=== PATIENT | female | born 1965 ===

== ENCOUNTER 2018-09-21 07:12 | Observation (INO) | payer MEDICARE, OTHER ==
[2018-09-21] VITALS (14 sets, daily range): BP systolic 119–183; BP diastolic 55–76
[~2018-09-21] VITALS: Ht 162.6 cm; Wt 108.0 kg
[2018-09-21 08:31] LABS: BASOPHILS % (AUTO) 1.2 % (0.0-2.0); EOSINOPHILS % (AUTO) 5.1 % (0.0-3.0); HEMATOCRIT 25.4 % (37.0-47.0); HEMOGLOBIN 8.7 G/DL (12.0-16.0); LYMPHOCYTES % (AUTO) 21.5 % (20.0-45.0); MEAN CORPUSCULAR VOLUME 99 FL (80-99); MONOCYTES % (AUTO) 8.8 % (1.0-10.0); NEUTROPHILS % (AUTO) 63.4 % (45.0-75.0); PLATELET COUNT 150 K/UL (150-450); RED BLOOD COUNT 2.57 M/UL (4.20-5.40); RED CELL DISTRIBUTION WIDTH 19.1 % (11.6-14.8); WHITE BLOOD COUNT 6.5 K/UL (4.8-10.8)
[2018-09-21 08:43] LABS: ANION GAP 11 mmol/L (5-15); BLOOD UREA NITROGEN 44 mg/dL (7-18); CARBON DIOXIDE 24 MMOL/L (21-32); CHLORIDE 99 MMOL/L (98-107); CREATININE 3.4 MG/DL (0.55-1.30); POTASSIUM 4.1 MMOL/L (3.5-5.1); SODIUM 134 MMOL/L (136-145)
[2018-09-21] MEDS ORDERED: NEPHRO AID GT (08:46)
[2018-09-21] MEDS ORDERED: LOSARTAN POTASS25 MG ORAL (08:47)
[2018-09-21] MEDS ORDERED: ASCORBIC ACID500 MG GT (08:48)
[2018-09-21] MEDS ORDERED: NORVASC5 MG GT (08:49)
[2018-09-21] MEDS ORDERED: prostat sf GT (08:51)
[2018-09-21] MEDS ORDERED: QUESTRAN PACKET4 G1 GT (09:03)
[2018-09-21] MEDS ORDERED: HYDRALAZINE HCL50 MG GT (09:04)
[2018-09-21] MEDS ORDERED: OYSTER SHELL C500 MG GT (09:05)
[2018-09-21] MEDS ORDERED: KEPPRA1000 MG GT (09:06)
[2018-09-21] MEDS ORDERED: Vit D3 GT (09:07)
[2018-09-21] MEDS ORDERED: LEVEMIR FL100 UNIT/1 SUBQ (09:08)
[2018-09-21] MEDS ORDERED: [UNRECOGNIZED DRUG - OTHER] GT (09:09)
[2018-09-21] MEDS ORDERED: RENVELA0.8 GM GT (09:10)
[2018-09-21] MEDS ORDERED: HUMULIN R100 UNIT/1 SUBQ (09:11)
--- NOTE | 2018-09-21 09:50 | Anethesia Preoperative Eval ---
Anesthesia Pre-op PMH/ROS General Date of Evaluation: Sep 21, 2018 Anesthesiologist: Michael ASA Score: ASA 4 Mallampati Score Class I : Soft palate, uvula, fauces, pillars visible Class II: Soft palate, uvula, fauces visible Class III: Soft palate, base of uvula visible Class IV: Only hard plate visible Mallampati Classification: Class III Surgeon: Lee Diagnosis: ESRD Surgical Procedure: Right arm AV shunt Anesthesia History: none Family History: no anesthesia problems Allergies: Coded Allergies: VANCOMYCIN (Verified Allergy, Unknown, unknown, 09/21/18) Medications: see eMAR Patient NPO?: Yes NPO Date: Sep 20, 2018 NPO Time: 23:00 Past Medical History Cardiovascular: Reports: HTN, CO, other - CHF, HLD; Denies: CAD, valve dz, arrhythmia Pulmonary: Reports: COPD, other - respiratory failure, vent dependent, s/p trach; Denies: asthma, KOURTNEY Gastrointestinal/Genitourinary: Reports: ESRD; Denies: GERD, CRI, other Neurologic/Psychiatric: Reports: CVA, other - encephalopathy, seizure d/o; Denies: dementia, depression/anxiety, TIA Endocrine: Reports: DM; Denies: hypothyroidism, steroids, other HEENT: Denies: cataract (L), cataract (R), glaucoma, YOCHA DEHE (L), YOCHA DEHE (R), other Hematology/Immune: Reports: anemia - chronic; Denies: DVT, bleeding disorder, other Musculoskeletal/Integumentary: 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 Exam Physician Exam Last Vital Signs Date Time Temp Pulse Resp B/P (MAP) Pulse Ox O2 Delivery O2 Flow Rate FiO2 09/21/18 08:00 97.4 62 20 119/57 100 Mechanical Ventilator 40 Constitutional: NAD, other - unresponsisve Cardiovascular: RRR, other - trach in place, on mechanical ventilation Respiratory: CTA Airway Exam Mallampati Score: Class III MO: limited ROM: limited Anesthesia Pre-op A/P Labs Hematology Test 09/21/18 08:10 White Blood Count 6.5 K/UL (4.8-10.8) Red Blood Count 2.57 M/UL (4.20-5.40) L Hemoglobin 8.7 G/DL (12.0-16.0) L Hematocrit 25.4 % (37.0-47.0) L Mean Corpuscular Volume 99 FL (80-99) Mean Corpuscular Hemoglobin 33.9 PG (27.0-31.0) H Mean Corpuscular Hemoglobin Concent 34.3 G/DL (32.0-36.0) Red Cell Distribution Width 19.1 % (11.6-14.8) H Platelet Count 150 K/UL (150-450) Mean Platelet Volume 6.8 FL (6.5-10.1) Neutrophils (%) (Auto) 63.4 % (45.0-75.0) Lymphocytes (%) (Auto) 21.5 % (20.0-45.0) Monocytes (%) (Auto) 8.8 % (1.0-10.0) Eosinophils (%) (Auto) 5.1 % (0.0-3.0) H Basophils (%) (Auto) 1.2 % (0.0-2.0) Coagulation Test 09/21/18 08:10 Prothrombin Time 10.1 SEC (9.30-11.50) Prothromb Time International Ratio 1.0 (0.9-1.1) Activated Partial Thromboplast Time 27 SEC (23-33) Chemistry Test 09/21/18 08:10 Sodium Level 134 MMOL/L (136-145) L Potassium Level 4.1 MMOL/L (3.5-5.1) Chloride Level 99 MMOL/L (98-107) Carbon Dioxide Level 24 MMOL/L (21-32) Anion Gap 11 mmol/L (5-15) Blood Urea Nitrogen 44 mg/dL (7-18) H Creatinine 3.4 MG/DL (0.55-1.30) H Estimat Glomerular Filtration Rate 14.2 mL/min (>60) Glucose Level 156 MG/DL (74-106) H Calcium Level 9.0 MG/DL (8.5-10.1) Studies Pre-op Studies: EKG - sb @ 58 Risk Assessment & Plan Assessment: ASA IV Plan: GA Status Change Before Surgery: No Pre-Antibiotics Drug: Ancef 2g Given Within 1 Hr of Incision: Marta Damian MD Sep 21, 2018 09:50
[2018-09-21] MEDS ORDERED: fentaNYL 100 mcg/2 mL IV ONE (11:41)
[2018-09-21] MEDS ORDERED: Lidocaine 1% MPF 10mg/ml 5ml ONE (11:41)
[2018-09-21] MEDS ORDERED: Propofol 200mg/20ml IV ONE (11:41)
[2018-09-21] MEDS ORDERED: Midazolam 2mg/2ml Inj ONE (11:42)
[2018-09-21] MEDS ORDERED: Bacitracin Oint 15gm Tube TOPIC ONE (11:51)
[2018-09-21] MEDS ORDERED: Heparin 1000 units/ml 1ml Vial ONE (11:51)
[2018-09-21] MEDS ORDERED: Heparin 5000 units/ml inj ONE (11:51)
[2018-09-21] MEDS ORDERED: Bacitracin 50000 Units Vial ONE (11:52)
[2018-09-21] MEDS ORDERED: Bupivacaine 0.5% 10ml INJ ONE (11:52)
[2018-09-21] MEDS ORDERED: Lidocaine 1% Plain 30 ml INJ ONE (11:52)
[2018-09-21] MEDS ORDERED: LR 1000ml ONE (12:00)
[2018-09-21] MEDS ORDERED: NS Irrig 1000ml ONE (12:00)
[2018-09-21] MEDS ORDERED: Sterile Water Irrig 1000ml IRRIG ONE (12:00)
[2018-09-21] MEDS ORDERED: Hydromorphone 0.5mg/0.5ml inj IVP PRN (12:30)
[2018-09-21] MEDS ORDERED: LORazepam Inj 2mg/ml 1ml IV PRN (12:30)
[2018-09-21] MEDS ORDERED: DiphenhydrAMINE 50mg/ml Inj IVP PRN (12:30)
[2018-09-21] MEDS ORDERED: Metoclopramide 10mg/2ml Inj IVP PRN (12:30)
[2018-09-21] MEDS ORDERED: fentaNYL 100 mcg/2 mL IV PRN (12:30)
[2018-09-21] MEDS ORDERED: Midazolam 2mg/2ml Inj IVP PRN (12:30)
--- NOTE | 2018-09-21 12:38 | Pre-Procedure Note/Attestation ---
Pre-Procedure Note/Attestation Complete Prior to Procedure Planned Procedure: right Procedure Narrative: arm AVF exploration, possible revision, transposition, ligation, catheter replacement Indications for Procedure Pre-Operative Diagnosis: ESRD; inaccessible AVF Attestation I attest that I discussed the nature of the procedure; its benefits; risks and complications; and alternatives (and the risks and benefits of such alternatives ), prior to the procedure, with the patient (or the patient's legal veterans service representative). I attest that, if there was a reasonable possibility of needing a blood transfusion, the patient (or the patient's legal veterans service representative) was given the [facility] standardized written summary, pursuant to the Lucien Monica Blood Safety Act ([place] Health and Safety Code # 1645, as amended). I attest that I re-evaluated the patient just prior to the surgery and that there has been no change in the patient's H&P, except as documented below: Juanjo Howard MD Sep 21, 2018 12:38
--- NOTE | 2018-09-21 15:00 | Immediate Post-Op Evaluation ---
Immediate Post-Op Evalulation Immediate Post-Op Evalulation Procedure: Right arm AV shunt Date of Evaluation: Sep 21, 2018 Time of Evaluation: 15:01 IV Fluids: 400 Blood Products: 0 Estimated Blood Loss: min Urinary Output: 0 Blood Pressure Systolic: 131 Blood Pressure Diastolic: 56 Pulse Rate: 58 Respiratory Rate: 16 O2 Sat by Pulse Oximetry: 100 Temperature (Fahrenheit): 97.8 Pain Score (1-10): 0 Nausea: No Vomiting: No Complications 0 Patient Status: no response - baseline, ventilated - baseline, none Hydration Status: adequate Drug: Ancef 2g Given Within 1 Hr of Incision: Yes Marta Guerra MD Sep 21, 2018 15:00
--- NOTE | 2018-09-21 15:24 | Brief Operative Note ---
Immediate Post Operative Note Operative Note Pre-op Diagnosis: ESRD; inaccessible AVF Procedure: right arm AVF exploration and revision Post-op Diagnosis: same as pre-op Findings: consistent w/pre-op dx studies Surgeon: Marito Howard Anesthesia: general Specimen: none Complications: none Condition: stable Fluids: see anesth. record Estimated Blood Loss: minimal Drains: none Implant(s) used?: No Juanjo Howard MD Sep 21, 2018 15:24
--- NOTE | 2018-09-21 16:10 | NUR ---
NURSE NOTES: RECEIVED A NEW ADMISSION VIA BED ESCORTED BY [employer] TRAVEL COUNSELOR OF PACU.PT TRACH TO VENT OBTUNDED.PT ADMITED WITH DX OF ESRD,RIGHT ARM AV SHUNT REVISION.PT S/P EXPLORATION AND REVISION OF AV OF RT UPPER ARM.PT ASSESSED WITH DOPPLER GOOD BRUIT AND THRILL NOTED .PT TOLERATING WELL CURRENT VENT SETTINGS,SAT 99%.PT VENT SETTINGS AC-16,TV 500,PEEP-5,FIO2 40%.PT WITH PORTEX #8 PATENT AND INTACT.FULL BODY ASSESSMENT DONE ASSISTED WITH DULCE MARIA RN IN CHARGE.NO EVIDENCE OF PRESSURE ULCER NOTED AT THIS TIME.PLACED A TELEPHONE CALL TO DR BARRAGAN AND LEFT MESSAGE ON EMERGENCY VOICE MAIL REGARDING NEW ADMISSION.A WAITING FOR M.D TO CALL ME BACK.WILL CONT TO MONITOR.
--- NOTE | 2018-09-21 19:30 | NUR ---
HAND-OFF: Report given to .LIANE HERNANDEZ.
--- NOTE | 2018-09-21 19:30 | NUR ---
NURSE NOTES: Received report from Irene Santana RN. Patient is asleep in bed, obtunded. Sinus rhythm on toy assembler. Trach-vent settings: Portex 8, AC 16, Vt 500, FiO2 40%, PEEP 5 and saturating well. S/p right upper arm AV shunt. Mahurkur catheter noted on left subclavian. Left lower leg 24g IV saline lock, intact and patent. Awaiting further admit orders. Will contact MD. Bed locked in lowest position with padded side rails up x3. Call light left within reach. Will continue to monitor.
--- NOTE | 2018-09-21 20:30 | Consultation ---
DATE OF CONSULTATION: 09/21/2018 PULMONARY CONSULTATION CONSULTING PHYSICIAN: Wade Garcia M.D. REFERRING PHYSICIAN: Miguelangel Nagy MD REASON FOR CONSULTATION: Respiratory failure. HISTORY OF PRESENT ILLNESS: This is a 53-year-old unfortunate female who presented for right arm AV fistula exploration and revision. I was asked to assist and help monitor the ventilator. The patient is chronically ventilator dependent. The patient unable to give any history. The patient has end-stage dialysis need as well. The patient's care reviewed and discussed with the nursing staff. The findings noted and reviewed. The patient's [facility] records as well reviewed in detail. PAST MEDICAL HISTORY: Notable for respiratory failure, tracheostomy, renal failure, hypertension, diabetes, seizure disorder, hypertensive heart disease. MEDICATIONS: Reviewed. ALLERGIES: Reviewed. SOCIAL HISTORY: Noted and reviewed. The patient is a fpc patient. REVIEW OF SYSTEMS: Unobtainable due to the patient's present state. PHYSICAL EXAMINATION: GENERAL: An ill-appearing female. VITAL SIGNS: Blood pressure 129/55, pulse 60, respiratory rate 16, saturations 98%, temperature is 97.1. HEENT: Fairly negative. NECK: Supple. Trachea is midline. LUNGS: Moderate breath sounds. Occasional rhonchi. CARDIAC: Slightly distant but appears to be overall regular. The patient is without clear murmurs, rubs, gallops. ABDOMEN: Overall soft, nontender. G-tube in place. EXTREMITIES: No cyanosis or clubbing. Fistula noted in place. The ventilator noted. The patient mechanically ventilated. Respiratory rate 16. The patient is on full support at this time. LABORATORY DATA: Otherwise reviewed. Hemoglobin 8.7, hematocrit 25. Chemistries noted and reviewed. BUN reviewed , creatinine 3.4. IMPRESSION: 1. Respiratory failure. 2. Tracheostomy. 3. Chronic encephalopathy. 4. End-stage renal disease. 5. AV fistula exploration and revision. 6. Chronic anemia. RECOMMENDATION: 1. Supportive care. 2. Maintain ventilatory management, followup and recommend. 3. Medications noted and reviewed. 4. Hemodialysis per Renal. 5. Feedings and monitor acid base exchange. 6. We will follow clinically recommended. I appreciate the opportunity to assist you in this patient's case. Wade Garcia M.D. DR: Guanakito JOB#: [id number] CC: EDENILSON
--- NOTE | 2018-09-21 20:30 | NUR ---
NURSE NOTES: Received further admission orders from Dr. Jose MD. Noted and carried. Patient does not have any s/s of acute distress at this time. Will continue to monitor. Addendum: 09/22/18 at 0627 by FRAN LEONE RN Further orders were to continue SNF orders.
[2018-09-21] MEDS ORDERED: Acetaminophen 650mg/20.3ml GT PRN (20:45)
[2018-09-21] MEDS ORDERED: Levemir Flexpen SUBQ SCH (21:00)
[2018-09-21] MEDS: Losartan 25mg tab ORAL SCH (22:29)
[2018-09-21] MEDS: NovoLOG Insulin Flexpen SUBQ SCH (22:31)
[2018-09-22] VITALS: BP 152/80
[2018-09-22] MEDS ORDERED: Dyna-Hex 2% Top Sol 2oz TOPIC ONE
[2018-09-22 04:00] VITALS: BP 137/65
[2018-09-22] MEDS: HydrALAZINE 50mg tab GT SCH ×2 (06:11→13:22)
[2018-09-22] MEDS: NovoLOG Insulin Flexpen SUBQ SCH (06:12)
[2018-09-22] MEDS ORDERED: NovoLOG Insulin Flexpen SUBQ SCH ×2 (06:30→12:00)
[2018-09-22 06:31] LABS: ANION GAP 13 mmol/L (5-15); BLOOD UREA NITROGEN 54 mg/dL (7-18); CALCIUM 8.7 MG/DL (8.5-10.1); CARBON DIOXIDE 23 MMOL/L (21-32); CHLORIDE 100 MMOL/L (98-107); CREATININE 4.4 MG/DL (0.55-1.30); POTASSIUM 3.4 MMOL/L (3.5-5.1); SODIUM 136 MMOL/L (136-145)
--- NOTE | 2018-09-22 06:31 | 48 Hour Post Anesthesia Eval ---
Post Anesthesia Evaluation Procedure: Right arm AV shunt Date of Evaluation: Sep 22, 2018 Time of Evaluation: 06:10 Blood Pressure Systolic: 137 0: 65 Pulse Rate: 71 Respiratory Rate: 18 Temperature (Fahrenheit): 99 O2 Sat by Pulse Oximetry: 100 Airway: other - on mechanical ventilatin Nausea: No Vomiting: No Pain Intensity: 0 Hydration Status: adequate Cardiopulmonary Status: at baseline Mental Status/LOC: patient returned to baseline Post-Anesthesia Complications: 0 Follow-up care needed: N/A - further care as per primary team Marta Guerra MD Sep 22, 2018 06:31
--- NOTE | 2018-09-22 06:40 | NUR ---
NURSE NOTES: Left message for Dr. Yakov MD regarding patient's potassium trending down to 3.4. Awaiting response.
--- NOTE | 2018-09-22 07:10 | NUR ---
HAND-OFF: Report given to Irene Caro RN.
[2018-09-22 07:11] LABS: BASOPHILS % (AUTO) 0.7 % (0.0-2.0); EOSINOPHILS % (AUTO) 2.8 % (0.0-3.0); HEMATOCRIT 26.2 % (37.0-47.0); HEMOGLOBIN 8.9 G/DL (12.0-16.0); LYMPHOCYTES % (AUTO) 21.2 % (20.0-45.0); MEAN CORPUSCULAR VOLUME 99 FL (80-99); MONOCYTES % (AUTO) 8.3 % (1.0-10.0); NEUTROPHILS % (AUTO) 66.9 % (45.0-75.0); PLATELET COUNT 130 K/UL (150-450); RED BLOOD COUNT 2.64 M/UL (4.20-5.40); RED CELL DISTRIBUTION WIDTH 19.6 % (11.6-14.8); WHITE BLOOD COUNT 7.3 K/UL (4.8-10.8)
--- NOTE | 2018-09-22 07:11 | NUR ---
NURSE NOTES: Received patient from DAVID Lau. Patient in bed and obtunded. lunchroom monitor in placed. Trach to vent dependent Portex 8 AC 16 TV 500 Fi02 40% Peep 5. Gtube feeding of Nephro at 30cc/hour - 50cc/hour(goal). SHERRY AV shunt covered with dressing. Eliza Dewey Subclavian and Left lower leg IV site asymptomatic. Per PM nurse, Dr. Nagy was called regarding potassium of 3.4. Awaiting for call back. Bed in lowest position with side rails up. Will continue to follow plan of care.
[2018-09-22 08:00] VITALS: BP 133/79
[2018-09-22] MEDS ORDERED: Heparin 5000 units/ml inj SUBQ SCH (09:00)
[2018-09-22] MEDS ORDERED: Ascorbic Acid 500mg tab GT SCH (09:00)
[2018-09-22] MEDS ORDERED: levETIRAcetam 500mg/5ml Liquid GT SCH (09:00)
[2018-09-22] MEDS ORDERED: Cholestyramine 4gm Pkt GT SCH (09:00)
[2018-09-22] MEDS: Losartan 25mg tab ORAL SCH (09:25)
[2018-09-22] MEDS: Renvela 800mg Pkt GT SCH ×2 (09:26→13:22)
--- NOTE | 2018-09-22 10:11 | NUR ---
RD ASSESSMENT & RECOMMENDATIONS SEE CARE ACTIVITY FOR COMPLETE ASSESSMENT DAILY ESTIMATED NEEDS: Needs based on ESRD on HD, Critical care 65.9kg adj 24-30 kcals/kg 3212-7220 total kcals 1.2-2 g protein/kg 79-132 g total protein Fluid per MD, on HD NUTRITION DIAGNOSIS: 1) Increased kcal and protein needs r/t renal dysfunction as evidenced by pt w/ ESRD on HD 2) Swallowing difficulty r/r respiratory status as evidenced by pt is vent dep via trach, PEG dep. CURRENT TF: NEPRO @50ml/hr x18 hrs ENTERAL NUTRITION RECOMMENDATIONS: REC TF change to 45ml/hr x20 hrs + Prosource x1 daily to provide 900ml, 1620 kcal, 73g + 11g prot, 654ml free H20 - REC TO LOWER TF TO 45ML/ HR and INCREASE RUN TIME TO 20HRS per day - Add PROSOURCE 1 packet daily to better meet est prot needs - Flush per MD/ HOB over 30 degrees ADDITIONAL RECOMMENDATIONS: 1) Daily CALIBRATED BED SCALE WTS PER SNF: 220# (100kg) from 09/19/18 2) Monitor lytes daily 3) Add NEPHROVITE x1 daily
--- NOTE | 2018-09-22 10:27 | History and Physical ---
History of Present Illness General Date patient seen: Sep 22, 2018 Present Illness HPI 53 y/o female with ESRD, chronic respiratory failure, admitted to observation last night after exploration and revision of upper ext fistula for future access for HD. Pt. with no specific c/o, seen by pulmonary for vent help pt post op tolerating tube feeds, mental status stable and at baseline Allergies: Coded Allergies: VANCOMYCIN (Verified Allergy, Unknown, unknown, 09/21/18) Medication History Scheduled Amlodipine Besylate (Norvasc), 5 MG GT DAILY, (Reported) Ascorbic Acid* (Ascorbic Acid*), 500 MG GT DAILY, (Reported) Calcium Carbonate (Oyster Shell Calcium), 500 MG GT BID, (Reported) Cholestyramine (with Sugar) (Questran Packet), 2 PACKET GT DAILY, (Reported) Hydralazine Hcl* (Hydralazine Hcl*), 50 MG GT TID, (Reported) Insulin Detemir (Levemir Flexpen), 28 SUBQ Q12HR, (Reported) Levetiracetam (Keppra), 1,000 MG GT DAILY, (Reported) Losartan Potassium* (Losartan Potassium*), 25 MG ORAL Q12HR, (Reported) Sevelamer Carbonate* (Renvela*), 800 MG GT THREE TIMES A DAY, (Reported) [Vit D3], 50,000 INTLU GT QWEEK, (Reported) [nephro aid], 1 TAB GT DAILY, (Reported) [neutrophos], 1 PACKET GT DAILY, (Reported) [prostat sf], 30 ML GT BID, (Reported) Miscellaneous Medications Insulin Regular, Human (Humulin R), 0 SUBQ, (Reported) Medications Narrative see list reviewed Patient History Healthcare decision maker Resuscitation status Full Code Advanced Directive on File Review of Systems Constitutional: Reports: no symptoms Eye: Reports: no symptoms Respiratory: Reports: shortness of breath, other Musculoskeletal: Denies: no symptoms, see HPI, back pain, gout, joint pain, joint swelling, muscle pain, muscle stiffness, other Skin: Denies: no symptoms, see HPI, rash, change in color, change in hair/nails , dryness, lesions, other Psychiatric: Denies: no symptoms, see HPI, prior hx, anxiety, depressed feelings, emotional problems, SI, HI, hallucinations, other Neurological: Denies: no symptoms, see HPI, headache, numbness, paresthesia, seizure, tingling, tremors, focal weakness, syncope, dizziness, other Endocrine: Denies: no symptoms, see HPI, excessive sweating, flushing, intolerance to temperature, increased thirst, increased urine, unexplained weight loss, other Physical Exam General Appearance: no apparent distress, lethargic, confused Lines, tubes and drains: endotracheal tube, gtube, dialysis access HEENT: normocephalic, atraumatic, EOMI, carotid(s) normal Neck: supple Respiratory/Chest: rhonchi - bilaterally Abdomen: no organomegaly Skin Exam: warm/dry Neurologic: call center trainer II-XII grossly normal Last 24 Hour Vital Signs Date Time Temp Pulse Resp B/P (MAP) Pulse Ox O2 Delivery O2 Flow Rate FiO2 09/22/18 09:25 133/79 09/22/18 09:25 66 133/79 09/22/18 08:51 67 16 40 09/22/18 08:00 40 09/22/18 08:00 98.2 66 16 133/79 (97) 100 09/22/18 06:55 68 16 40 09/22/18 06:31 71 18 100 09/22/18 06:11 137/65 09/22/18 05:14 64 16 40 09/22/18 04:00 40 09/22/18 04:00 99.0 71 18 137/65 (89) 100 09/22/18 03:41 70 09/22/18 02:52 78 18 40 09/22/18 01:45 76 19 40 09/22/18 00:05 70 09/22/18 00:00 40 09/22/18 00:00 98.8 68 18 152/80 (104) 100 09/21/18 22:49 65 16 40 09/21/18 22:29 139/70 09/21/18 21:00 Mechanical Ventilator Mechanical Ventilator 09/21/18 20:35 77 17 40 09/21/18 20:00 98.4 68 16 139/70 (93) 100 09/21/18 19:29 66 09/21/18 19:01 72 18 40 09/21/18 17:53 69 20 Mechanical Ventilator 40 09/21/18 17:52 69 20 40 09/21/18 16:48 Mechanical Ventilator 09/21/18 16:15 98.0 65 19 138/66 (90) 99 09/21/18 16:10 64 09/21/18 15:44 97.1 60 16 129/55 98 Mechanical Ventilator 40 09/21/18 15:28 58 16 129/58 98 Mechanical Ventilator 40 09/21/18 15:15 59 16 137/61 98 Mechanical Ventilator 40 09/21/18 15:15 40 09/21/18 15:00 59 16 132/60 100 Mechanical Ventilator 40 09/21/18 15:00 59 16 134/60 100 Mechanical Ventilator 40 09/21/18 15:00 58 16 100 09/21/18 14:56 98.0 58 16 131/56 100 Mechanical Ventilator 40 09/21/18 10:34 60 16 154/69 (97) 98 Intake and Output 09/21/18 09/22/18 19:00 07:00 Intake Total 500 ml 240 ml Output Total 0 ml Balance 500 ml 240 ml Intake Oral 0 ml Free Water 60 ml IV Total 500 ml Tube Feeding 180 ml Output Urine Total 0 ml # Bowel Movements 2 Laboratory Tests Test 09/22/18 03:05 09/22/18 06:56 Sodium Level 136 MMOL/L (136-145) Potassium Level 3.4 MMOL/L (3.5-5.1) L Chloride Level 100 MMOL/L (98-107) Carbon Dioxide Level 23 MMOL/L (21-32) Anion Gap 13 mmol/L (5-15) Blood Urea Nitrogen 54 mg/dL (7-18) H Creatinine 4.4 MG/DL (0.55-1.30) H Estimat Glomerular Filtration Rate 10.5 mL/min (>60) Glucose Level 115 MG/DL (74-106) H Calcium Level 8.7 MG/DL (8.5-10.1) White Blood Count 7.3 K/UL (4.8-10.8) Red Blood Count 2.64 M/UL (4.20-5.40) L Hemoglobin 8.9 G/DL (12.0-16.0) L Hematocrit 26.2 % (37.0-47.0) L Mean Corpuscular Volume 99 FL (80-99) Mean Corpuscular Hemoglobin 33.8 PG (27.0-31.0) H Mean Corpuscular Hemoglobin Concent 34.0 G/DL (32.0-36.0) Red Cell Distribution Width 19.6 % (11.6-14.8) H Platelet Count 130 K/UL (150-450) L Mean Platelet Volume 6.9 FL (6.5-10.1) Neutrophils (%) (Auto) 66.9 % (45.0-75.0) Lymphocytes (%) (Auto) 21.2 % (20.0-45.0) Monocytes (%) (Auto) 8.3 % (1.0-10.0) Eosinophils (%) (Auto) 2.8 % (0.0-3.0) Basophils (%) (Auto) 0.7 % (0.0-2.0) Height (Feet): 5 Height (Inches): 4.00 Weight (Pounds): 232 Medications Current Medications Medications (Trade) Dose Ordered Sig/Dl Route PRN Reason Start Time Stop Time Status Last Admin Dose Admin Acetaminophen (Tylenol) 650 mg Q4H PRN GT Mild Pain/Temp > 100.5 09/21/18 20:45 10/21/18 20:44 Amlodipine Besylate (Norvasc) 5 mg DAILY GT 09/22/18 09:00 10/22/18 08:59 09/22/18 09:25 Ascorbic Acid (Vitamin C) 500 mg DAILY GT 09/22/18 09:00 10/22/18 08:59 09/22/18 09:25 Calcium Carbonate (Os-Juan Carlos) 500 mg BID GT 09/22/18 09:00 10/22/18 08:59 09/22/18 09:25 Chlorhexidine Gluconate (Martine-Hex 2%) 1 applic DAILY@1999 TOPIC 09/22/18 20:00 10/22/18 19:59 Cholestyramine Resin (Questran) 4 gm DAILY GT 09/22/18 09:00 10/22/18 08:59 09/22/18 09:26 Dextrose (Dextrose 50%) 25 ml Q30M PRN IV Hypoglycemia 09/21/18 20:45 10/21/18 20:44 Dextrose (Dextrose 50%) 50 ml Q30M PRN IV Hypoglycemia 09/21/18 22:00 10/21/18 21:59 Heparin Sodium (Porcine) (Heparin 5000 units/ml) 5,000 units EVERY 12 HOURS SUBQ 09/22/18 09:00 10/22/18 08:59 09/22/18 09:34 Hydralazine HCl (Apresoline) 50 mg Q8HR GT 09/22/18 06:00 10/22/18 05:59 09/22/18 06:11 Insulin Aspart (NovoLOG) EVERY 6 HOURS SUBQ 09/22/18 12:00 10/21/18 22:29 Insulin Detemir (Levemir) 28 units BEDTIME SUBQ 09/22/18 23:00 10/21/18 22:59 Levetiracetam (Keppra) 500 mg Q12HR GT 09/22/18 09:00 10/22/18 08:59 09/22/18 09:25 Losartan Potassium (Cozaar) 25 mg Q12HR ORAL 09/21/18 22:00 10/21/18 21:59 09/22/18 09:25 Sevelamer Carbonate (Renvela) 800 mg THREE TIMES A DAY GT 09/22/18 09:00 10/22/18 08:59 09/22/18 09:26 Assessment/Plan Problem List: (1) ESRD (end stage renal disease) Assessment & Plan: - pt will resume hd tomroow , will arrange as outpt. -s/p new fistula revision -watch lytes, volume closely ICD Codes: N18.6 - End stage renal disease SNOMED: 70543308 (2) Respirator mechanical failure Assessment & Plan: -apprec pulmonary eval, vent settings noted ICD Codes: J95.850 - Mechanical complication of respirator SNOMED: 38192374378546 (3) Dysphagia Assessment & Plan: -cont tube feeds ICD Codes: R13.10 - Dysphagia, unspecified SNOMED: 92301260, 056340628 Status: stable Miguelangel Nagy M.D. Sep 22, 2018 10:27
[2018-09-22] MEDS ORDERED: LEVEMIR FL100 UNIT/1 SUBQ (10:29)
--- NOTE | 2018-09-22 10:30 | NUR ---
NURSE NOTES: Dr. Nagy at bedside. Informed about Potassium 3.4 and HGB 8.9, HCT 26.2. No new order.
[2018-09-22 12:00] VITALS: BP 146/77
--- NOTE | 2018-09-22 12:11 | NUR ---
NURSE NOTES: Spoke to DAVID Anguiano Ex Chef from [facility] and gave report.
--- NOTE | 2018-09-22 12:31 | NUR ---
Recived order from Dr Nagy discharged today called to [facility] and talked to Catherine faxed paper at [phone].Patient will be admitted at room 399-c station c. ambulance made aware latest ambulance fruit picker 3pm.
[2018-09-22 13:22] VITALS: BP 146/77
--- NOTE | 2018-09-22 14:28 | Pulmonology Progress Note ---
Assessment/Plan Assessment/Plan IMPRESSION: 1. Respiratory failure. 2. Tracheostomy. 3. Chronic encephalopathy. 4. End-stage renal disease. 5. AV fistula exploration and revision. 6. anemia 7. diabetes PLAN sliding scale care noted respiratory care Ventilatory support SNF meds supportive care suction no wean oxygen therapy prognosis guarded dc planning impression, plan, and exam edited and reviewed in detail care discussed with RN Subjective ROS Limited/Unobtainable: Yes Allergies: Coded Allergies: VANCOMYCIN (Verified Allergy, Unknown, unknown, 09/21/18) Subjective care discussed and vent reviewed orders reconciled Objective Last 24 Hour Vital Signs Date Time Temp Pulse Resp B/P (MAP) Pulse Ox O2 Delivery O2 Flow Rate FiO2 09/22/18 13:39 77 09/22/18 13:22 146/77 09/22/18 13:20 69 16 40 09/22/18 12:00 98.4 75 16 146/77 (100) 100 09/22/18 12:00 40 09/22/18 10:40 77 21 40 09/22/18 09:25 133/79 09/22/18 09:25 66 133/79 09/22/18 09:00 Mechanical Ventilator Mechanical Ventilator 09/22/18 08:51 67 16 40 09/22/18 08:00 40 09/22/18 08:00 98.2 66 16 133/79 (97) 100 09/22/18 07:54 70 09/22/18 06:55 68 16 40 09/22/18 06:31 71 18 100 09/22/18 06:11 137/65 09/22/18 05:14 64 16 40 09/22/18 04:00 40 09/22/18 04:00 99.0 71 18 137/65 (89) 100 09/22/18 03:41 70 09/22/18 02:52 78 18 40 09/22/18 01:45 76 19 40 09/22/18 00:05 70 09/22/18 00:00 40 09/22/18 00:00 98.8 68 18 152/80 (104) 100 09/21/18 22:49 65 16 40 09/21/18 22:29 139/70 09/21/18 21:00 Mechanical Ventilator Mechanical Ventilator 09/21/18 20:35 77 17 40 09/21/18 20:00 98.4 68 16 139/70 (93) 100 09/21/18 19:29 66 09/21/18 19:01 72 18 40 09/21/18 17:53 69 20 Mechanical Ventilator 40 09/21/18 17:52 69 20 40 09/21/18 16:48 Mechanical Ventilator 09/21/18 16:15 98.0 65 19 138/66 (90) 99 09/21/18 16:10 64 09/21/18 15:44 97.1 60 16 129/55 98 Mechanical Ventilator 40 09/21/18 15:28 58 16 129/58 98 Mechanical Ventilator 40 09/21/18 15:15 59 16 137/61 98 Mechanical Ventilator 40 09/21/18 15:15 40 09/21/18 15:00 59 16 132/60 100 Mechanical Ventilator 40 09/21/18 15:00 59 16 134/60 100 Mechanical Ventilator 40 09/21/18 15:00 58 16 100 09/21/18 14:56 98.0 58 16 131/56 100 Mechanical Ventilator 40 Intake and Output 09/21/18 09/22/18 19:00 07:00 Intake Total 500 ml 270 ml Output Total 0 ml Balance 500 ml 270 ml Intake Oral 0 ml Free Water 60 ml IV Total 500 ml Tube Feeding 210 ml Output Urine Total 0 ml # Bowel Movements 2 Objective GENERAL: An ill-appearing female. HEENT: Fairly negative. NECK: Supple. Trachea is midline. LUNGS: Moderate breath sounds. Occasional rhonchi. CARDIAC: Slightly distant but appears to be overall regular. The patient is without clear murmurs, rubs, gallops. ABDOMEN: Overall soft, nontender. G-tube in place. EXTREMITIES: No cyanosis or clubbing. Fistula noted in place. poorly responsive Laboratory Tests 09/22/18 03:05: Sodium Level 136, Potassium Level 3.4L, Chloride Level 100, Carbon Dioxide Level 23, Anion Gap 13, Blood Urea Nitrogen 54H, Creatinine 4.4H, Estimat Glomerular Filtration Rate 10.5, Glucose Level 115H, Calcium Level 8.7 09/22/18 06:56: White Blood Count 7.3, Red Blood Count 2.64L, Hemoglobin 8.9L, Hematocrit 26.2L , Mean Corpuscular Volume 99, Mean Corpuscular Hemoglobin 33.8H, Mean Corpuscular Hemoglobin Concent 34.0, Red Cell Distribution Width 19.6H, Platelet Count 130L, Mean Platelet Volume 6.9, Neutrophils (%) (Auto) 66.9, Lymphocytes (%) (Auto) 21.2, Monocytes (%) (Auto) 8.3, Eosinophils (%) (Auto) 2.8, Basophils (%) (Auto) 0.7 Current Medications Medications (Trade) Dose Ordered Sig/Dl Route PRN Reason Start Time Stop Time Status Last Admin Dose Admin Acetaminophen (Tylenol) 650 mg Q4H PRN GT Mild Pain/Temp > 100.5 09/21/18 20:45 10/21/18 20:44 Amlodipine Besylate (Norvasc) 5 mg DAILY GT 09/22/18 09:00 10/22/18 08:59 09/22/18 09:25 Ascorbic Acid (Vitamin C) 500 mg DAILY GT 09/22/18 09:00 10/22/18 08:59 09/22/18 09:25 Calcium Carbonate (Os-Juan Carlos) 500 mg BID GT 09/22/18 09:00 10/22/18 08:59 09/22/18 09:25 Chlorhexidine Gluconate (Martine-Hex 2%) 1 applic DAILY@2000 TOPIC 09/22/18 20:00 10/22/18 19:59 Cholestyramine Resin (Questran) 4 gm DAILY GT 09/22/18 09:00 10/22/18 08:59 09/22/18 09:26 Dextrose (Dextrose 50%) 25 ml Q30M PRN IV Hypoglycemia 09/21/18 20:45 10/21/18 20:44 Dextrose (Dextrose 50%) 50 ml Q30M PRN IV Hypoglycemia 09/21/18 22:00 10/21/18 21:59 Heparin Sodium (Porcine) (Heparin 5000 units/ml) 5,000 units EVERY 12 HOURS SUBQ 09/22/18 09:00 10/22/18 08:59 09/22/18 09:34 Hydralazine HCl (Apresoline) 50 mg Q8HR GT 09/22/18 06:00 10/22/18 05:59 09/22/18 13:22 Insulin Aspart (NovoLOG) EVERY 6 HOURS SUBQ 09/22/18 12:00 10/21/18 22:29 09/22/18 11:44 Insulin Detemir (Levemir) 28 units BEDTIME SUBQ 09/22/18 23:00 10/21/18 22:59 Levetiracetam (Keppra) 500 mg Q12HR GT 09/22/18 09:00 10/22/18 08:59 09/22/18 09:25 Losartan Potassium (Cozaar) 25 mg Q12HR ORAL 09/21/18 22:00 10/21/18 21:59 09/22/18 09:25 Sevelamer Carbonate (Renvela) 800 mg THREE TIMES A DAY GT 09/22/18 09:00 10/22/18 08:59 09/22/18 13:22 Wade Garcia MD Sep 22, 2018 14:27
--- NOTE | 2018-09-22 15:00 | NUR ---
Discharge: Patient is being discharged from medical care. Patient in bed, obtunded, and stable. After care instructions and report were given to [facility] and [facility]. All medical devices such as IV and ID band were removed. Patient was transported out via gurney with [facility] and Ambulance Personnel to [facility] without any belongings.
[2018-09-22] MEDS ORDERED: Dyna-Hex 2% Top Sol 2oz TOPIC SCH (20:00)
[2018-09-22] MEDS ORDERED: Levemir Flexpen SUBQ SCH (23:00)
--- NOTE | 2018-09-24 13:12 | Cardiology Report ---
APPROVED REPORT EKG Measurement Heart [id number] Sinus bradycardia Nonspecific T wave abnormality Prolonged QT Abnormal ECG
--- NOTE | 2018-09-29 13:08 | Discharge Summary ---
Discharge Summary Discharge Summary _ DATE OF ADMISSION: 09/21/2018 DATE OF DISCHARGE: 09/22/2018 DISCHARGED BY: Dr. Miguelangel Nagy CONSULTANTS: Dr. Tho Howard BRIEF HOSPITAL COURSE: Patient is a 53-year-old female, of end-stage renal disease, chronic respiratory failure, was admitted on 09/21/2018 and underwent right arm AV fistula exploration and revision by Dr. Howard. She tolerated procedure well and was admitted for observation overnight postprocedure. She was given postop care. He was resumed on tube feeding. Pastoral Worker was consulted for ventilator management as patient is chronically ventilator dependent. Glucose was monitored. She was placed on insulin sliding scale. She was continued on Levemir nightly. She was continued on shelter medications. She was given respiratory care and supportive care. Patient was stable overnight. Patient to resume hemodialysis the following day , to be arranged as outpatient. She was eventually discharged back to SNF. FINAL DIAGNOSES: Status post right arm AV fistula exploration and revision End-stage renal disease Chronic respiratory failure Tracheostomy Dysphagia on G-tube Chronic encephalopathy Anemia Diabetes DISPOSITION: Patient was discharged to [facility] DISCHARGE MEDICATIONS: Refer to Discharge Medication List. I have been assigned to complete a discharge summary on this account, I was not involved with the patient's management. Rachel Vazquez NP Sep 29, 2018 13:08
--- NOTE | 2018-10-09 09:15 | Operative Note - Dictated ---
DATE OF OPERATION: 09/21/2018 PREOPERATIVE DIAGNOSES: 1. Inaccessible dialysis arteriovenous fistula in the right upper extremity. 2. End-stage renal disease. POSTOPERATIVE DIAGNOSES: 1. Inaccessible dialysis arteriovenous fistula in the right upper extremity. 2. End-stage renal disease as well as findings below. PROCEDURES: 1. Right arm dialysis arteriovenous fistula exploration and revision. 2. Dilation of right brachial vein. SURGEON: Juanjo Howard M.D. ANESTHESIA: General. ANESTHESIOLOGIST: Marta Lopez M.D. INDICATIONS: The patient had an AV fistula which is patent, but it is too deep to be accessed and therefore, exploration and possible revision was recommended. INTRAOPERATIVE FINDINGS: The brachial vein, the main outflow vein which had multiple tributaries some of which were divided as described below to allow transposition of the vein, however, the segment was stenotic, appeared severely sclerotic, and the potential for a usual AV fistula was questionable. The patient will therefore be followed for potential additional procedures to establish reliable permanent access for dialysis and be able to remove the existing tunneled catheter. DESCRIPTION OF PROCEDURE: With the patient in supine position and after induction of anesthesia, the right upper extremity was prepped and draped in usual sterile fashion. Skin was also infiltrated with local anesthetic. An incision was made near the AV fistula anastomosis at the level of the antecubital crease and continued more proximally to expose the outflow vein of the AV fistula which appeared to be the brachial vein. Some tributaries were divided between silk ties and Hemoclips to allow mobilization of the vein and to be able to do the transposition. The segment of the vein previously known to be stenotic and treated with angioplasty was then exposed and attempt at further dilation will be considered, however, as described above, the potential for this AV fistula to be reliably accessed was determined to be questionable and at this point, after hemostasis was ensured, the wound was irrigated with antibiotic solution and closed with interrupted sutures of 2-0 and 3-0 Vicryl followed by 4-0 Monocryl in subcuticular continuous fashion for skin closure. Antibiotic ointment and dressings were placed and the patient was brought out of anesthesia and transferred to PACU in stable condition. She tolerated the procedure well. At the conclusion of the procedure, sponge, needle, and instrument counts were correct. ESTIMATED BLOOD LOSS: Minimal. COMPLICATIONS: None. DRAINS: None. SPECIMEN: None. Juanjo Howard M.D. DR: Rachid JOB#: [id number] CC: Fred Salazar M.D. ; FAX#: [phone]
== END 2018-09-22 15:08 ==
LOC: SUR 07:12 → 2W 11:31 → UNDODISOB 09-22 15:08
DX: T82.520A Displacement of surgically created arteriovenous fistula, initial encounter (principal); Y84.1 Kidney dialysis as the cause of abnormal reaction of the patient, or of later complication, without mention of misadventure at the time of the procedure; E11.22 Type 2 diabetes mellitus with diabetic chronic kidney disease; N18.6 End stage renal disease; Z99.2 Dependence on renal dialysis; J96.10 Chronic respiratory failure, unspecified whether with hypoxia or hypercapnia; Z99.11 Dependence on respirator [ventilator] status; Z43.0 Encounter for attention to tracheostomy; Z88.1 Allergy status to other antibiotic agents; R13.10 Dysphagia, unspecified; Z43.1 Encounter for attention to gastrostomy; D64.9 Anemia, unspecified
CPT/HCPCS: 36415 ×2; 36832; 80048 ×2; 82962 ×2; 85025 ×2; 85610; 85730; 87081 ×3; 93005; 94002; 94003 ×2; 94664; G0378; G0379; J0690; J1644 ×2; J1815; J2001; J2250; J2704; J3010; J3490; S5561; 94150

== ENCOUNTER 2018-11-16 11:33 | Inpatient (IN) | payer MEDICARE, OTHER ==
[2018-11-16] VITALS (8 sets, daily range): BP systolic 112–146; BP diastolic 42–84
[~2018-11-16] VITALS: Ht 160 cm; Wt 99.8 kg
[~2018-11-16 11:33] MED LIST: ASCORBIC ACID500 MG GT; HUMULIN R100 UNIT/1 SUBQ; HYDRALAZINE HCL50 MG GT; KEPPRA1000 MG GT; LEVEMIR FL100 UNIT/1 SUBQ; LOSARTAN POTASS25 MG ORAL; NEPHRO AID GT; NORVASC5 MG GT; OYSTER SHELL C500 MG GT; QUESTRAN PACKET4 G1 GT; RENVELA0.8 GM GT; Vit D3 GT; [UNRECOGNIZED DRUG - OTHER] GT; prostat sf GT
[2018-11-16 11:54] LABS: BASOPHILS % (AUTO) 1.4 % (0.0-2.0); EOSINOPHILS % (AUTO) 2.5 % (0.0-3.0); HEMATOCRIT 41.8 % (37.0-47.0); HEMOGLOBIN 13.4 G/DL (12.0-16.0); LYMPHOCYTES % (AUTO) 23.5 % (20.0-45.0); MEAN CORPUSCULAR VOLUME 107 FL (80-99); MONOCYTES % (AUTO) 8.4 % (1.0-10.0); NEUTROPHILS % (AUTO) 64.2 % (45.0-75.0); PLATELET COUNT 109 K/UL (150-450); RED BLOOD COUNT 3.89 M/UL (4.20-5.40); WHITE BLOOD COUNT 7.2 K/UL (4.8-10.8)
[2018-11-16] MEDS ORDERED: QUESTRAN PACKET4 G1 ORAL (12:03)
[2018-11-16] MEDS ORDERED: LANTUS SOL100 UNIT/1 SUBQ (12:05)
[2018-11-16 12:06] LABS: ANION GAP 16 mmol/L (5-15); BLOOD UREA NITROGEN 65 mg/dL (7-18); CALCIUM 9.7 MG/DL (8.5-10.1); CARBON DIOXIDE 20 MMOL/L (21-32); CHLORIDE 99 MMOL/L (98-107); CREATININE 4.9 MG/DL (0.55-1.30); POTASSIUM 4.2 MMOL/L (3.5-5.1); SODIUM 135 MMOL/L (136-145)
[2018-11-16] MEDS ORDERED: Heparin 1000 units/ml 1ml Vial ONE (14:01)
[2018-11-16] MEDS ORDERED: Heparin 5000 units/ml inj ONE (14:01)
[2018-11-16] MEDS ORDERED: Bacitracin Oint 15gm Tube TOPIC ONE (14:01)
[2018-11-16] MEDS ORDERED: Bupivacaine 0.5% Inj 30 ml vial INJ ONE (14:02)
[2018-11-16] MEDS ORDERED: Gelfoam Size TOPIC ONE (14:02)
[2018-11-16] MEDS ORDERED: Thrombin 5000 units TOPIC ONE (14:02)
[2018-11-16] MEDS ORDERED: Bacitracin 50000 Units Vial ONE (14:02)
[2018-11-16] MEDS ORDERED: Lidocaine 1% Plain 30 ml INJ ONE (14:02)
[2018-11-16] MEDS ORDERED: LR 1000ml 1,000 ML IVLG SCH (16:16)
--- NOTE | 2018-11-16 16:17 | Anethesia Preoperative Eval ---
Anesthesia Pre-op PMH/ROS General Date of Evaluation: Nov 16, 2018 Time of Evaluation: 15:42 Anesthesiologist: Gonzales ASA Score: ASA 4 Mallampati Score Class I : Soft palate, uvula, fauces, pillars visible Class II: Soft palate, uvula, fauces visible Class III: Soft palate, base of uvula visible Class IV: Only hard plate visible Mallampati Classification: Class III Surgeon: Lee Diagnosis: CRI Surgical Procedure: A/V Fistula R Leg Anesthesia History: none Family History: no anesthesia problems Allergies: Coded Allergies: VANCOMYCIN (Verified Allergy, Unknown, unknown, 11/16/18) Medications: see eMAR Patient NPO?: Yes Past Medical History Cardiovascular: Reports: HTN, CAD, other - PVD Pulmonary: Reports: COPD - Tracheostomy, other - Ventlator Dependant Gastrointestinal/Genitourinary: Reports: CRI, ESRD Neurologic/Psychiatric: Reports: dementia - Seizures, CVA Endocrine: Reports: DM Hematology/Immune: Reports: anemia PSxH Narrative: R BKA, Cholecystectomy, Multiple A/V Shunts Anesthesia Pre-op Phys. Exam Physician Exam Last Vital Signs Date Time Temp Pulse Resp B/P (MAP) Pulse Ox O2 Delivery O2 Flow Rate FiO2 11/16/18 12:40 68 16 40 11/16/18 12:31 Mechanical Ventilator 11/16/18 11:40 97.4 123/84 98 Constitutional: NAD Neurologic: CN 2-12 intact Cardiovascular: RRR Respiratory: CTA Gastrointestinal: S/NT/ND Airway Exam Mallampati Score: Class III MO: limited ROM: limited Teeth: missing Anesthesia Pre-op A/P Labs Hematology Test 11/16/18 11:45 White Blood Count 7.2 K/UL (4.8-10.8) Red Blood Count 3.89 M/UL (4.20-5.40) L Hemoglobin 13.4 G/DL (12.0-16.0) Hematocrit 41.8 % (37.0-47.0) Mean Corpuscular Volume 107 FL (80-99) H Mean Corpuscular Hemoglobin 34.5 PG (27.0-31.0) H Mean Corpuscular Hemoglobin Concent 32.1 G/DL (32.0-36.0) Red Cell Distribution Width 19.0 % (11.6-14.8) H Platelet Count 109 K/UL (150-450) L Mean Platelet Volume 7.3 FL (6.5-10.1) Neutrophils (%) (Auto) 64.2 % (45.0-75.0) Lymphocytes (%) (Auto) 23.5 % (20.0-45.0) Monocytes (%) (Auto) 8.4 % (1.0-10.0) Eosinophils (%) (Auto) 2.5 % (0.0-3.0) Basophils (%) (Auto) 1.4 % (0.0-2.0) Coagulation Test 11/16/18 11:45 Prothrombin Time 10.4 SEC (9.30-11.50) Prothromb Time International Ratio 1.0 (0.9-1.1) Activated Partial Thromboplast Time 28 SEC (23-33) Chemistry Test 11/16/18 11:45 Sodium Level 135 MMOL/L (136-145) L Potassium Level 4.2 MMOL/L (3.5-5.1) Chloride Level 99 MMOL/L (98-107) Carbon Dioxide Level 20 MMOL/L (21-32) L Anion Gap 16 mmol/L (5-15) H Blood Urea Nitrogen 65 mg/dL (7-18) H Creatinine 4.9 MG/DL (0.55-1.30) H Estimat Glomerular Filtration Rate 9.3 mL/min (>60) Glucose Level 151 MG/DL (74-106) H Calcium Level 9.7 MG/DL (8.5-10.1) Pre-Antibiotics Dru Grams Ancef IV Given Within 1 Hr of Incision: Yes Time Given: 16:07 Antonio Rolon MD Nov 16, 2018 16:17
--- NOTE | 2018-11-16 16:22 | Diagnostic Imaging Report ---
APPROVED REPORT CPT Code: 01992 Present Symptoms Comments: Pre-Operative Hx of right leg below the knee amputation Exam is technically limited due to body habitus. Right GSV PROX: 0.60 cm Left GSV PROX: 1.0 cm GSV MID : 0.53 cm GSV MID: 0.38 cm GSV DIS: 0.40 cm GSV DIS: 0.43 cm GSV SOPHIE: 0.40 cm GSV KNEE 0.40 cm GSV BLK 0.42 cm BILATERAL: Imaging reveals a patent deep venous system bilaterally. There is no evidence of thrombus within the common femoral, superficial femoral, popliteal or tibial segments. The greater saphenous veins are within normal limits. Doppler indicates normal spontaneous flow within these segments. BILATERAL: Common femoral artery waveform analysis is within normal limits at rest. Color flow duplex sonography reveals patency of the superficial femoral, popliteal, and left tibial arteries, there is no evidence of stenosis or occlusion within these segments. Doppler waveform analysis is biphasic with low amplitude flow.
--- NOTE | 2018-11-16 16:28 | Pre-Procedure Note/Attestation ---
Pre-Procedure Note/Attestation Complete Prior to Procedure Planned Procedure: right Procedure Narrative: right, possible left leg dialysis shunt placement and dialysis catheter replacement Indications for Procedure Pre-Operative Diagnosis: ESRD Attestation I attest that I discussed the nature of the procedure; its benefits; risks and complications; and alternatives (and the risks and benefits of such alternatives ), prior to the procedure, with the patient (or the patient's legal client service representative). I attest that, if there was a reasonable possibility of needing a blood transfusion, the patient (or the patient's legal client service representative) was given the [facility] standardized written summary, pursuant to the Lucien Arkwright Blood Safety Act ([place] Health and Safety Code # 1645, as amended). I attest that I re-evaluated the patient just prior to the surgery and that there has been no change in the patient's H&P, except as documented below: Juanjo Howard MD Nov 16, 2018 16:28
[2018-11-16] MEDS ORDERED: Hydromorphone 0.5mg/0.5ml inj IVP PRN (16:30)
[2018-11-16] MEDS ORDERED: HYDROcodone/Acetamin 5/325 tab ORAL PRN (16:30)
[2018-11-16] MEDS ORDERED: oxyCODONE HCL/Acetaminophen 5/325mg ORAL PRN (16:30)
[2018-11-16] MEDS ORDERED: Ketorolac 30mg Inj IV PRN ×2 (16:30)
[2018-11-16] MEDS ORDERED: LORazepam Inj 2mg/ml 1ml IV PRN (16:30)
[2018-11-16] MEDS ORDERED: Meperidine 50mg/ml Inj(FOR RIGORS ONLY) IVP PRN (16:30)
[2018-11-16] MEDS ORDERED: DiphenhydrAMINE 50mg/ml Inj IVP PRN (16:30)
[2018-11-16] MEDS ORDERED: HYDROcodone/Acetamin 7.5/325 tab ORAL PRN (16:30)
[2018-11-16] MEDS ORDERED: Labetalol 5mg/ml 20ml vial IV PRN (16:30)
[2018-11-16] MEDS ORDERED: fentaNYL 100 mcg/2 mL IV PRN (16:30)
[2018-11-16] MEDS ORDERED: Metoclopramide 10mg/2ml Inj IVP PRN (16:30)
[2018-11-16] MEDS ORDERED: Midazolam 2mg/2ml Inj IVP PRN (16:30)
[2018-11-16] MEDS ORDERED: Atropine Sulfate 0.4mg/ml inj IVP PRN (16:30)
--- NOTE | 2018-11-16 16:40 | Immediate Post-Op Evaluation ---
Immediate Post-Op Evalulation Immediate Post-Op Evalulation Procedure: R Leg AV Fistula Placement Date of Evaluation: Nov 16, 2018 Time of Evaluation: 21:05 IV Fluids: 700 NS Blood Products: 0 Estimated Blood Loss: 100 Urinary Output: 0 Blood Pressure Systolic: 124 Blood Pressure Diastolic: 43 Pulse Rate: 71 Respiratory Rate: 20 - Mech Vent O2 Sat by Pulse Oximetry: 99 Pain Score (1-10): 2 Nausea: No Vomiting: No Complications 0 Patient Status: no response, patent, ventilated, none Hydration Status: adequate Dru GramS Ancef IV Given Within 1 Hr of Incision: Yes Time Given: 16:07 Antonio oRlon MD Nov 16, 2018 16:40
[2018-11-16] MEDS ORDERED: NS 500ML IVPB ONE (16:44)
[2018-11-16] MEDS ORDERED: fentaNYL 100 mcg/2 mL IV ONE ×2 (16:46→17:16)
[2018-11-16] MEDS ORDERED: Zemuron 50mg/5ml Inj IV ONE (18:27)
[2018-11-16] MEDS ORDERED: Heparin Sod 1000 units/ml 10ml ONE (19:02)
[2018-11-16] MEDS ORDERED: Protamine Sulfate Inj ONE (19:46)
--- NOTE | 2018-11-16 21:50 | NUR ---
NURSE NOTES: Patient was transferred from PACU via bed accompanied by 2 RNs and 2 RTs . Report received from Ceci Jay RN at bed side. Patient is S/P AV graph to right thigh area. Area is covered with dressing at this time. Patient is non verbal at this time. No S/Sx of pain is noted via FLACC scale. Patient is on vent with setting of AC 16, fi02 40%, TV 500, PEEp5. Spo02 is 97%. IV site noted to left FA 22g. Permacath and G-tube site noted. Paged Dr Nagy for admission order. Currently awaiting for call back. Patient;s bed is in low position. call light is within easy reach while in bed. Will continue to monitor.
--- NOTE | 2018-11-16 21:50 | NUR ---
RESPIRATORY NOTE: 2150 PT TRANSFERRED FROM O.R. WITH BAG AND MASK FIO2 100% TO ROOM 234. PT ON CURRENT VENT SETTINGS: AC 16 500 40% +5. PT SCOTT CURRENT VENT SETTINGS WELL. PORTEX 8 TRACH SECURE AND PATENT W/ TRACH TIE. TRACH CARE DONE. SX SMALL THICK WHITE SECRETIONS. NO RESP DISTRESS NOTED. VENT PLUGGED INTO RED OUTLET. ALARMS ON & AUDIBLE. AMBU BAG AND SPARE TRACH AT BEDSIDE. WILL CONTINUE MONITORING PT.
[2018-11-16] MEDS ORDERED: ceFAZolin sod 1 GM in D5W 55 ML IVP SCH (22:00)
[2018-11-16] MEDS: ceFAZolin sod 1 GM in D5W 55 ML IVP SCH (23:03)
[2018-11-17] VITALS: BP 121/61
[2018-11-17 04:00] VITALS: BP 137/74
--- NOTE | 2018-11-17 04:45 | Operative Note - Dictated ---
DATE OF OPERATION: 11/16/2018 PREOPERATIVE DIAGNOSES: 1. End-stage renal disease. 2. Thrombosed, on dialysis shunts. 3. Occluded bilateral subclavian veins. 4. Need for permanent dialysis access. POSTOPERATIVE DIAGNOSES: 1. End-stage renal disease. 2. Thrombosed, on dialysis shunts. 3. Occluded bilateral subclavian veins. 4. Need for permanent dialysis access. FINDINGS: Below. PROCEDURES: 1. Right greater saphenous vein transposition. 2. Arteriovenous fistula creation in the right lower extremity. SURGEON: Juanjo Howard M.D. ANESTHESIA: General. ANESTHESIOLOGIST: Antonio Rolon M.D. INDICATION: The patient has had multiple failed dialysis shunts due to central venous occlusion and dialyzes through a tunneled catheter, which has been in for a long period of time. The lower extremities were evaluated with a duplex scan and the right leg stump (status post right below-knee amputation) appears to be a suitable option for greater saphenous vein transposition and arteriovenous fistula creation. INTRAOPERATIVE FINDINGS: The popliteal artery was patent, but calcified. The greater saphenous vein was adequate for the transposition, which was performed as described below and there was a good thrill present in the AV fistula at the end of procedure. The distal right leg stump was warm. PROCEDURE IN DETAIL: With the patient in supine position and after induction of anesthesia, the right lower extremity was shaved, prepped, and draped in usual sterile fashion. Incision was made over the course of the greater saphenous vein from the groin all the way down to the stump of the leg beyond the knee and the vein was mobilized along this entire length after tributaries were ligated with silk ties and hemoclips. It was ligated distally and divided and flushed with heparinized saline and noted to be widely patent. Serial dilators were passed without significant resistance and the vein was therefore spatulated and brought through a curvilinear subcutaneous tunnel created with a tunneler out in the distal aspect of the incision through which the right popliteal artery was also exposed and encircled with vessel loops proximally and distally. A longitudinal arteriotomy was made after 5000 units of heparin was administered intravenously and allowed to . The end-to-side anastomosis between the popliteal artery and the transposed greater saphenous vein was then performed with a continuous suture of 6-0 Prolene. After removal of the vessels, excellent flow into the vein was noted and palpable thrill was present. After hemostasis was ensured, the wound was irrigated with antibiotic solution and closed with interrupted sutures of 2-0 and 3-0 Vicryl for the deep layers followed by skin damaris for skin closure. Antibiotic ointment and dressing were placed and the patient was transferred to PACU in stable condition. She tolerated the procedure well. At the conclusion of procedure, sponge, needle, and instrument counts were correct. ESTIMATED BLOOD LOSS: 50 mL. COMPLICATIONS: None. DRAINS: None. SPECIMEN: None. Juanjo Howard M.D. DR: RADHA JOB#: [id number] CC: Fred Salazar M.D. ; FAX#: [phone]
[2018-11-17 05:31] LABS: BASOPHILS % (AUTO) 0.8 % (0.0-2.0); EOSINOPHILS % (AUTO) 0.8 % (0.0-3.0); HEMATOCRIT 37.5 % (37.0-47.0); HEMOGLOBIN 12.2 G/DL (12.0-16.0); LYMPHOCYTES % (AUTO) 14.5 % (20.0-45.0); MEAN CORPUSCULAR VOLUME 107 FL (80-99); MONOCYTES % (AUTO) 8.5 % (1.0-10.0); NEUTROPHILS % (AUTO) 75.4 % (45.0-75.0); PLATELET COUNT 113 K/UL (150-450); RED CELL DISTRIBUTION WIDTH 18.8 % (11.6-14.8); WHITE BLOOD COUNT 10.3 K/UL (4.8-10.8)
[2018-11-17] MEDS: NovoLOG Insulin Flexpen SUBQ SCH ×3 (05:34→17:31)
[2018-11-17 05:51] LABS: ANION GAP 18 mmol/L (5-15); BLOOD UREA NITROGEN 72 mg/dL (7-18); CALCIUM 9.1 MG/DL (8.5-10.1); CARBON DIOXIDE 18 MMOL/L (21-32); CHLORIDE 100 MMOL/L (98-107); CREATININE 5.7 MG/DL (0.55-1.30); POTASSIUM 4.2 MMOL/L (3.5-5.1); SODIUM 136 MMOL/L (136-145)
--- NOTE | 2018-11-17 05:53 | NUR ---
NURSE NOTES: called [facility], spoke with joan. HD scheduled for today.
--- NOTE | 2018-11-17 07:30 | NUR ---
HAND-OFF: Report given to DAVID Salcedo.
--- NOTE | 2018-11-17 07:31 | NUR ---
NURSE NOTES: Received report from Backy/ RN. Pt is Awake, will continue to monitor.
[2018-11-17 08:00] VITALS: BP 125/82
--- NOTE | 2018-11-17 08:16 | History and Physical ---
History of Present Illness General Date patient seen: Nov 17, 2018 Present Illness HPI 53 y/o female with VDRF, ESRD, admitted post new av fistula creation. Pt. now doing well, planned hd today, on vent, arousable, tolerating tube feeds. Allergies: Coded Allergies: VANCOMYCIN (Verified Allergy, Unknown, unknown, 11/16/18) Medication History Scheduled Amlodipine Besylate (Norvasc), 5 MG GT DAILY, (Reported) Ascorbic Acid* (Ascorbic Acid*), 500 MG GT DAILY, (Reported) Calcium Carbonate (Oyster Shell Calcium), 500 MG GT BID, (Reported) Cholestyramine (with Sugar) (Questran Packet), 2 PACKET GT DAILY, (Reported) Cholestyramine (with Sugar) (Questran Packet), 4 GM ORAL DAILY, (Reported) Hydralazine Hcl* (Hydralazine Hcl*), 50 MG GT TID, (Reported) Insulin Glargine (Lantus), 30 UNITS SUBQ Q12HR, (Reported) Levetiracetam (Keppra), 1,000 MG GT DAILY, (Reported) Losartan Potassium* (Losartan Potassium*), 25 MG ORAL Q12HR, (Reported) Sevelamer Carbonate* (Renvela*), 800 MG GT THREE TIMES A DAY, (Reported) [nephro aid], 1 TAB GT DAILY, (Reported) [neutrophos], 1 PACKET GT DAILY, (Reported) [prostat sf], 30 ML GT BID, (Reported) Miscellaneous Medications Insulin Regular, Human (Humulin R), 0 SUBQ, (Reported) Discontinued Medications Insulin Detemir (Levemir Flexpen), 28 SUBQ Q12HR, (Reported) Discontinued Reason: Pt stopped taking med Insulin Detemir (Levemir Flexpen), 28 UNITS SUBQ BEDTIME Discontinued Reason: Pt stopped taking med [Vit D3], 50,000 INTLU GT QWEEK, (Reported) Discontinued Reason: Pt stopped taking med Patient History Limited by: medical condition Healthcare decision maker N Resuscitation status Full Code Advanced Directive on File Past Medical/Surgical History Past Medical/Surgical History: (1) ESRD (end stage renal disease) (2) Respirator mechanical failure (3) Dysphagia Review of Systems Respiratory: Reports: shortness of breath Cardiovascular: Denies: no symptoms, see HPI, chest pain, edema, palpitations, syncope, PND, other Gastrointestinal: Denies: no symptoms, see HPI, abdominal pain, constipation, diarrhea, nausea, vomiting, melena, hematemesis, other Skin: Denies: no symptoms, see HPI, rash, change in color, change in hair/nails , dryness, lesions, other Psychiatric: Denies: no symptoms, see HPI, prior hx, anxiety, depressed feelings, emotional problems, SI, HI, hallucinations, other Endocrine: Denies: no symptoms, see HPI, excessive sweating, flushing, intolerance to temperature, increased thirst, increased urine, unexplained weight loss, other Physical Exam General Appearance: no apparent distress, lethargic Lines, tubes and drains: dialysis access HEENT: normocephalic, atraumatic, anicteric, mucous membranes moist Neck: non-tender Respiratory/Chest: on vent, other Cardiovascular/Chest: normal rate Abdomen: normal bowel sounds, non tender, soft, feeding tube Skin Exam: normal pigmentation Neurologic: slurry tank tender II-XII grossly normal Last 24 Hour Vital Signs Date Time Temp Pulse Resp B/P (MAP) Pulse Ox O2 Delivery O2 Flow Rate FiO2 11/17/18 07:25 85 22 40 11/17/18 05:15 75 16 40 11/17/18 04:00 98.8 74 16 137/74 (95) 100 11/17/18 04:00 40.0 11/17/18 04:00 Mechanical Ventilator 11/17/18 03:41 75 11/17/18 03:20 73 16 40 11/17/18 01:40 70 16 40 11/17/18 00:00 Mechanical Ventilator 11/17/18 00:00 97.9 72 16 121/61 (81) 100 11/17/18 00:00 40.0 11/17/18 00:00 71 11/16/18 23:32 Mechanical Ventilator 11/16/18 23:11 75 16 40 11/16/18 21:55 98.8 71 16 146/74 (98) 100 11/16/18 21:50 70 16 40 11/16/18 21:45 97.8 70 17 133/60 100 Mechanical Ventilator 11/16/18 21:30 71 18 132/58 100 Mechanical Ventilator 11/16/18 21:15 70 17 117/54 98 Mechanical Ventilator 11/16/18 21:05 69 18 118/54 98 Mechanical Ventilator 11/16/18 21:00 71 17 112/56 98 Mechanical Ventilator 11/16/18 20:54 97.8 71 16 124/42 99 Mechanical Ventilator 11/16/18 20:53 71 20 99 11/16/18 12:40 68 16 40 11/16/18 12:31 Mechanical Ventilator 11/16/18 11:54 72 20 40 11/16/18 11:40 97.4 72 18 123/84 98 Room Air 11/16/18 09:55 71 Intake and Output 11/16/18 11/17/18 18:59 06:59 Intake Total 555 ml Balance 555 ml Intake Free Water 100 ml IV Total 255 ml Tube Feeding 200 ml Laboratory Tests Test 11/16/18 11:45 11/17/18 04:15 White Blood Count 7.2 K/UL (4.8-10.8) 10.3 K/UL (4.8-10.8) Red Blood Count 3.89 M/UL (4.20-5.40) L 3.50 M/UL (4.20-5.40) L Hemoglobin 13.4 G/DL (12.0-16.0) 12.2 G/DL (12.0-16.0) Hematocrit 41.8 % (37.0-47.0) 37.5 % (37.0-47.0) Mean Corpuscular Volume 107 FL (80-99) H 107 FL (80-99) H Mean Corpuscular Hemoglobin 34.5 PG (27.0-31.0) H 35.0 PG (27.0-31.0) H Mean Corpuscular Hemoglobin Concent 32.1 G/DL (32.0-36.0) 32.6 G/DL (32.0-36.0) Red Cell Distribution Width 19.0 % (11.6-14.8) H 18.8 % (11.6-14.8) H Platelet Count 109 K/UL (150-450) L 113 K/UL (150-450) L Mean Platelet Volume 7.3 FL (6.5-10.1) 7.9 FL (6.5-10.1) Neutrophils (%) (Auto) 64.2 % (45.0-75.0) 75.4 % (45.0-75.0) H Lymphocytes (%) (Auto) 23.5 % (20.0-45.0) 14.5 % (20.0-45.0) L Monocytes (%) (Auto) 8.4 % (1.0-10.0) 8.5 % (1.0-10.0) Eosinophils (%) (Auto) 2.5 % (0.0-3.0) 0.8 % (0.0-3.0) Basophils (%) (Auto) 1.4 % (0.0-2.0) 0.8 % (0.0-2.0) Prothrombin Time 10.4 SEC (9.30-11.50) Prothromb Time International Ratio 1.0 (0.9-1.1) Activated Partial Thromboplast Time 28 SEC (23-33) Sodium Level 135 MMOL/L (136-145) L 136 MMOL/L (136-145) Potassium Level 4.2 MMOL/L (3.5-5.1) 4.2 MMOL/L (3.5-5.1) Chloride Level 99 MMOL/L (98-107) 100 MMOL/L (98-107) Carbon Dioxide Level 20 MMOL/L (21-32) L 18 MMOL/L (21-32) L Anion Gap 16 mmol/L (5-15) H 18 mmol/L (5-15) H Blood Urea Nitrogen 65 mg/dL (7-18) H 72 mg/dL (7-18) H Creatinine 4.9 MG/DL (0.55-1.30) H 5.7 MG/DL (0.55-1.30) H Estimat Glomerular Filtration Rate 9.3 mL/min (>60) 7.8 mL/min (>60) Glucose Level 151 MG/DL (74-106) H 143 MG/DL (74-106) H Calcium Level 9.7 MG/DL (8.5-10.1) 9.1 MG/DL (8.5-10.1) Microbiology Date/Time Source Procedure Growth Status 11/17/18 01:15 Rectum Received Height (Feet): 5 Height (Inches): 3.00 Weight (Pounds): 220 Medications Current Medications Medications (Trade) Dose Ordered Sig/Dl Route PRN Reason Start Time Stop Time Status Last Admin Dose Admin Amlodipine Besylate (Norvasc) 5 mg DAILY GT 11/17/18 09:00 12/17/18 08:59 Cefazolin Sodium 1 gm/Dextrose 55 ml @ 110 mls/hr Q12HR IVP 11/16/18 22:00 11/23/18 21:59 11/16/18 23:03 Chlorhexidine Gluconate (Martine-Hex 2%) 1 applic DAILY@2000 TOPIC 11/17/18 20:00 12/17/18 19:59 Cholestyramine Resin (Questran) 4 gm DAILY ORAL 11/17/18 09:00 12/17/18 08:59 Dextrose (Dextrose 50%) 25 ml Q30M PRN IV Hypoglycemia 11/16/18 23:45 12/16/18 23:44 Dextrose (Dextrose 50%) 50 ml Q30M PRN IV Hypoglycemia 11/16/18 23:45 12/16/18 23:44 Hydralazine HCl (Apresoline) 50 mg TID GT 11/17/18 09:00 12/17/18 08:59 Insulin Aspart (NovoLOG) BEFORE MEALS AND HS SUBQ 11/17/18 06:30 12/17/18 06:29 11/17/18 05:34 Insulin Detemir (Levemir) 30 units 0900,2100 SUBQ 11/17/18 09:00 12/17/18 08:59 Levetiracetam (Keppra) 1,000 mg DAILY GT 11/17/18 09:00 12/17/18 08:59 Losartan Potassium (Cozaar) 25 mg Q12HR ORAL 11/17/18 09:00 12/17/18 08:59 Assessment/Plan Problem List: (1) HTN (hypertension) Assessment & Plan: - resumed meds, watch with volume removal ICD Codes: I10 - Essential (primary) hypertension SNOMED: 75215758 (2) Fistula ICD Codes: L98.8 - Other specified disorders of the skin and subcutaneous tissue SNOMED: 718773124 (3) Dysphagia Assessment & Plan: - on tube feeds ICD Codes: R13.10 - Dysphagia, unspecified SNOMED: 84306315, 688225363 (4) ESRD (end stage renal disease) Assessment & Plan: - plan hd today -access care -watch residual ICD Codes: N18.6 - End stage renal disease SNOMED: 27185610 (5) Respirator mechanical failure Assessment & Plan: - cont vent ICD Codes: J95.850 - Mechanical complication of respirator SNOMED: 66489727319717 Status: Miguelangel Madrid M.D. Nov 17, 2018 08:16
--- NOTE | 2018-11-17 08:21 | 48 Hour Post Anesthesia Eval ---
Post Anesthesia Evaluation Procedure: R Leg AV Fistula Placement Date of Evaluation: Nov 17, 2018 Time of Evaluation: 07:10 Blood Pressure Systolic: 137 0: 74 Pulse Rate: 75 Respiratory Rate: 16 Temperature (Fahrenheit): 98.8 O2 Sat by Pulse Oximetry: 100 Airway: other - trach in place, on nyhcanical ventilator=patient baseline Nausea: No Vomiting: No Pain Intensity: 0 Hydration Status: adequate Cardiopulmonary Status: at baseline Mental Status/LOC: patient returned to baseline Post-Anesthesia Complications: 0 Follow-up care needed: N/A - further care as per primary team Marta Guerra MD Nov 17, 2018 08:21
[2018-11-17] MEDS: HydrALAZINE 50mg tab GT SCH ×2 (08:44→14:18)
[2018-11-17] MEDS ORDERED: Losartan 25mg tab ORAL SCH (09:00)
[2018-11-17] MEDS ORDERED: Levemir Flexpen SUBQ SCH (09:00)
[2018-11-17] MEDS ORDERED: Cholestyramine 4gm Pkt ORAL SCH (09:00)
[2018-11-17] MEDS: ceFAZolin sod 1 GM in D5W 55 ML IVP SCH (09:38)
--- NOTE | 2018-11-17 09:48 | NUR ---
RD ASSESSMENT & RECOMMENDATIONS SEE CARE ACTIVITY FOR COMPLETE ASSESSMENT DAILY ESTIMATED NEEDS: Needs based on ESRD on HD, Critical care 63.8kg adj 22-30 kcals/kg 5762-2450 total kcals 1.2-2 g protein/kg 77-128 g total protein Fluid per MD, on HD NUTRITION DIAGNOSIS: 1) Increased kcal and protein needs r/t renal dysfunction as evidenced by pt w/ ESRD on HD 2) Swallowing difficulty r/r respiratory status as evidenced by pt is vent dep via trach, PEG dep. CURRENT TF: NEPRO @50ml/hr x18 hrs ENTERAL NUTRITION RECOMMENDATIONS: REC TF change to NEPRO@ 45ml/hr x20 hrs + Prosource x1 daily to provide 900ml, 1620 kcal, 73g + 11g prot, 654ml free H20 - REC TO LOWER NEPRO TO 45ML/ HR and INCREASE RUN TIME TO 20HRS per day - Add PROSOURCE 1 packet daily to better meet est prot needs - Flush per MD/ HOB over 30 degrees ADDITIONAL RECOMMENDATIONS: 1) Daily CALIBRATED BED SCALE WTS PER SNF: 222# (100.9kg) from 11/14/18 2) Monitor lytes daily 3) Add NEPHROVITE x1 daily
--- NOTE | 2018-11-17 10:23 | NUR ---
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 LEFT VS RIGHT LEG AV SHUNT SI:ESRD . LEFT VS RIGHT LEG AV SHUNT VS: BP 124/42, P 71, T 97.8, RR 16, SpO2 98 on VENT AC 16, TV 500, PEEP 5.0, FiO2 40% RBC 3.89, Na 135, BUN 65, CR 4.9 IS:HEPARIN SUBQ CEFAZOLIN SODIUM 55ml IVP D50 25ml IV NOVOLOG SUBQ LEVIMIR SUBQ COZAAR 25mg KEPPRA 1,000mg GT APRESOLINE 50mg GT QUESTRAN 4gm NORVASC 5mg GT ADMITTED TO SDU DC PLAN: RETURN TO [facility]
[2018-11-17 12:00] VITALS: BP 119/66
--- NOTE | 2018-11-17 12:12 | NUR ---
DISCHARGE PLANNED PT WILL DC TO [facility] ROOM [address] HALFWAY T- FOR NURSE TO NURSE REPORT AMBULANCE WAS PLACED ON WILL CALL
--- NOTE | 2018-11-17 12:40 | NUR ---
NURSE NOTES: started HD, used right chest per cath.
[2018-11-17 14:18] VITALS: BP 119/66
--- NOTE | 2018-11-17 15:49 | NUR ---
NURSE NOTES: HD done, 1000ml was out.
--- NOTE | 2018-11-17 18:05 | NUR ---
TRANSFER to [facility]: Patient transferred back to [facility], . Report given to Char/DAVID . Belongings sent with EMS. Pt is continue on Ventilator. Dressing will be changed till 11/18/18. New order endorsed.
[2018-11-17] MEDS ORDERED: NS 275ml ONE (18:10)
[2018-11-17] MEDS ORDERED: Sterile Water Irrig 1000ml IRRIG ONE (18:10)
[2018-11-17] MEDS ORDERED: Tubing IV Secondary IV ONE (18:10)
[2018-11-17] MEDS ORDERED: Dyna-Hex 2% Top Sol 2oz TOPIC SCH (20:00)
[2018-11-18] MEDS ORDERED: ceFAZolin sod 0.5 GM in D5W 55 ML IV SCH (09:00)
--- NOTE | 2018-11-20 10:57 | Discharge Summary ---
Discharge Summary Discharge Summary _ DATE OF ADMISSION: 11/16/2018 DATE OF DISCHARGE: 11/17/2018 DISCHARGED BY: Dr. Nagy REASON FOR ADMISSION: 53 years old female with end-stage renal disease, on dialysis, ventilator dependent respiratory failure, tracheostomy status, dysphagia, G-tube, seizure disorder ,COPD, right below-knee amputation ,admitted for thrombosed dialysis shunt and occluded bilateral subclavian veins. Patient required placement of permanent dialysis access. CONSULTANTS: Vascular surgery [facility] COURSE: Patient admitted to direct observational unit. Prior to procedure patient undergone noninvasive vascular mapping. Patient subsequently undergone on November 16, right greater saphenous vein transposition and creation of arteriovenous fistula in the right lower extremity. The course of recovery was uneventful. Ventilator support provided Tracheostomy care provided. Pulmonary toilet provided as needed. Strict aspiration precautions were maintained. G-tube feeding continued. Patient was able to tolerate tube feeding. Blood pressure was managed with calcium channel lasha and angiotensin receptor lasha, remained stable. Blood sugar was managed with long-acting insulin and sliding scale of short acting insulin used as needed. Seizure precaution maintained. Keppra continued. Supportive care provided. Pain management was addressed as needed. Bowel regimen instituted. Patient clinically stabilized and was ready for [facility] for [facility] of care. Due to rapid and unexpected improvement in patient condition, patient was discharged in 1 day. FINAL DIAGNOSES: Thrombosed shunts Occluded bilateral subclavian veins. s/p Right greater saphenous vein transposition and creation of arteriovenous fistula in the right lower extremity. End-stage renal disease, on hemodialysis Ventilator dependent respiratory failure Tracheostomy status Hypertension Dysphagia, G-tube DISCHARGE MEDICATIONS: See Medication Reconciliation list. DISCHARGE INSTRUCTIONS: Patient was discharged [facility] for [facility] of care. Follow-up with medical provider and spray drier at the facility. Follow-up with outpatient hemodialysis. I have been assigned to dictate discharge summary for this account. I was not involved in the patient's management. Matilda Najera NP Nov 20, 2018 10:57
== END 2018-11-17 18:11 | DRG 252 ==
LOC: SUR 11:33 → 2W 14:52
PROC: [UNRECOGNIZED PROCEDURE] (principal; 2018-11-16 13:30)
PROC: 041M09S Bypass Right Popliteal Artery to Lower Extremity Vein with Autologous Venous Tissue, Open Approach (ICD-10-PCS; principal; 2018-11-16 13:30)
PROC: 5A1945Z Respiratory Ventilation, 24-96 Consecutive Hours (ICD-10-PCS; principal; 2018-11-16 13:30)
DX: T82.868A Thrombosis due to vascular prosthetic devices, implants and grafts, initial encounter (principal); N18.6 End stage renal disease; I12.0 Hypertensive chronic kidney disease with stage 5 chronic kidney disease or end stage renal disease; I82.B13 Acute embolism and thrombosis of subclavian vein, bilateral; Z43.1 Encounter for attention to gastrostomy; J96.10 Chronic respiratory failure, unspecified whether with hypoxia or hypercapnia; Z99.11 Dependence on respirator [ventilator] status; Y83.8 Other surgical procedures as the cause of abnormal reaction of the patient, or of later complication, without mention of misadventure at the time of the procedure; Z99.2 Dependence on renal dialysis; R13.10 Dysphagia, unspecified; Z43.0 Encounter for attention to tracheostomy; Z88.1 Allergy status to other antibiotic agents
CPT/HCPCS: 36415; 80048; 80299; 82962; 85025; 85610; 85730; 87081; 93922; 94002; 94003; 94150; J1815; S5561

== ENCOUNTER 2019-02-08 06:13 | Inpatient (IN) | payer MEDICARE, OTHER ==
[~2019-02-08] VITALS: Ht 154.9 cm; Wt 111.6 kg
[2019-02-08] VITALS (8 sets, daily range): BP systolic 126–156; BP diastolic 42–85
[~2019-02-08 06:13] MED LIST changes: +LANTUS SOL100 UNIT/1 SUBQ
[2019-02-08] MEDS ORDERED: Midazolam 2mg/2ml Inj ONE (07:02)
[2019-02-08] MEDS ORDERED: fentaNYL 100 mcg/2 mL IV ONE (07:02)
[2019-02-08] MEDS ORDERED: Lidocaine 1% MPF 10mg/ml 5ml ONE (07:05)
[2019-02-08] MEDS ORDERED: Propofol 200mg/20ml IV ONE (07:05)
[2019-02-08] MEDS ORDERED: Lidocaine 1% Plain 30 ml INJ ONE (07:14)
[2019-02-08] MEDS ORDERED: Isovue-M 300 15ml INJ ONE (07:14)
[2019-02-08] MEDS ORDERED: Bacitracin 50000 Units Vial ONE (07:14)
[2019-02-08] MEDS ORDERED: Bupivacaine 0.5% Inj 30 ml vial INJ ONE (07:14)
[2019-02-08] MEDS ORDERED: Heparin 5000 units/ml inj ONE (07:14)
[2019-02-08] MEDS ORDERED: Bacitracin Oint 15gm Tube TOPIC ONE (07:14)
[2019-02-08] MEDS ORDERED: Heparin 1000 units/ml 1ml Vial ONE (07:14)
[2019-02-08 07:36] LABS: HEMATOCRIT 16.2 % (37.0-47.0); MEAN CORPUSCULAR VOLUME 89 FL (80-99); PLATELET COUNT 206 K/UL (150-450); RED BLOOD COUNT 1.81 M/UL (4.20-5.40); WHITE BLOOD COUNT 7.4 K/UL (4.8-10.8)
[2019-02-08 07:42] LABS: ANION GAP 10 mmol/L (5-15); BLOOD UREA NITROGEN 77 mg/dL (7-18); CALCIUM 9.3 MG/DL (8.5-10.1); CARBON DIOXIDE 25 MMOL/L (21-32); CHLORIDE 99 MMOL/L (98-107); CREATININE 4.4 MG/DL (0.55-1.30); POTASSIUM 3.7 MMOL/L (3.5-5.1); SODIUM 134 MMOL/L (136-145)
[2019-02-08 07:48] LABS: HEMOGLOBIN 5.6 G/DL (12.0-16.0)
[2019-02-08 07:52] LABS: INR 0.9 (0.9-1.1)
--- NOTE | 2019-02-08 08:15 | Pre-Procedure Note/Attestation ---
Pre-Procedure Note/Attestation Complete Prior to Procedure Planned Procedure: right Procedure Narrative: right thigh fistulogram, possible intervention Indications for Procedure Pre-Operative Diagnosis: AVF malfunction Attestation I attest that I discussed the nature of the procedure; its benefits; risks and complications; and alternatives (and the risks and benefits of such alternatives ), prior to the procedure, with the patient (or the patient's legal marketing sales representative). I attest that, if there was a reasonable possibility of needing a blood transfusion, the patient (or the patient's legal marketing sales representative) was given the [facility] standardized written summary, pursuant to the Lucien Monica Blood Safety Act ([place] Health and Safety Code # 1645, as amended). I attest that I re-evaluated the patient just prior to the surgery and that there has been no change in the patient's H&P, except as documented below: Juanjo Howard MD Feb 08, 2019 08:15
[2019-02-08] MEDS ORDERED: CHOLECALCIFEROL GT (08:33)
[2019-02-08] MEDS ORDERED: NOVOLOG100 UNITS1 (08:33)
[2019-02-08] MEDS ORDERED: COZAAR25 MG GT (08:33)
[2019-02-08] MEDS ORDERED: LEVEMIR FL100 UNIT/1 SUBQ (08:33)
[2019-02-08] MEDS ORDERED: ZINC SULFATE220 M1 GT (08:33)
[2019-02-08] MEDS ORDERED: LOVENOX10 M4 SUBQ (08:33)
[2019-02-08] MEDS ORDERED: FERROUS SULFAT325 MG GT (08:33)
--- NOTE | 2019-02-08 12:30 | NUR ---
Received pt on PB840 vent with settings of 14/500/35%/+5 no signs or symptoms of distress. Pt was taken to recovery in surgery area and made secure. Once set in recovery I suctioned pt -displaying a moderate amount of green, yellow, and white thick secretions. Will continue to monitor.
[2019-02-08] MEDS ORDERED: Sterile Water Irrig 1000ml IRRIG ONE (12:45)
[2019-02-08] MEDS ORDERED: NS Irrig 1000ml ONE (12:45)
[2019-02-08] MEDS ORDERED: Omnipaque-300 100ml vial INJ ONE ×2 (13:20→13:26)
--- NOTE | 2019-02-08 13:49 | Anethesia Preoperative Eval ---
Anesthesia Pre-op PMH/ROS General Date of Evaluation: Feb 08, 2019 Time of Evaluation: 10:05 Anesthesiologist: Yvonne ASA Score: ASA 4 Mallampati Score Class I : Soft palate, uvula, fauces, pillars visible Class II: Soft palate, uvula, fauces visible Class III: Soft palate, base of uvula visible Class IV: Only hard plate visible Mallampati Classification: Class III Surgeon: Lee Diagnosis: Malfunctioning A-V fistula Surgical Procedure: Revision of A-V fistula Anesthesia History: none Allergies: Coded Allergies: VANCOMYCIN (Verified Allergy, Unknown, unknown, 11/16/18) Medications: see eMAR Patient NPO?: Yes Past Medical History Cardiovascular: Reports: HTN; Denies: CAD, [place], valve dz, arrhythmia, other Pulmonary: Reports: KOURTNEY - Respiratory failure tracheostomy vent dependent, other; Denies: asthma, COPD Gastrointestinal/Genitourinary: Reports: GERD, ESRD - on HD, other - Dysphagia feeding tube in place; Denies: CRI Neurologic/Psychiatric: Reports: dementia, CVA; Denies: depression/anxiety, TIA, other Endocrine: Reports: DM - on insulin; Denies: hypothyroidism, steroids, other Hematology/Immune: Reports: anemia - of cronic d-s; Denies: DVT, bleeding disorder, other Musculoskeletal/Integumentary: Reports: DJD, edema; Denies: OA, RA, DDD, other Other: obesity PMH Narrative: as above PSxH Narrative: R bka skin grafts Anesthesia Pre-op Phys. Exam Physician Exam Last Vital Signs Date Time Temp Pulse Resp B/P (MAP) Pulse Ox O2 Delivery O2 Flow Rate FiO2 02/08/19 12:34 18 Mechanical Ventilator 45.0 35 02/08/19 07:40 97.2 76 137/51 93 Constitutional: NAD Neurologic: other - unable to obtaine Cardiovascular: RRR, no M/R/G Respiratory: other - diminished breath sounds Gastrointestinal: other - obesity huge ventral hernia Airway Exam Mallampati Score: Class III - tracheostomy in olace MO: limited ROM: limited Teeth: missing Dentures: no upper, no lower Anesthesia Pre-op A/P Labs Hematology Test 02/08/19 07:25 White Blood Count 7.4 K/UL (4.8-10.8) Red Blood Count 1.81 M/UL (4.20-5.40) L Hemoglobin 5.6 G/DL (12.0-16.0) *L Hematocrit 16.2 % (37.0-47.0) L Mean Corpuscular Volume 89 FL (80-99) Mean Corpuscular Hemoglobin 31.1 PG (27.0-31.0) H Mean Corpuscular Hemoglobin Concent 34.8 G/DL (32.0-36.0) Red Cell Distribution Width 13.0 % (11.6-14.8) Platelet Count 206 K/UL (150-450) Mean Platelet Volume 5.3 FL (6.5-10.1) L Neutrophils (%) (Auto) % (45.0-75.0) Lymphocytes (%) (Auto) % (20.0-45.0) Monocytes (%) (Auto) % (1.0-10.0) Eosinophils (%) (Auto) % (0.0-3.0) Basophils (%) (Auto) % (0.0-2.0) Differential Total Cells Counted 100 Neutrophils % (Manual) 70 % (45-75) Lymphocytes % (Manual) 17 % (20-45) L Monocytes % (Manual) 9 % (1-10) Eosinophils % (Manual) 3 % (0-3) Basophils % (Manual) 1 % (0-2) Band Neutrophils 0 % (0-8) Platelet Estimate Adequate Platelet Morphology Normal Hypochromasia 1+ Microcytosis 1+ Coagulation Test 02/08/19 07:25 Prothrombin Time 10.0 SEC (9.30-11.50) Prothromb Time International Ratio 0.9 (0.9-1.1) Activated Partial Thromboplast Time 30 SEC (23-33) Chemistry Test 02/08/19 07:25 Sodium Level 134 MMOL/L (136-145) L Potassium Level 3.7 MMOL/L (3.5-5.1) Chloride Level 99 MMOL/L (98-107) Carbon Dioxide Level 25 MMOL/L (21-32) Anion Gap 10 mmol/L (5-15) Blood Urea Nitrogen 77 mg/dL (7-18) H Creatinine 4.4 MG/DL (0.55-1.30) H Estimat Glomerular Filtration Rate 10.5 mL/min (>60) Glucose Level 162 MG/DL (74-106) H Calcium Level 9.3 MG/DL (8.5-10.1) Studies Pre-op Studies: EKG - SR Risk Assessment & Plan Assessment: ASA 4 Plan: GA trach. Status Change Before Surgery: No Pre-Antibiotics Drug: Ancef 1gr. Given Within 1 Hr of Incision: Yes Time Given: 13:12 Urbano Russell MD Feb 08, 2019 13:49
[2019-02-08] MEDS ORDERED: fentaNYL 100 mcg/2 mL IV PRN (14:00)
--- NOTE | 2019-02-08 14:16 | Brief Operative Note ---
Immediate Post Operative Note Operative Note Pre-op Diagnosis: AVF malfunction Procedure: right thigh fistulogram and ACCESSIBILITY LIFT TECHNICIAN Post-op Diagnosis: same as pre-op Findings: consistent w/pre-op dx studies Surgeon: Marito Howard Anesthesiologist: Annalee Russell Anesthesia: general Specimen: none Complications: none Condition: stable Fluids: see anesth. record Estimated Blood Loss: minimal Drains: none Implant(s) used?: No Juanjo Howard MD Feb 08, 2019 14:16
--- NOTE | 2019-02-08 14:27 | Immediate Post-Op Evaluation ---
Immediate Post-Op Evalulation Immediate Post-Op Evalulation Procedure: Revision of R femoral A-V fistula baloon angioplasty Date of Evaluation: Feb 08, 2019 Time of Evaluation: 14:26 IV Fluids: 200 Blood Products: 1 unit of PRBC Estimated Blood Loss: min Urinary Output: none Blood Pressure Systolic: 126 Blood Pressure Diastolic: 63 Pulse Rate: 64 Respiratory Rate: 16 O2 Sat by Pulse Oximetry: 99 Temperature (Fahrenheit): 97.6 Pain Score (1-10): 1 Nausea: No Vomiting: No Complications none Patient Status: no response, ventilated, none Hydration Status: adequate Urbano Russell MD Feb 08, 2019 14:27
--- NOTE | 2019-02-08 15:30 | NUR ---
NURSE NOTES: RECEIVED PT VIA GURNEY FROM ,ESCORTED BY [facility] ANIMAL ASSISTANT. RECEIVED 54 YRS OLD FEMALE ,NON-VERBAL TRACH TO VENT ,OBTUNDED .PT S/P RT THIGH FISTULOGRAM ,ANGIOPLASTY, DIALYSIS CATHETER PLACEMENT ANT LT CHEST PERMA-CATH DONE BY DR POLLARD. FULL BODY ASSESSMENT DONE. NO EVIDENCE OF PRESSURE ULCER NOTED ,ONLY SKIN TEAR ON RT BREAST AREA NOTED AND PICTURE TAKEN.PLACED A TELEPHONE CALL TO DR ELLER AND MADE AWARE AND NOTIFIED REGARDING NEW ADMISSION .NEW ADMITIONS ORDERS RECEIVE VIA PHONE BY DR ELLER.ALL NEW ORDERS NOTED AND CARRIED OUT.WILL CONT TO MONITOR.
[2019-02-08 18:47] LABS: MEAN CORPUSCULAR VOLUME 91 FL (80-99); PLATELET COUNT 192 K/UL (150-450); RED BLOOD COUNT 2.19 M/UL (4.20-5.40); RED CELL DISTRIBUTION WIDTH 12.1 % (11.6-14.8); WHITE BLOOD COUNT 7.3 K/UL (4.8-10.8)
[2019-02-08 18:57] LABS: ANION GAP 12 mmol/L (5-15); BLOOD UREA NITROGEN 81 mg/dL (7-18); CALCIUM 9.2 MG/DL (8.5-10.1); CARBON DIOXIDE 25 MMOL/L (21-32); CHLORIDE 96 MMOL/L (98-107); CREATININE 4.7 MG/DL (0.55-1.30); SODIUM 133 MMOL/L (136-145)
[2019-02-08 19:17] LABS: FERRITIN 1356 NG/ML (8-388)
--- NOTE | 2019-02-08 19:20 | NUR ---
HAND-OFF: Report given to .EMILI HERNANDEZ.
--- NOTE | 2019-02-08 19:40 | NUR ---
NURSE NOTES: Received patient from Ali RN, Patient is in bed with no signs of acute distress. On vent with a Portex size 8, AC 14, VT 500, Fio2 35%, and PEEP of 5. Patient is edematous +3 upper extremities bilaterally. Bed at its lowest position, call light in reach, and X3 bed rails are up. Will continue to monitor.
[2019-02-08 20:12] LABS: % IRON SATURATION 78 % (15-50); IRON 142 ug/dL (50-175); TOTAL IRON BINDING CAPACITY 183 ug/dL (250-450)
--- NOTE | 2019-02-08 20:55 | Consultation ---
Consult Note Consult Note I was asked by Dr Friedman to evaluate this patient for dialysis management Patient seen in room 236- Post op Low Hgb Obese Has left dialysis cath has right thigh fistula Trached Peg + Obese Nonverbal ! Assessment/Plan ESRD HTN DM Chronic Respiratory failure PEG+ Transfusion during dialysis and Ultrafiltration ordered adjust BP meds monitor H&H Per orders Nhan Cunha MD Feb 08, 2019 20:55
[2019-02-08] MEDS: Renvela 800mg Pkt GT SCH (21:24)
[2019-02-08] MEDS: Losartan 25mg tab ORAL SCH (21:26)
[2019-02-08] MEDS: NovoLOG Insulin Flexpen SUBQ SCH (21:30)
--- NOTE | 2019-02-09 03:00 | NUR ---
NURSE NOTES: Patient's blood sugar is 369 asymptomatic. Will hold D5W until order is clarified.
--- NOTE | 2019-02-09 05:30 | NUR ---
NURSE NOTES: MD called to confirm permacath placement. Dialysis will not start until placement is confirmed.
[2019-02-09] MEDS ORDERED: HydrALAZINE 50mg tab GT SCH ×2 (06:00→09:00)
[2019-02-09 06:22] LABS: HEMATOCRIT 20.1 % (37.0-47.0); MEAN CORPUSCULAR VOLUME 89 FL (80-99); PLATELET COUNT 188 K/UL (150-450); RED BLOOD COUNT 2.25 M/UL (4.20-5.40); WHITE BLOOD COUNT 6.9 K/UL (4.8-10.8)
[2019-02-09 06:28] LABS: HEMOGLOBIN 6.9 G/DL (12.0-16.0)
[2019-02-09] MEDS: NovoLOG Insulin Flexpen SUBQ SCH ×4 (06:44→23:05)
[2019-02-09 07:14] LABS: ALANINE AMINOTRANSFERASE 37 U/L (12-78); ALBUMIN 3.1 G/DL (3.4-5.0); ALBUMIN/GLOBULIN RATIO 0.6 (1.0-2.7); ALKALINE PHOSPHATASE 240 U/L (46-116); ANION GAP 11 mmol/L (5-15); ASPARTATE AMINO TRANSFERASE 23 U/L (15-37); BILIRUBIN,TOTAL 0.4 MG/DL (0.2-1.0); BLOOD UREA NITROGEN 82 mg/dL (7-18); CALCIUM 8.9 MG/DL (8.5-10.1); CARBON DIOXIDE 24 MMOL/L (21-32); CHLORIDE 97 MMOL/L (98-107); CHOLESTEROL 123 MG/DL (< 200); CREATININE 5.2 MG/DL (0.55-1.30); GAMMA GLUTAMYL TRANSPEPTIDASE 94 U/L (5-85); HDL CHOLESTEROL 38 MG/DL (40-60); PHOSPHORUS 3.4 MG/DL (2.5-4.9); POTASSIUM 3.9 MMOL/L (3.5-5.1); SODIUM 132 MMOL/L (136-145); TRIGLYCERIDES 179 MG/DL (30-150)
[2019-02-09 07:29] LABS: CREATINE KINASE 149 U/L (26-308)
[2019-02-09 08:00] VITALS: BP 93/41
--- NOTE | 2019-02-09 08:12 | NUR ---
NURSE NOTES: Report received from DAVID Caban. Observed patient in bed sleeping. Receiving dialysis at this time. On ventilator with previous setting and tolerated well with no acute distress noted. GT site intact and patent. IV site intact and patent. Bed in lowest position. Call light within reach. Will continue to monitor.
--- NOTE | 2019-02-09 08:25 | Diagnostic Imaging Report ---
Indication: Central line placement verification. Technique: XRAY Chest 1v Comparison: None Findings: Lung volumes are low. Dialysis catheter tip projects in the region of the lower SVC/cavoatrial junction. There is prominence of the pulmonary vascularity suggesting fluid overload/interstitial edema. There is a small left pleural effusion there are left basilar/retrocardiac opacities which may be related to subsegmental atelectasis. Infection is not excluded. No evidence of pneumothorax. There is a tracheostomy tube. Osseous structures demonstrate no acute normality. Impression: * Dialysis catheter tip projects in the region of the lower SVC/cavoatrial junction. * Cardiomegaly with findings suggestive of interstitial edema/fluid overload. * Or pleural effusion and left basilar opacities which may be related to compressive atelectasis. Imposed pneumonia to be excluded clinically. * Tracheostomy tube in place.
[2019-02-09] MEDS: Losartan 25mg tab ORAL SCH ×2 (09:00→20:46)
[2019-02-09] MEDS ORDERED: Ferrous Sulfate 300 MG/5 ML UDC GT SCH (09:00)
[2019-02-09] MEDS ORDERED: Tums 500mg GT SCH (09:00)
[2019-02-09] MEDS: Renvela 800mg Pkt GT SCH ×3 (09:45→17:20)
[2019-02-09] MEDS: Zinc Sulfate 220mg cap GT SCH (09:46)
[2019-02-09] MEDS: Ascorbic Acid 500mg tab GT SCH (09:46)
--- NOTE | 2019-02-09 10:13 | Nephrology Progress Note ---
Assessment/Plan Problem List: (1) ESRD (end stage renal disease) (2) Respirator mechanical failure (3) Complications, mechanical, catheter, dialysis (4) Anemia in CKD (chronic kidney disease) Assessment ESRD HTN DM Chronic Respiratory failure PEG+ dialysis access malfunction Plan Transfusion during dialysis and Ultrafiltration ordered adjust BP meds monitor H&H Per orders Subjective ROS Limited/Unobtainable: Yes Objective Objective Last 24 Hour Vital Signs Date Time Temp Pulse Resp B/P (MAP) Pulse Ox O2 Delivery O2 Flow Rate FiO2 02/09/19 09:08 78 20 35 02/09/19 09:00 93/41 02/09/19 09:00 74 93/41 02/09/19 08:00 Mechanical Ventilator 02/09/19 08:00 74 02/09/19 08:00 35 02/09/19 08:00 97.9 83 19 93/41 (58) 99 83 02/09/19 07:25 83 18 99 Mechanical Ventilator 35 02/09/19 07:25 83 23 35 02/09/19 06:42 122/45 02/09/19 05:04 76 25 35 02/09/19 04:00 35 02/09/19 04:00 Mechanical Ventilator 02/09/19 03:49 73 02/09/19 02:43 72 14 35 02/09/19 00:59 72 14 35 02/09/19 00:00 79 02/09/19 00:00 35 02/09/19 00:00 Mechanical Ventilator 02/08/19 23:35 79 02/08/19 23:18 78 15 35 02/08/19 21:26 122/45 02/08/19 21:06 79 18 35 02/08/19 20:22 76 19 35 02/08/19 20:21 74 19 100 Mechanical Ventilator 35 02/08/19 20:00 35 02/08/19 20:00 Mechanical Ventilator 02/08/19 19:28 73 02/08/19 17:07 76 18 35 02/08/19 17:05 Mechanical Ventilator 02/08/19 15:48 82 02/08/19 15:30 97.0 83 20 142/55 (84) 100 83 02/08/19 15:20 78 22 35 02/08/19 15:15 97.9 63 22 156/47 100 Mechanical Ventilator 35 02/08/19 15:15 35 02/08/19 15:00 62 16 145/55 100 Mechanical Ventilator 35 02/08/19 14:45 66 16 134/48 100 Mechanical Ventilator 35 02/08/19 14:35 67 15 128/45 100 Mechanical Ventilator 35 02/08/19 14:30 68 16 135/42 100 Mechanical Ventilator 35 02/08/19 14:27 64 16 99 02/08/19 14:25 35 02/08/19 14:25 97.8 64 16 126/85 100 Mechanical Ventilator 35 02/08/19 12:34 18 Mechanical Ventilator 45.0 35 02/08/19 12:33 18 35 Intake and Output 02/08/19 02/09/19 19:00 07:00 Intake Total 200 ml 67.76468 ml Output Total 20 ml Balance 180 ml 67.25647 ml IV Total 200 ml 17.92133 ml Other 50 ml Output Estimated Blood Loss 20 ml # Bowel Movements 1 Laboratory Tests 02/08/19 17:45: White Blood Count 7.3, Red Blood Count 2.19L, Hemoglobin 7.0L, Hematocrit 20.0L , Mean Corpuscular Volume 91, Mean Corpuscular Hemoglobin 31.8H, Mean Corpuscular Hemoglobin Concent 34.9, Red Cell Distribution Width 12.1, Platelet Count 192, Mean Platelet Volume 5.8L, Neutrophils (%) (Auto) , Lymphocytes (%) ( Auto) , Monocytes (%) (Auto) , Eosinophils (%) (Auto) , Basophils (%) (Auto) , Differential Total Cells Counted 100, Neutrophils % (Manual) 69, Lymphocytes % ( Manual) 16L, Monocytes % (Manual) 10, Eosinophils % (Manual) 4H, Basophils % ( Manual) 1, Band Neutrophils 0, Nucleated Red Blood Cells 1, Platelet Estimate Adequate, Platelet Morphology Normal, Red Blood Cell Morphology Normal, Sodium Level 133L, Potassium Level 4.0, Chloride Level 96L, Carbon Dioxide Level 25, Anion Gap 12, Blood Urea Nitrogen 81H, Creatinine 4.7H, Estimat Glomerular Filtration Rate 9.7, Glucose Level 185H, Calcium Level 9.2, Iron Level 142, Total Iron Binding Capacity 183L, Percent Iron Saturation 78H, Unsaturated Iron Binding 41L, Ferritin 1356H, Vitamin B12 Level > 2000H, Folate 66.7H 02/09/19 04:45: White Blood Count 6.9, Red Blood Count 2.25L, Hemoglobin 6.9*L, Hematocrit 20.1L , Mean Corpuscular Volume 89, Mean Corpuscular Hemoglobin 30.9, Mean Corpuscular Hemoglobin Concent 34.7, Red Cell Distribution Width 13.0, Platelet Count 188, Mean Platelet Volume 5.9L, Neutrophils (%) (Auto) , Lymphocytes (%) ( Auto) , Monocytes (%) (Auto) , Eosinophils (%) (Auto) , Basophils (%) (Auto) , Differential Total Cells Counted 100, Neutrophils % (Manual) 72, Lymphocytes % ( Manual) 16L, Monocytes % (Manual) 12H, Eosinophils % (Manual) 0, Basophils % ( Manual) 0, Band Neutrophils 0, Platelet Estimate Adequate, Platelet Morphology Normal, Sodium Level 132L, Potassium Level 3.9, Chloride Level 97L, Carbon Dioxide Level 24, Anion Gap 11, Blood Urea Nitrogen 82H, Creatinine 5.2H, Estimat Glomerular Filtration Rate 8.7, Glucose Level 166H, Calcium Level 8.9, Polychromasia 1+, Hypochromasia 1+, Hemoglobin A1c 6.6H, Uric Acid 4.4, Phosphorus Level 3.4, Magnesium Level 2.5H, Total Bilirubin 0.4, Gamma Glutamyl Transpeptidase 94H, Aspartate Amino Transf (AST/SGOT) 23, Alanine Aminotransferase (ALT/SGPT) 37, Alkaline Phosphatase 240H, Total Creatine Kinase 149, Troponin I 0.002, C-Reactive Protein, Quantitative 4.0H, Pro-B-Type Natriuretic Peptide 3577H, Total Protein 8.0, Albumin 3.1L, Globulin 4.9, Albumin/Globulin Ratio 0.6L, Triglycerides Level 179H, Cholesterol Level 123, LDL Cholesterol 66, HDL Cholesterol 38L, Cholesterol/HDL Ratio 3.2L, Thyroid Stimulating Hormone (TSH) 2.433, Hepatitis B Surface Antigen [Pending] Height (Feet): 5 Height (Inches): 1.00 Weight (Pounds): 250 General Appearance: other - non verbal Cardiovascular: normal rate Respiratory/Chest: decreased breath sounds Abdomen: distended, other - obese Nhan Cunha MD Feb 09, 2019 10:13
--- NOTE | 2019-02-09 11:46 | 48 Hour Post Anesthesia Eval ---
Post Anesthesia Evaluation Procedure: Revision of R femoral A-V fistula baloon angioplasty Date of Evaluation: Feb 09, 2019 Time of Evaluation: 11:42 Blood Pressure Systolic: 102 0: 52 Pulse Rate: 62 Respiratory Rate: 18 Temperature (Fahrenheit): 97.5 O2 Sat by Pulse Oximetry: 98 Airway: other - tracheostomy Nausea: No Vomiting: No Pain Intensity: 1 Hydration Status: adequate Cardiopulmonary Status: stable no pressors Mental Status/LOC: patient returned to baseline Follow-up Care/Observations: n/a Post-Anesthesia Complications: none Follow-up care needed: N/A Urbano Russell MD Feb 09, 2019 11:46
[2019-02-09 12:00] VITALS: BP 116/33
--- NOTE | 2019-02-09 12:09 | Cardiology Report ---
APPROVED REPORT EKG Measurement Heart [id number] Normal sinus rhythm Low voltage QRS Prolonged QT Abnormal ECG
[2019-02-09] MEDS ORDERED: Heparin1,000 units/500ml Premix(Conc:2 units/ml) IV PRN (12:30)
[2019-02-09] MEDS ORDERED: Lidocaine 1% Plain 30 ml INJ PRN (12:30)
--- NOTE | 2019-02-09 12:47 | History & Physical ---
History and Physical History & Physicial seen and examined. Full Dictation completed Sruthi Friedman MD Feb 09, 2019 12:47
--- NOTE | 2019-02-09 12:50 | General Progress Note ---
Assessment/Plan Assessment/Plan: Full Dictation in progress. 1- Mal function of Right Thigh AVF 2- Acute /chronic Anemia 3- Severe PVD Plan; ok to restart the PEG tube feeding Try to get a Peripheral access, PICC line HD per Dr Cunha Subjective Allergies: Coded Allergies: VANCOMYCIN (Verified Allergy, Unknown, unknown, 11/16/18) Objective Last 24 Hour Vital Signs Date Time Temp Pulse Resp B/P (MAP) Pulse Ox O2 Delivery O2 Flow Rate FiO2 02/09/19 12:00 Mechanical Ventilator 02/09/19 12:00 35 02/09/19 12:00 98.2 79 18 116/33 (60) 100 79 02/09/19 11:46 62 18 98 02/09/19 10:45 79 20 35 02/09/19 09:08 78 20 35 02/09/19 09:00 93/41 02/09/19 09:00 74 93/41 02/09/19 08:00 Mechanical Ventilator 02/09/19 08:00 74 02/09/19 08:00 35 02/09/19 08:00 97.9 83 19 93/41 (58) 99 83 02/09/19 07:25 83 18 99 Mechanical Ventilator 35 02/09/19 07:25 83 23 35 02/09/19 06:42 122/45 02/09/19 05:04 76 25 35 02/09/19 04:00 35 02/09/19 04:00 Mechanical Ventilator 02/09/19 03:49 73 02/09/19 02:43 72 14 35 02/09/19 00:59 72 14 35 02/09/19 00:00 79 02/09/19 00:00 35 02/09/19 00:00 Mechanical Ventilator 02/08/19 23:35 79 02/08/19 23:18 78 15 35 02/08/19 21:26 122/45 02/08/19 21:06 79 18 35 02/08/19 20:22 76 19 35 02/08/19 20:21 74 19 100 Mechanical Ventilator 35 02/08/19 20:00 35 02/08/19 20:00 Mechanical Ventilator 02/08/19 19:28 73 02/08/19 17:07 76 18 35 02/08/19 17:05 Mechanical Ventilator 02/08/19 15:48 82 02/08/19 15:30 97.0 83 20 142/55 (84) 100 83 02/08/19 15:20 78 22 35 02/08/19 15:15 97.9 63 22 156/47 100 Mechanical Ventilator 35 02/08/19 15:15 35 02/08/19 15:00 62 16 145/55 100 Mechanical Ventilator 35 02/08/19 14:45 66 16 134/48 100 Mechanical Ventilator 35 02/08/19 14:35 67 15 128/45 100 Mechanical Ventilator 35 02/08/19 14:30 68 16 135/42 100 Mechanical Ventilator 35 02/08/19 14:27 64 16 99 02/08/19 14:25 35 02/08/19 14:25 97.8 64 16 126/85 100 Mechanical Ventilator 35 Intake and Output 02/08/19 02/09/19 18:59 06:59 Intake Total 200 ml 67.67436 ml Output Total 20 ml Balance 180 ml 67.84298 ml IV Total 200 ml 17.79398 ml Other 50 ml Output Estimated Blood Loss 20 ml # Bowel Movements 1 Laboratory Tests 02/08/19 17:45: White Blood Count 7.3, Red Blood Count 2.19L, Hemoglobin 7.0L, Hematocrit 20.0L , Mean Corpuscular Volume 91, Mean Corpuscular Hemoglobin 31.8H, Mean Corpuscular Hemoglobin Concent 34.9, Red Cell Distribution Width 12.1, Platelet Count 192, Mean Platelet Volume 5.8L, Neutrophils (%) (Auto) , Lymphocytes (%) ( Auto) , Monocytes (%) (Auto) , Eosinophils (%) (Auto) , Basophils (%) (Auto) , Differential Total Cells Counted 100, Neutrophils % (Manual) 69, Lymphocytes % ( Manual) 16L, Monocytes % (Manual) 10, Eosinophils % (Manual) 4H, Basophils % ( Manual) 1, Band Neutrophils 0, Nucleated Red Blood Cells 1, Platelet Estimate Adequate, Platelet Morphology Normal, Red Blood Cell Morphology Normal, Sodium Level 133L, Potassium Level 4.0, Chloride Level 96L, Carbon Dioxide Level 25, Anion Gap 12, Blood Urea Nitrogen 81H, Creatinine 4.7H, Estimat Glomerular Filtration Rate 9.7, Glucose Level 185H, Calcium Level 9.2, Iron Level 142, Total Iron Binding Capacity 183L, Percent Iron Saturation 78H, Unsaturated Iron Binding 41L, Ferritin 1356H, Vitamin B12 Level > 2000H, Folate 66.7H 02/09/19 04:45: White Blood Count 6.9, Red Blood Count 2.25L, Hemoglobin 6.9*L, Hematocrit 20.1L , Mean Corpuscular Volume 89, Mean Corpuscular Hemoglobin 30.9, Mean Corpuscular Hemoglobin Concent 34.7, Red Cell Distribution Width 13.0, Platelet Count 188, Mean Platelet Volume 5.9L, Neutrophils (%) (Auto) , Lymphocytes (%) ( Auto) , Monocytes (%) (Auto) , Eosinophils (%) (Auto) , Basophils (%) (Auto) , Differential Total Cells Counted 100, Neutrophils % (Manual) 72, Lymphocytes % ( Manual) 16L, Monocytes % (Manual) 12H, Eosinophils % (Manual) 0, Basophils % ( Manual) 0, Band Neutrophils 0, Platelet Estimate Adequate, Platelet Morphology Normal, Sodium Level 132L, Potassium Level 3.9, Chloride Level 97L, Carbon Dioxide Level 24, Anion Gap 11, Blood Urea Nitrogen 82H, Creatinine 5.2H, Estimat Glomerular Filtration Rate 8.7, Glucose Level 166H, Calcium Level 8.9, Polychromasia 1+, Hypochromasia 1+, Hemoglobin A1c 6.6H, Uric Acid 4.4, Phosphorus Level 3.4, Magnesium Level 2.5H, Total Bilirubin 0.4, Gamma Glutamyl Transpeptidase 94H, Aspartate Amino Transf (AST/SGOT) 23, Alanine Aminotransferase (ALT/SGPT) 37, Alkaline Phosphatase 240H, Total Creatine Kinase 149, Troponin I 0.002, C-Reactive Protein, Quantitative 4.0H, Pro-B-Type Natriuretic Peptide 3577H, Total Protein 8.0, Albumin 3.1L, Globulin 4.9, Albumin/Globulin Ratio 0.6L, Triglycerides Level 179H, Cholesterol Level 123, LDL Cholesterol 66, HDL Cholesterol 38L, Cholesterol/HDL Ratio 3.2L, Thyroid Stimulating Hormone (TSH) 2.433, Hepatitis B Surface Antigen [Pending] Height (Feet): 5 Height (Inches): 1.00 Weight (Pounds): 250 Sruthi Friedman MD Feb 09, 2019 12:50
[2019-02-09] MEDS: HydrALAZINE 10mg Tab GT SCH ×2 (13:38→21:34)
--- NOTE | 2019-02-09 13:53 | NUR ---
RD ASSESSMENT & RECOMMENDATIONS SEE CARE ACTIVITY FOR COMPLETE ASSESSMENT DAILY ESTIMATED NEEDS: Needs based on ESRD on HD, Critical care 63.8kg adj 22-30 kcals/kg 6595-2974 total kcals 1.2-2 g protein/kg 77-128 g total protein Fluid per MD, on HD NUTRITION DIAGNOSIS: 1) Increased kcal and protein needs r/t renal dysfunction as evidenced by pt w/ ESRD on HD 2) Swallowing difficulty r/r respiratory status as evidenced by pt is vent dep via trach, PEG dep. CURRENT TF: NEPRO @60ml/hr x18 hrs ENTERAL NUTRITION RECOMMENDATIONS: REC TF change to NEPRO@ 45ml/hr x20 hrs + Prosource x1 daily to provide 900ml, 1620 kcal, 73g + 11g prot, 654ml free H20 - REC TO LOWER NEPRO TO 45ML/ HR and INCREASE RUN TIME TO 20HRS per day - Add PROSOURCE 1 packet daily to better meet est prot needs - Flush per MD/ HOB over 30 degrees ----- ADDITIONAL RECOMMENDATIONS: 1) Daily CALIBRATED BED SCALE WTS PER SNF: 222# (100.9kg) from 11/14/18 2) Monitor lytes daily 3) Add NEPHROVITE x1 daily
--- NOTE | 2019-02-09 14:01 | NUR ---
CASE MANAGEMENT: INITIAL REVIEW 54 YO F PRESENTED TO ED FROM HOME CC: AVF MALFUNCTION PMHx: SI:UTI. ESRD. T 97.2 HR 76 RR 18 B/P 137/51 SATS 93% ON MECH VENT FiO2 35% HGB 5.6 HCT 16.2 NA 133 CL 96 BUN 81 CR 4.7 GLU 185 IS:INSULIN ASPART SUBQ AC/HS NORVASC GT QD KEPPRA GT QD COZAAR PO Q12H HYDRALAZINE GT Q8H RENVELA GT TID PATIENT ADMITTED TO SDU 02/08/2019 @ 1005 DCP: PATIENT TO BE DISCHARGED TO HOME ONCE MEDICALLY CLEARED. PLAN OF CARE: Pre-op Diagnosis: AVF malfunction Procedure: right thigh fistulogram and HOSPITAL INSURANCE REPRESENTATIVE Post-op Diagnosis: same as pre-op 02/09/2019 SI:UTI. ESRD. T 98.2 HR 79 RR 18 B/P 116/33 SATS 100% ON MECH VENT FiO2 35 HGB 6.9 HCT 20.1 NA 132 CL 97 BUN 82 CR 5.2 GLU 166 HA1C 6.6 MG 2.5 GGT 94 ALP 240 BNP 3577 IS:INSULIN ASPART SUBQ AC/HS NORVASC GT QD KEPPRA GT QD COZAAR PO Q12H HYDRALAZINE GT Q8H RENVELA GT TID SDU DCP: PATIENT TO BE DISCHARGED TO HOME ONCE MEDICALLY CLEARED. PLAN OF CARE: START HD PER NEPHRO Addendum: 02/09/19 at 1424 by Peggy Dobson CM INTERQUAL MET
[2019-02-09 15:58] VITALS: BP 108/77
--- NOTE | 2019-02-09 16:24 | NUR ---
*-* NO INSURANCE INFORMATION IN THE BAR UNABLE TO SEND CLINICALS OR REVIEWS *-*
--- NOTE | 2019-02-09 16:41 | Diagnostic Imaging Report ---
Indication: End-stage renal disease. Dialysis access issues. Fluoroscopic imaging from procedure performed by vascular surgery. Technique: Fluoroscopic imaging performed by the vascular surgeon submitted to PACS. Total images/fluoroscopy runs submitted: 14 Total fluoroscopy time 147.4 seconds Fluoroscopy dose 67.74 mGy Findings: Fluoroscopic imaging from vascular procedure submitted for archival the PACS. Images demonstrate angioplasty of what appears to be a thigh loop AV access. There are atherosclerotic vascular calcifications. Note that the radiologist was not present for the procedure IMPRESSION: Fluoroscopic images from vascular surgery procedure. Please see operative report.
--- NOTE | 2019-02-09 19:10 | NUR ---
NURSE NOTES: Received report from Rozina RN, pt. in bed obtunded, no signs or symptoms of acute cardiac or respiratory distress noted, bed in lowest position and call light within easy reach, bed alarm on, side rails up x's3 and safety brakes engaged, pt. appears to be tolerating current vent settings well- ac 14, TV 500, fIO2 @35% AND PEEP 5, Nephro running via G tube at 45cc/hr- no residual noted, pt is clean and dry, comfort measures provided, pt. has Rt. upper chest IV 22G- IV intact and patent, pt. has new AV fistula to rt. thigh, pt. has left chest Perma cath for hemodialysis, safety measures continued, will continue with plan of care.
--- NOTE | 2019-02-09 19:13 | NUR ---
HAND-OFF: Report given to DAVID Angel. Stable condition.
[2019-02-09] MEDS ORDERED: CATAPRES0.1 MG ORAL (19:35)
[2019-02-09] MEDS ORDERED: NEPHROVITE1 TAB GT (19:35)
[2019-02-09 20:00] VITALS: BP 109/52
[2019-02-09] MEDS: Dyna-Hex 2% Top Sol 2oz TOPIC SCH (20:51)
--- NOTE | 2019-02-09 21:45 | History and Physical Report ---
DATE OF ADMISSION: 02/08/2019 SOURCE OF INFORMATION: and EMR. HISTORY OF PRESENT ILLNESS: The patient is a 54-year-old bed-bound misfortunate female. She is suffering from multiple comorbidities including, but not limited to diabetes and end-stage renal disease. The patient has been transferred regarding the malfunctioning of the hemodialysis access. I have been requested to see the patient for evaluation. At the time of evaluation, the patient is not verbally communicative. The patient is on trach and vent. Limited source of information. PAST MEDICAL HISTORY: Including but not limited to end-stage renal disease, interstitial disease, on hemodialysis, chronic anemia, and severe peripheral vascular disease. PAST SURGICAL HISTORY: Including but not limited to left upper chest wall PermCath placement and amputation of the right lower extremity. CURRENT HOSPITAL MEDICATIONS: Including, but not limited to amlodipine, hydralazine, Renagel, and losartan. SOCIAL HISTORY: The patient is residing in a detention facility. No documented prior history of smoking, tobacco use, or illicit drug abuse in the chart. PHYSICAL EXAMINATION: VITAL SIGNS: Blood pressure 140/50, temperature 98.2, pulse oximetry 98% on room air, pulse rate 70 to 80, and vent setting reviewed. HEAD AND NECK: Atraumatic and normocephalic. Trach in place. CHEST: Clear to auscultation. No wheezing. No crackles. HEART: S1, S2. Regular rate and rhythm. ABDOMEN: Soft. Morbidly obese. Limited evaluation. NEUROLOGY: The patient is delirious. Not verbally communicate. MUSCULOSKELETAL: Positive for right-sided AKA and left-sided mid tarsal amputation of the left foot. LABORATORY DATA: Labs dated 02/08/2019, WBC 7.4, hemoglobin 5.6, and platelets 200,000. Sodium 133, potassium 4, BUN 81, and creatinine 4.7. TSH 2.4. ASSESSMENT: 1. Malfunctions of the right thigh AV fistula. 2. End-stage renal disease, on hemodialysis, and temporary left upper chest wall PermCath access. 3. Acute on chronic anemia. 4. Diabetes type 2. 5. Hypertension. 6. Lack of capacity of making medical decisions. 7. GI and DVT prophylaxis. 8. Severe peripheral vascular disease and multiple segmental amputations of the lower extremity. PLAN OF CARE: Case discussed with the primary online publisher as well as the vascular surgeon. Covering online publisher, Dr. Cunha notified. Dear Dr. Gupta and Dr. Howard, thanks for giving me the opportunity to participate in your patient's care. I agree with the blood transfusion. Dr. Cunha notified. Sruthi Friedman M.D. DR: DIANA JOB#: [id number] CC:
[2019-02-10] VITALS (7 sets, daily range): BP systolic 108–150; BP diastolic 46–74
[2019-02-10] MEDS: HydrALAZINE 10mg Tab GT SCH ×4 (05:07→23:06)
[2019-02-10] MEDS: NovoLOG Insulin Flexpen SUBQ SCH ×4 (05:11→23:06)
[2019-02-10 06:23] LABS: HEMATOCRIT 22.2 % (37.0-47.0); HEMOGLOBIN 7.6 G/DL (12.0-16.0); MEAN CORPUSCULAR VOLUME 93 FL (80-99); PLATELET COUNT 178 K/UL (150-450); RED BLOOD COUNT 2.39 M/UL (4.20-5.40); RED CELL DISTRIBUTION WIDTH 12.7 % (11.6-14.8)
--- NOTE | 2019-02-10 07:03 | NUR ---
HAND-OFF: Report given to Leora Luna RN-pt. remains stable and no signs of distress noted- will f/u on abnormal labs and low HGB.
--- NOTE | 2019-02-10 07:05 | NUR ---
NURSE NOTES: Received bedside report from Jeanne HERNANDEZ. Pt. in bed, occasionally opens eyes. No sign of distress. On mech. vent. with setting of AC14/VT500/FiO2 of 35%/PEEP5. No grimacing noted. IV at right upper chest #22g. in placed S.L. And left perma cath in placed. Bed in low position, locked. Call light within reach. Will cont. to monitor.
[2019-02-10 07:21] LABS: ALANINE AMINOTRANSFERASE 27 U/L (12-78); ALBUMIN 3.2 G/DL (3.4-5.0); ALBUMIN/GLOBULIN RATIO 0.7 (1.0-2.7); ALKALINE PHOSPHATASE 230 U/L (46-116); ANION GAP 12 mmol/L (5-15); ASPARTATE AMINO TRANSFERASE 25 U/L (15-37); BILIRUBIN,TOTAL 0.4 MG/DL (0.2-1.0); BLOOD UREA NITROGEN 51 mg/dL (7-18); CALCIUM 8.9 MG/DL (8.5-10.1); CARBON DIOXIDE 26 MMOL/L (21-32); CHLORIDE 96 MMOL/L (98-107); CREATININE 4.2 MG/DL (0.55-1.30); PHOSPHORUS 2.3 MG/DL (2.5-4.9); POTASSIUM 3.4 MMOL/L (3.5-5.1); SODIUM 133 MMOL/L (136-145)
--- NOTE | 2019-02-10 08:25 | NUR ---
NURSE NOTES: Called and left a message to Dr. Friedman regarding pt. lab results H/H 7.6/22.2 ; K+ 3.4 and phos 2.3 level. Awaiting for response.
--- NOTE | 2019-02-10 08:40 | NUR ---
NURSE NOTES: Dr. Friedman called back and told RN to call Dr. Cunha and if cleared by him pt. vladimir d/c.
--- NOTE | 2019-02-10 08:50 | NUR ---
NURSE NOTES: Called Dr. Cunha and told RN he will be in to see pt. in few. Will cont. to monitor.
--- NOTE | 2019-02-10 09:10 | NUR ---
NURSE NOTES: Seen by Dr. Cunha and ordered 1PRBC transfuse today and possible d/c tomorrow.
[2019-02-10] MEDS: Renvela 800mg Pkt GT SCH (09:36)
[2019-02-10] MEDS: Losartan 25mg tab ORAL SCH ×2 (09:36→20:09)
[2019-02-10] MEDS: Zinc Sulfate 220mg cap GT SCH (09:36)
[2019-02-10] MEDS: Ascorbic Acid 500mg tab GT SCH (09:36)
--- NOTE | 2019-02-10 10:13 | Nephrology Progress Note ---
Assessment/Plan Problem List: (1) ESRD (end stage renal disease) (2) Respirator mechanical failure (3) Complications, mechanical, catheter, dialysis (4) Anemia in CKD (chronic kidney disease) Assessment ESRD HTN DM Chronic Respiratory failure PEG+ dialysis access malfunction Plan Transfusion one unit today check lab in am- DC in am if stable adjust BP meds Per orders Subjective ROS Limited/Unobtainable: Yes Objective Objective Last 24 Hour Vital Signs Date Time Temp Pulse Resp B/P (MAP) Pulse Ox O2 Delivery O2 Flow Rate FiO2 02/10/19 09:36 81 150/74 02/10/19 09:36 150/74 02/10/19 08:57 81 25 35 02/10/19 08:00 Mechanical Ventilator 02/10/19 08:00 35 02/10/19 08:00 98.8 78 18 150/74 (99) 100 78 02/10/19 07:30 80 02/10/19 06:48 80 15 35 02/10/19 05:07 106/64 02/10/19 04:50 97 14 35 02/10/19 04:00 Mechanical Ventilator 02/10/19 04:00 79 02/10/19 04:00 98.2 83 18 117/68 (84) 100 74 02/10/19 04:00 35 02/10/19 03:10 74 14 35 02/10/19 01:00 77 17 35 02/10/19 00:00 72 02/10/19 00:00 97.9 79 16 125/54 (77) 100 79 02/10/19 00:00 35 02/10/19 00:00 Mechanical Ventilator 02/09/19 23:30 92 22 35 02/09/19 21:34 108/54 02/09/19 21:30 70 18 35 02/09/19 20:46 109/52 02/09/19 20:00 72 02/09/19 20:00 98.2 72 16 109/52 (71) 100 72 02/09/19 20:00 Mechanical Ventilator 02/09/19 20:00 35 02/09/19 19:30 72 15 35 02/09/19 17:00 80 21 35 02/09/19 16:00 35 02/09/19 16:00 73 02/09/19 16:00 Mechanical Ventilator 02/09/19 15:58 98.4 79 16 108/77 (87) 100 79 02/09/19 15:29 76 20 35 02/09/19 13:38 107/33 02/09/19 12:50 72 20 35 02/09/19 12:00 78 02/09/19 12:00 Mechanical Ventilator 02/09/19 12:00 35 02/09/19 12:00 98.2 79 18 116/33 (60) 100 79 02/09/19 11:46 62 18 98 02/09/19 10:45 79 20 35 Intake and Output 02/09/19 02/10/19 19:00 07:00 Intake Total 460 ml 525 ml Balance 460 ml 525 ml Intake Free Water 90 ml 30 ml Tube Feeding 370 ml 495 ml Laboratory Tests 02/10/19 04:35: White Blood Count 6.0, Red Blood Count 2.39L, Hemoglobin 7.6L, Hematocrit 22.2L , Mean Corpuscular Volume 93, Mean Corpuscular Hemoglobin 31.9H, Mean Corpuscular Hemoglobin Concent 34.3, Red Cell Distribution Width 12.7, Platelet Count 178, Mean Platelet Volume 6.0L, Neutrophils (%) (Auto) , Lymphocytes (%) ( Auto) , Monocytes (%) (Auto) , Eosinophils (%) (Auto) , Basophils (%) (Auto) , Differential Total Cells Counted 100, Neutrophils % (Manual) 61, Lymphocytes % ( Manual) 26, Monocytes % (Manual) 11H, Eosinophils % (Manual) 1, Basophils % ( Manual) 1, Band Neutrophils 0, Nucleated Red Blood Cells , Platelet Estimate Adequate, Platelet Morphology Normal, Polychromasia 1+, Sodium Level 133L, Potassium Level 3.4L, Chloride Level 96L, Carbon Dioxide Level 26, Anion Gap 12 , Blood Urea Nitrogen 51H, Creatinine 4.2H, Estimat Glomerular Filtration Rate 11.1, Glucose Level 238H, Calcium Level 8.9, Phosphorus Level 2.3L, Magnesium Level 2.4, Total Bilirubin 0.4, Aspartate Amino Transf (AST/SGOT) 25, Alanine Aminotransferase (ALT/SGPT) 27, Alkaline Phosphatase 230H, C-Reactive Protein, Quantitative 4.7H, Pro-B-Type Natriuretic Peptide 3169H, Total Protein 7.9, Albumin 3.2L, Globulin 4.7, Albumin/Globulin Ratio 0.7L Height (Feet): 5 Height (Inches): 1.00 Weight (Pounds): 248 General Appearance: no apparent distress EENT: other - trach Cardiovascular: normal rate Respiratory/Chest: decreased breath sounds Abdomen: distended, other - PEG Nhan Cunha MD Feb 10, 2019 10:13
--- NOTE | 2019-02-10 11:00 | NUR ---
NURSE NOTES: Started 1PRBC on going. No a/r noted. Tolerating well. Will cont. to monitor.
--- NOTE | 2019-02-10 14:15 | NUR ---
NURSE NOTES: S/P 1PRBC. No a/r noted. Tolerated well. Will cont. to monitor.
[2019-02-10] MEDS ORDERED: Tubing Blood Filter IV ONE (15:40)
[2019-02-10] MEDS ORDERED: NS 275ml ONE (15:40)
--- NOTE | 2019-02-10 17:06 | Nephrology Progress Note ---
Assessment/Plan Assessment/Plan: 1. Malfunctions of the right thigh AV fistula. - permacath in place, per Vasc surgery 2. End-stage renal disease, on hemodialysis, and temporary left upper chest wall PermCath access. - last HD yesterday 3. Acute on chronic anemia- s/p 1 unit PRBC - DC in am if Hgb stable 4. Diabetes type 2.- monitor glucose level 5. Hypertension.- stable 6. Resp FL- trached on vent 7. GI and DVT prophylaxis. 8. Severe peripheral vascular disease and multiple segmental amputations of the lower extremity. - per Vasc surgery Subjective Date patient seen: Feb 10, 2019 Time patient seen: 17:02 ROS Limited/Unobtainable: Yes Allergies: Coded Allergies: VANCOMYCIN (Verified Allergy, Unknown, unknown, 11/16/18) Subjective Patient trached on the ventilator Objective Last 24 Hour Vital Signs Date Time Temp Pulse Resp B/P (MAP) Pulse Ox O2 Delivery O2 Flow Rate FiO2 02/10/19 16:00 Mechanical Ventilator 02/10/19 16:00 98.2 79 18 123/57 (79) 96 79 02/10/19 16:00 35 02/10/19 15:24 74 02/10/19 14:38 80 16 35 02/10/19 13:04 75 14 35 02/10/19 12:55 128/46 02/10/19 12:00 35 02/10/19 12:00 Mechanical Ventilator 02/10/19 12:00 98.2 78 18 128/46 (73) 100 78 02/10/19 11:49 75 02/10/19 11:29 82 15 35 02/10/19 09:36 81 150/74 02/10/19 09:36 150/74 02/10/19 08:57 81 25 35 02/10/19 08:00 Mechanical Ventilator 02/10/19 08:00 35 02/10/19 08:00 98.8 78 18 150/74 (99) 100 78 02/10/19 07:30 80 02/10/19 06:48 80 15 35 02/10/19 05:07 106/64 02/10/19 04:50 97 14 35 02/10/19 04:00 Mechanical Ventilator 02/10/19 04:00 79 02/10/19 04:00 98.2 83 18 117/68 (84) 100 74 02/10/19 04:00 35 02/10/19 03:10 74 14 35 02/10/19 01:00 77 17 35 02/10/19 00:00 72 02/10/19 00:00 97.9 79 16 125/54 (77) 100 79 02/10/19 00:00 35 02/10/19 00:00 Mechanical Ventilator 02/09/19 23:30 92 22 35 02/09/19 21:34 108/54 02/09/19 21:30 70 18 35 02/09/19 20:46 109/52 02/09/19 20:00 72 02/09/19 20:00 98.2 72 16 109/52 (71) 100 72 02/09/19 20:00 Mechanical Ventilator 02/09/19 20:00 35 02/09/19 19:30 72 15 35 Intake and Output 02/09/19 02/10/19 18:59 06:59 Intake Total 415 ml 570 ml Balance 415 ml 570 ml Intake Free Water 90 ml 30 ml IV Total 0 ml Tube Feeding 325 ml 540 ml Laboratory Tests 02/10/19 04:35: White Blood Count 6.0, Red Blood Count 2.39L, Hemoglobin 7.6L, Hematocrit 22.2L , Mean Corpuscular Volume 93, Mean Corpuscular Hemoglobin 31.9H, Mean Corpuscular Hemoglobin Concent 34.3, Red Cell Distribution Width 12.7, Platelet Count 178, Mean Platelet Volume 6.0L, Neutrophils (%) (Auto) , Lymphocytes (%) ( Auto) , Monocytes (%) (Auto) , Eosinophils (%) (Auto) , Basophils (%) (Auto) , Differential Total Cells Counted 100, Neutrophils % (Manual) 61, Lymphocytes % ( Manual) 26, Monocytes % (Manual) 11H, Eosinophils % (Manual) 1, Basophils % ( Manual) 1, Band Neutrophils 0, Nucleated Red Blood Cells , Platelet Estimate Adequate, Platelet Morphology Normal, Polychromasia 1+, Sodium Level 133L, Potassium Level 3.4L, Chloride Level 96L, Carbon Dioxide Level 26, Anion Gap 12 , Blood Urea Nitrogen 51H, Creatinine 4.2H, Estimat Glomerular Filtration Rate 11.1, Glucose Level 238H, Calcium Level 8.9, Phosphorus Level 2.3L, Magnesium Level 2.4, Total Bilirubin 0.4, Aspartate Amino Transf (AST/SGOT) 25, Alanine Aminotransferase (ALT/SGPT) 27, Alkaline Phosphatase 230H, C-Reactive Protein, Quantitative 4.7H, Pro-B-Type Natriuretic Peptide 3169H, Total Protein 7.9, Albumin 3.2L, Globulin 4.7, Albumin/Globulin Ratio 0.7L Height (Feet): 5 Height (Inches): 1.00 Weight (Pounds): 248 General Appearance: no apparent distress EENT: normal ENT inspection Neck: normal alignment, supple Cardiovascular: normal rate, regular rhythm Respiratory/Chest: rhonchi - bilaterally Abdomen: non tender, soft Edema: 1+ Arm (L), 1+ Arm (R), 1+ Leg (L), 1+ Leg (R), 1+ Pedal (L), 1+ Pedal ( R), 1+ Generalized Avery Ha MD Feb 10, 2019 17:06
--- NOTE | 2019-02-10 19:13 | NUR ---
HAND-OFF: Report given to Jeanne HERNANDEZ. Pt. remain stable.
--- NOTE | 2019-02-10 19:15 | NUR ---
NURSE NOTES: Received report from Leora HERNANDEZ, pt. in bed obtunded, no signs or symptoms of acute cardiac or respiratory distress noted, bed in lowest position and call light within easy reach, bed alarm on, side rails up x's3 and safety brakes engaged, side rails padded for seizure precautions- no seizure activity noted, pt. appears to be tolerating current vent settings well- ac 14, TV 500, fIO2 @35% AND PEEP 5, Nephro running via G tube at 45cc/hr- no residual noted, pt is clean and dry, comfort measures provided, pt. has Rt. upper chest IV 22G- IV intact and patent, pt. has new AV fistula to rt. thigh, pt. has left chest Perma cath for hemodialysis, safety measures continued, will continue with plan of care.
[2019-02-10] MEDS: Dyna-Hex 2% Top Sol 2oz TOPIC SCH (20:09)
[2019-02-11] VITALS (7 sets, daily range): BP systolic 100–144; BP diastolic 42–72
[2019-02-11] MEDS: HydrALAZINE 10mg Tab GT SCH ×4 (05:15→23:27)
[2019-02-11] MEDS: NovoLOG Insulin Flexpen SUBQ SCH ×4 (05:16→23:32)
--- NOTE | 2019-02-11 06:56 | NUR ---
HAND-OFF: Report given to Leora HERNANDEZ pt. remains stable and no signs of distress noted.
[2019-02-11 07:03] LABS: BASOPHILS % (AUTO) 1.4 % (0.0-2.0); HEMOGLOBIN 8.7 G/DL (12.0-16.0); LYMPHOCYTES % (AUTO) 19.9 % (20.0-45.0); MEAN CORPUSCULAR VOLUME 92 FL (80-99); NEUTROPHILS % (AUTO) 61.7 % (45.0-75.0); PLATELET COUNT 156 K/UL (150-450); RED CELL DISTRIBUTION WIDTH 12.7 % (11.6-14.8)
--- NOTE | 2019-02-11 07:05 | NUR ---
NURSE NOTES: Received update bedside report from Jeanne HERNANDEZ. Pt. in bed, occasionally opens eyes. No sign of distress[facility] with setting of AC14/VT500/FiO2 of 35%/PEEP5. No grimacing noted. IV at right FA #[id number]. in placed S.L. And left perma cath in placed. Bed in low position, locked. Call light within reach. Will cont. to monitor. Addendum: 02/11/19 at 0720 by BRO PAVON RN RN IV right FA #[id number]. in placed.
--- NOTE | 2019-02-11 07:05 | NUR ---
RESPIRATORY NOTE: Patient received mechanically ventilated on PB 840 with current ordered vent settings. Patient has trach size 8.0 Portex cuffed that is secured with trach tie and guard. Vent alarms are functional and audible. There is an ambu bag available at the bedside and the vent is connected to a red outlet. Will continue to monitor.
[2019-02-11 07:25] LABS: ALANINE AMINOTRANSFERASE 20 U/L (12-78); ALBUMIN 3.2 G/DL (3.4-5.0); ALBUMIN/GLOBULIN RATIO 0.7 (1.0-2.7); ALKALINE PHOSPHATASE 222 U/L (46-116); ANION GAP 12 mmol/L (5-15); ASPARTATE AMINO TRANSFERASE 22 U/L (15-37); BILIRUBIN,TOTAL 0.4 MG/DL (0.2-1.0); BLOOD UREA NITROGEN 62 mg/dL (7-18); CALCIUM 9.2 MG/DL (8.5-10.1); CARBON DIOXIDE 26 MMOL/L (21-32); CHLORIDE 97 MMOL/L (98-107); CREATININE 5.5 MG/DL (0.55-1.30); PHOSPHORUS 3.3 MG/DL (2.5-4.9); POTASSIUM 3.5 MMOL/L (3.5-5.1); SODIUM 135 MMOL/L (136-145)
[2019-02-11] MEDS: Ascorbic Acid 500mg tab GT SCH (08:48)
[2019-02-11] MEDS: Losartan 25mg tab ORAL SCH ×2 (08:49→20:24)
[2019-02-11] MEDS: Zinc Sulfate 220mg cap GT SCH (08:49)
--- NOTE | 2019-02-11 10:19 | General Progress Note ---
Assessment/Plan Assessment/Plan: S: Not verbal O: Vent setting reviwed. Seems comfortable. PHYSICAL EXAMINATION:HEAD AND NECK: Atraumatic and normocephalic. Trach in place. CHEST: Clear to auscultation. No wheezing. No crackles.HEART: S1, S2. Regular rate and rhythm. ABDOMEN: Soft. Morbidly obese. Limited evaluation.NEUROLOGY: The patient is delirious. Not verbally communicate. MUSCULOSKELETAL: Positive for right-sided AKA and left-sided mid tarsal amputation of the left foot. LABORATORY DATA: Labs dated 02/10/2019, Meds: reviewed and reconciled ASSESSMENT: 1. Malfunctions of the right thigh AV fistula. 2. End-stage renal disease, on hemodialysis, and temporary left upper chest wall PermCath access. 3. Acute on chronic anemia. 4. Diabetes type 2. 5. Hypertension. 6. Lack of capacity of making medical decisions. 7. GI and DVT prophylaxis. 8. Severe peripheral vascular disease and multiple segmental amputations of the lower extremity. Plan; Tolerating the PEG tube feeding Post B- Transfusion and correction of Hgb Will monitor electrolyte. Ok to DC to facility post HD Subjective Allergies: Coded Allergies: VANCOMYCIN (Verified Allergy, Unknown, unknown, 11/16/18) Objective Last 24 Hour Vital Signs Date Time Temp Pulse Resp B/P (MAP) Pulse Ox O2 Delivery O2 Flow Rate FiO2 02/11/19 08:53 78 14 35 02/11/19 08:49 77 134/47 02/11/19 08:49 134/47 02/11/19 08:00 Mechanical Ventilator 02/11/19 08:00 98.1 77 20 134/47 (76) 99 77 02/11/19 08:00 35 02/11/19 07:42 77 02/11/19 06:56 74 14 35 02/11/19 05:24 76 18 35 02/11/19 05:15 139/52 02/11/19 05:09 77 139/52 (81) 77 02/11/19 04:00 67 02/11/19 04:00 97.8 78 18 119/72 (88) 99 78 02/11/19 04:00 Mechanical Ventilator 02/11/19 04:00 35 02/11/19 03:11 72 24 35 02/11/19 01:30 70 14 35 02/11/19 00:00 75 02/11/19 00:00 Mechanical Ventilator 02/11/19 00:00 35 02/11/19 00:00 98.0 75 16 112/69 (83) 99 75 02/10/19 23:07 68 108/65 (79) 02/10/19 23:06 108/65 02/10/19 22:36 68 14 35 02/10/19 20:56 67 14 35 02/10/19 20:09 134/49 02/10/19 20:00 35 02/10/19 20:00 98.2 71 18 134/49 (77) 98 71 02/10/19 20:00 Mechanical Ventilator 02/10/19 20:00 77 02/10/19 19:11 74 16 35 02/10/19 18:21 72 123/57 02/10/19 18:21 123/57 02/10/19 16:55 72 14 35 02/10/19 16:00 Mechanical Ventilator 02/10/19 16:00 98.2 79 18 123/57 (79) 96 79 02/10/19 16:00 35 02/10/19 15:24 74 02/10/19 14:38 80 16 35 02/10/19 13:04 75 14 35 02/10/19 12:55 128/46 02/10/19 12:00 35 02/10/19 12:00 Mechanical Ventilator 02/10/19 12:00 98.2 78 18 128/46 (73) 100 78 02/10/19 11:49 75 02/10/19 11:29 82 15 35 Intake and Output 02/10/19 02/11/19 19:00 07:00 Intake Total 630 ml 525 ml Balance 630 ml 525 ml Intake Free Water 90 ml 30 ml Tube Feeding 540 ml 495 ml Laboratory Tests 02/11/19 05:10: White Blood Count 6.0, Red Blood Count 2.70L, Hemoglobin 8.7L, Hematocrit 25.0L , Mean Corpuscular Volume 92, Mean Corpuscular Hemoglobin 32.1H, Mean Corpuscular Hemoglobin Concent 34.7, Red Cell Distribution Width 12.7, Platelet Count 156, Mean Platelet Volume 6.2L, Neutrophils (%) (Auto) 61.7, Lymphocytes ( %) (Auto) 19.9L, Monocytes (%) (Auto) 14.0H, Eosinophils (%) (Auto) 3.0, Basophils (%) (Auto) 1.4, Sodium Level 135L, Potassium Level 3.5, Chloride Level 97L, Carbon Dioxide Level 26, Anion Gap 12, Blood Urea Nitrogen 62H, Creatinine 5.5H, Estimat Glomerular Filtration Rate 8.1, Glucose Level 243H, Calcium Level 9.2, Phosphorus Level 3.3, Magnesium Level 2.7H, Total Bilirubin 0.4, Aspartate Amino Transf (AST/SGOT) 22, Alanine Aminotransferase (ALT/SGPT) 20, Alkaline Phosphatase 222H, Total Protein 7.8, Albumin 3.2L, Globulin 4.6, Albumin/Globulin Ratio 0.7L Height (Feet): 5 Height (Inches): 1.00 Weight (Pounds): 247 Sruthi Friedman MD Feb 11, 2019 10:19
--- NOTE | 2019-02-11 15:00 | NUR ---
NURSE NOTES: Pt. with on going HD. Tolerating procedure.
--- NOTE | 2019-02-11 15:12 | Nephrology Progress Note ---
Assessment/Plan Problem List: (1) ESRD (end stage renal disease) (2) Respirator mechanical failure (3) Complications, mechanical, catheter, dialysis (4) Anemia in CKD (chronic kidney disease) Assessment ESRD HTN DM Chronic Respiratory failure PEG+ dialysis access malfunction Plan Transfusion one unit 02/10 HD today 02/11 DC in am if stable adjust BP meds Per orders Subjective ROS Limited/Unobtainable: Yes Objective Objective Last 24 Hour Vital Signs Date Time Temp Pulse Resp B/P (MAP) Pulse Ox O2 Delivery O2 Flow Rate FiO2 02/11/19 12:54 74 15 35 02/11/19 12:11 144/54 02/11/19 12:00 35 02/11/19 12:00 98.2 89 21 144/54 (84) 98 89 02/11/19 12:00 Mechanical Ventilator 02/11/19 11:40 76 02/11/19 10:54 69 14 35 02/11/19 08:53 78 14 35 02/11/19 08:49 77 134/47 02/11/19 08:49 134/47 02/11/19 08:00 Mechanical Ventilator 02/11/19 08:00 98.1 77 20 134/47 (76) 99 77 02/11/19 08:00 35 02/11/19 07:42 77 02/11/19 06:56 74 14 35 02/11/19 05:24 76 18 35 02/11/19 05:15 139/52 02/11/19 05:09 77 139/52 (81) 77 02/11/19 04:00 67 02/11/19 04:00 97.8 78 18 119/72 (88) 99 78 02/11/19 04:00 Mechanical Ventilator 02/11/19 04:00 35 02/11/19 03:11 72 24 35 02/11/19 01:30 70 14 35 02/11/19 00:00 75 02/11/19 00:00 Mechanical Ventilator 02/11/19 00:00 35 02/11/19 00:00 98.0 75 16 112/69 (83) 99 75 02/10/19 23:07 68 108/65 (79) 02/10/19 23:06 108/65 02/10/19 22:36 68 14 35 02/10/19 20:56 67 14 35 02/10/19 20:09 134/49 6/29/19 20:00 35 02/10/19 20:00 98.2 71 18 134/49 (77) 98 71 02/10/19 20:00 Mechanical Ventilator 02/10/19 20:00 77 02/10/19 19:11 74 16 35 02/10/19 18:21 72 123/57 02/10/19 18:21 123/57 02/10/19 16:55 72 14 35 02/10/19 16:00 Mechanical Ventilator 02/10/19 16:00 98.2 79 18 123/57 (79) 96 79 02/10/19 16:00 35 02/10/19 15:24 74 Intake and Output 02/10/19 02/11/19 19:00 07:00 Intake Total 630 ml 525 ml Balance 630 ml 525 ml Intake Free Water 90 ml 30 ml Tube Feeding 540 ml 495 ml Laboratory Tests 02/11/19 05:10: White Blood Count 6.0, Red Blood Count 2.70L, Hemoglobin 8.7L, Hematocrit 25.0L , Mean Corpuscular Volume 92, Mean Corpuscular Hemoglobin 32.1H, Mean Corpuscular Hemoglobin Concent 34.7, Red Cell Distribution Width 12.7, Platelet Count 156, Mean Platelet Volume 6.2L, Neutrophils (%) (Auto) 61.7, Lymphocytes ( %) (Auto) 19.9L, Monocytes (%) (Auto) 14.0H, Eosinophils (%) (Auto) 3.0, Basophils (%) (Auto) 1.4, Sodium Level 135L, Potassium Level 3.5, Chloride Level 97L, Carbon Dioxide Level 26, Anion Gap 12, Blood Urea Nitrogen 62H, Creatinine 5.5H, Estimat Glomerular Filtration Rate 8.1, Glucose Level 243H, Calcium Level 9.2, Phosphorus Level 3.3, Magnesium Level 2.7H, Total Bilirubin 0.4, Aspartate Amino Transf (AST/SGOT) 22, Alanine Aminotransferase (ALT/SGPT) 20, Alkaline Phosphatase 222H, Total Protein 7.8, Albumin 3.2L, Globulin 4.6, Albumin/Globulin Ratio 0.7L Height (Feet): 5 Height (Inches): 1.00 Weight (Pounds): 247 EENT: other - trach Cardiovascular: normal rate Respiratory/Chest: decreased breath sounds Abdomen: distended Fouladian,Nhan MD Feb 11, 2019 15:12
--- NOTE | 2019-02-11 17:00 | NUR ---
NURSE NOTES: S/P HD 3L out. Tolerated well. Left upper chest perm cath no s/sx of bleeding at the site.
--- NOTE | 2019-02-11 19:11 | NUR ---
HAND-OFF: Report given to Stefano HERNANDEZ. Pt. remain stable.
--- NOTE | 2019-02-11 19:18 | NUR ---
NURSE NOTES: Received report from DAVID Vela. Patient opens eyes, no eye contacts and obtunded. O2Sat 99% with Portex #8 and vent setting AC 14, TV 500, FiO2 35%, and peep 5. Gtube intact and running with Nepro 45ml/hr. Right forearm 20G IV intact and clean. No acute distress/SOB noted. RT is at the bedside. Call light placed in easy reach. Will continue plan of care.
[2019-02-11] MEDS: Dyna-Hex 2% Top Sol 2oz TOPIC SCH (20:24)
--- NOTE | 2019-02-11 21:16 | Consultation ---
History of Present Illness Present Illness Allergies: Coded Allergies: VANCOMYCIN (Verified Allergy, Unknown, unknown, 11/16/18) Medication History Scheduled Amlodipine Besylate (Norvasc), 5 MG GT DAILY, (Reported) Ascorbic Acid* (Ascorbic Acid*), 500 MG GT DAILY, (Reported) Calcium Carbonate (Oyster Shell Calcium), 500 MG GT DAILY, (Reported) Cholestyramine (with Sugar) (Questran Packet), 4 GM GT DAILY, (Reported) Enoxaparin* (Lovenox*), 40 MG SUBQ DAILY, (Reported) Ferrous Sulfate* (Ferrous Sulfate*), 330 MG GT DAILY, (Reported) Hydralazine Hcl* (Hydralazine Hcl*), 50 MG GT TID, (Reported) Insulin Detemir (Levemir Flexpen), 30 SUBQ Q12, (Reported) Insulin Glargine (Lantus), 30 UNITS SUBQ Q12HR, (Reported) Levetiracetam (Keppra), 1,000 MG GT DAILY, (Reported) Losartan Potassium* (Cozaar*), 25 MG GT DAILY, (Reported) Vitamin B Cmplx/Vit C/Folic AC (Nephro-Kitty Tablet), 1 TAB GT DAILY, (Reported) Zinc Sulfate (Zinc Sulfate*), 220 MG GT DAILY, (Reported) [Vuitamin D3], 500 GT EVERY OTH, (Reported) [nephro aid], 1 TAB GT DAILY, (Reported) [neutrophos], 1 PACKET GT DAILY, (Reported) [prostat sf], 30 ML GT BID, (Reported) Scheduled PRN Clonidine Hcl* (Catapres*), 0.1 MG ORAL EVERY 6 HOURS PRN for For High Blood Pressure, (Reported) Miscellaneous Medications Insulin Aspart (Novolog Flexpen), (Reported) Discontinued Medications Losartan Potassium* (Losartan Potassium*), 25 MG ORAL Q12HR, (Reported) Discontinued Reason: Therapy completed Sevelamer Carbonate* (Renvela*), 800 MG GT THREE TIMES A DAY, (Reported) Discontinued Reason: Therapy completed Patient History Healthcare decision maker N Resuscitation status Full Code Advanced Directive on File Yes Physical Exam Last 24 Hour Vital Signs Date Time Temp Pulse Resp B/P (MAP) Pulse Ox O2 Delivery O2 Flow Rate FiO2 02/11/19 20:24 124/42 02/11/19 20:00 97.9 79 20 124/42 (69) 99 69 02/11/19 19:04 84 15 35 02/11/19 17:56 68 100/46 02/11/19 17:56 100/46 02/11/19 16:55 68 17 35 02/11/19 16:00 Mechanical Ventilator 02/11/19 16:00 98.2 69 21 100/46 (64) 99 69 02/11/19 16:00 35 02/11/19 15:10 67 02/11/19 14:53 66 15 35 02/11/19 12:54 74 15 35 02/11/19 12:11 144/54 02/11/19 12:00 35 02/11/19 12:00 98.2 89 21 144/54 (84) 98 89 02/11/19 12:00 Mechanical Ventilator 02/11/19 11:40 76 02/11/19 10:54 69 14 35 02/11/19 08:53 78 14 35 02/11/19 08:49 77 134/47 02/11/19 08:49 134/47 02/11/19 08:00 Mechanical Ventilator 02/11/19 08:00 98.1 77 20 134/47 (76) 99 77 02/11/19 08:00 35 02/11/19 07:42 77 02/11/19 06:56 74 14 35 02/11/19 05:24 76 18 35 02/11/19 05:15 139/52 02/11/19 05:09 77 139/52 (81) 77 02/11/19 04:00 67 02/11/19 04:00 97.8 78 18 119/72 (88) 99 78 02/11/19 04:00 Mechanical Ventilator 02/11/19 04:00 35 02/11/19 03:11 72 24 35 02/11/19 01:30 70 14 35 02/11/19 00:00 75 02/11/19 00:00 Mechanical Ventilator 02/11/19 00:00 35 02/11/19 00:00 98.0 75 16 112/69 (83) 99 75 02/10/19 23:07 68 108/65 (79) 02/10/19 23:06 108/65 02/10/19 22:36 68 14 35 Intake and Output 02/10/19 02/11/19 18:59 06:59 Intake Total 585 ml 570 ml Balance 585 ml 570 ml Intake Free Water 90 ml 30 ml Tube Feeding 495 ml 540 ml Laboratory Tests Test 02/11/19 05:10 White Blood Count 6.0 K/UL (4.8-10.8) Red Blood Count 2.70 M/UL (4.20-5.40) L Hemoglobin 8.7 G/DL (12.0-16.0) L Hematocrit 25.0 % (37.0-47.0) L Mean Corpuscular Volume 92 FL (80-99) Mean Corpuscular Hemoglobin 32.1 PG (27.0-31.0) H Mean Corpuscular Hemoglobin Concent 34.7 G/DL (32.0-36.0) Red Cell Distribution Width 12.7 % (11.6-14.8) Platelet Count 156 K/UL (150-450) Mean Platelet Volume 6.2 FL (6.5-10.1) L Neutrophils (%) (Auto) 61.7 % (45.0-75.0) Lymphocytes (%) (Auto) 19.9 % (20.0-45.0) L Monocytes (%) (Auto) 14.0 % (1.0-10.0) H Eosinophils (%) (Auto) 3.0 % (0.0-3.0) Basophils (%) (Auto) 1.4 % (0.0-2.0) Sodium Level 135 MMOL/L (136-145) L Potassium Level 3.5 MMOL/L (3.5-5.1) Chloride Level 97 MMOL/L (98-107) L Carbon Dioxide Level 26 MMOL/L (21-32) Anion Gap 12 mmol/L (5-15) Blood Urea Nitrogen 62 mg/dL (7-18) H Creatinine 5.5 MG/DL (0.55-1.30) H Estimat Glomerular Filtration Rate 8.1 mL/min (>60) Glucose Level 243 MG/DL (74-106) H Calcium Level 9.2 MG/DL (8.5-10.1) Phosphorus Level 3.3 MG/DL (2.5-4.9) Magnesium Level 2.7 MG/DL (1.8-2.4) H Total Bilirubin 0.4 MG/DL (0.2-1.0) Aspartate Amino Transf (AST/SGOT) 22 U/L (15-37) Alanine Aminotransferase (ALT/SGPT) 20 U/L (12-78) Alkaline Phosphatase 222 U/L (46-116) H Total Protein 7.8 G/DL (6.4-8.2) Albumin 3.2 G/DL (3.4-5.0) L Globulin 4.6 g/dL Albumin/Globulin Ratio 0.7 (1.0-2.7) L Height (Feet): 5 Height (Inches): 1.00 Weight (Pounds): 247 Medications Current Medications Medications (Trade) Dose Ordered Sig/Dl Route PRN Reason Start Time Stop Time Status Last Admin Dose Admin Amlodipine Besylate (Norvasc) 2.5 mg BID GT 02/10/19 18:00 03/11/19 08:59 02/11/19 08:49 Ascorbic Acid (Vitamin C) 500 mg DAILY GT 02/09/19 09:00 03/11/19 08:59 02/11/19 08:48 Chlorhexidine Gluconate (Martine-Hex 2%) 1 applic DAILY@1999 TOPIC 02/09/19 20:00 03/11/19 19:59 02/11/19 20:24 Dextrose (Dextrose 50%) 25 ml Q30M PRN IV Hypoglycemia 02/08/19 19:00 03/10/19 18:59 Dextrose (Dextrose 50%) 50 ml Q30M PRN IV Hypoglycemia 02/08/19 19:00 03/10/19 18:59 Epoetin Micha (Epoetin Micha(ESRD on dialysis)) 3,000 unit TUE-TUE-TUE SUBQ 02/12/19 21:00 03/14/19 20:59 Hydralazine HCl (Apresoline) 10 mg Q4H PRN IV bp over 160 syst 02/08/19 17:45 03/10/19 17:44 Hydralazine HCl (Apresoline) 10 mg Q6HR GT 02/10/19 12:00 03/11/19 08:59 02/11/19 12:11 Insulin Aspart (NovoLOG) EVERY 6 HOURS SUBQ 02/09/19 12:00 03/11/19 11:59 6/30/19 18:01 Levetiracetam (Keppra) 1,000 mg DAILY GT 02/08/19 19:00 03/10/19 18:59 02/11/19 08:49 Losartan Potassium (Cozaar) 25 mg Q12HR ORAL 02/09/19 21:00 03/10/19 20:59 02/11/19 20:24 Zinc Sulfate (Zinc Sulfate) 220 mg DAILY GT 02/09/19 09:00 03/11/19 08:59 02/11/19 08:49 Assessment/Plan Assessment/Plan: Hematology Consultation REQ : Sruthi Friedman [facility]: Ongoing recurrent anemia DOS: 02/11/19 HISTORY OF PRESENT ILLNESS: The patient is a 54-year-old bed-bound misfortunate female. She is suffering from multiple comorbidities including, but not limited to diabetes and end-stage renal disease. The patient has been transferred regarding the malfunctioning of the hemodialysis access. I have been requested to see the patient for evaluation. At the time of evaluation, the patient is not verbally communicative. The patient is on trach and vent. Limited source of information. PAST MEDICAL HISTORY: Including but not limited to end-stage renal disease, interstitial disease, on hemodialysis, chronic anemia, and severe peripheral vascular disease. PAST SURGICAL HISTORY: Including but not limited to left upper chest wall PermCath placement and amputation of the right lower extremity. Active Scripts Medications Dose Route/Sig Max Daily Dose Days Date Category Catapres* (Clonidine HCl) 0.1 Mg Tablet 0.1 Mg ORAL EVERY 6 HOURS PRN 02/09/19 Reported Nephro-Kitty Tablet (Vitamin B Complex/Vit C/Folic Acid) 0.8 Mg Tablet 1 Tab GT DAILY 02/09/19 Reported [Vuitamin D3] 500 GT EVERY OTH 02/08/19 Reported Lovenox* (Enoxaparin Sodium) 40 Mg/0.4 Ml Inj 40 Mg SUBQ DAILY 02/08/19 Reported Levemir Flexpen (Insulin Detemir) 100 Unit/1 Ml Insuln.pen 30 SUBQ Q12 02/08/19 Reported Novolog Flexpen (Insulin Aspart) 100 Unit/1 Ml Insuln.pen 02/08/19 Reported Cozaar* (Losartan Potassium) 25 Mg Tablet 25 Mg GT DAILY 02/08/19 Reported Ferrous Sulfate* (Ferrous Sulfate) 325 Mg Tablet 330 Mg GT DAILY 02/08/19 Reported Zinc Sulfate* (Zinc Sulfate) 220 Mg Capsule 220 Mg GT DAILY 02/08/19 Reported Lantus (Insulin Glargine) 100 Unit/1 Ml Insuln.pen 30 Units SUBQ Q12HR 11/16/18 Reported Questran Packet (Cholestyramine/Sucrose) 4 Gm Powd.pack 4 Gm GT DAILY 11/16/18 Reported [neutrophos] 1 Packet GT DAILY 09/21/18 Reported Keppra (Levetiracetam) 1,000 Mg Tablet 1,000 Mg GT DAILY 09/21/18 Reported Oyster Shell Calcium (Calcium Carbonate) 500 Mg Tablet 500 Mg GT DAILY 09/21/18 Reported Hydralazine Hcl* (Hydralazine HCl) 50 Mg Tablet 50 Mg GT TID 09/21/18 Reported [prostat sf] 30 Ml GT BID 09/21/18 Reported Norvasc (Amlodipine Besylate) 5 Mg Tablet 5 Mg GT DAILY 09/21/18 Reported Ascorbic Acid* (Ascorbic Acid) 500 Mg Tablet 500 Mg GT DAILY 09/21/18 Reported [nephro aid] 1 Tab GT DAILY 09/21/18 Reported SOCIAL HISTORY: The [facility]. No documented prior history of smoking, tobacco use, or illicit drug abuse in the chart. PHYSICAL EXAMINATION: VITAL SIGNS: on a vent HEAD AND NECK: Atraumatic and normocephalic. Trach in place. CHEST: Clear to auscultation. No wheezing. No crackles. HEART: S1, S2. Regular rate and rhythm. ABDOMEN: Soft. Morbidly obese. Limited evaluation. NEUROLOGY: The patient is delirious. Not verbally communicate. MUSCULOSKELETAL: Positive for right-sided AKA and left-sided mid tarsal amputation of the left foot. Right thigh av fistula LABORATORY DATA: Labs dated 02/08/2019, WBC 7.4, hemoglobin 5.6, and platelets 200,000. Sodium 133, potassium 4, BUN 81, and creatinine 4.7. TSH 2.4. ASSESSMENT: # Anemia of chronic disease due to underlying chronic medical issues, multifactorial, has esrd and on HD --> Anemia workup has been reviewed, sufficicent iron stores --> No evidence of hemolysis is noted, peripheral smear has been reviewed. --> Hgb goal >7. Transfuse prn. --> Epogen 3x week started --> Medications have been reviewed --> low threshold for gi evaluation in case has occult + # Anemia of kidney disease/esrd --> started on epo --> s/p transfusion 02/10 # End-stage renal disease, on hemodialysis, and temporary left upper chest wall PermCath access. --> per renal recs # Obese --> rec weight loss, diet modification # Has left dialysis cath # has right thigh fistula # Trached # Peg + # Obese # Nonverbal # Diabetes type 2. The timing of this note does not necessarily reflect the time of the patient was seen. GREATLY APPRECIATE CONSULTATION. Sung Hollingsworth MD Feb 11, 2019 21:16
[2019-02-12] VITALS (9 sets, daily range): BP systolic 119–138; BP diastolic 43–62
--- NOTE | 2019-02-12 03:46 | NUR ---
NURSE NOTES: Bed bath and oral care given. Repositioned patient. No acute distress/SOB noted. Will continue plan of care.
[2019-02-12] MEDS: HydrALAZINE 10mg Tab GT SCH ×4 (05:50→23:00)
[2019-02-12] MEDS: NovoLOG Insulin Flexpen SUBQ SCH ×4 (05:55→23:01)
--- NOTE | 2019-02-12 06:36 | NUR ---
RESPIRATORY NOTES: Received Patient on Vent Settings ACVC RR 14, VT 500, FIO2 35%, PEEP +5. 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 Breath sounds reveal bilateral rhonchi. Suction small amounts of white clear secretions through the trach. Vent plugged into red outlet. Alarms are on and audible. Will continue to monitor throughout the day.
[2019-02-12 07:09] LABS: ALANINE AMINOTRANSFERASE 12 U/L (12-78); ALBUMIN 2.4 G/DL (3.4-5.0); ALBUMIN/GLOBULIN RATIO 0.6 (1.0-2.7); ALKALINE PHOSPHATASE 174 U/L (46-116); ANION GAP 9 mmol/L (5-15); ASPARTATE AMINO TRANSFERASE 23 U/L (15-37); BILIRUBIN,TOTAL 0.4 MG/DL (0.2-1.0); BLOOD UREA NITROGEN 44 mg/dL (7-18); CALCIUM 8.4 MG/DL (8.5-10.1); CARBON DIOXIDE 29 MMOL/L (21-32); CHLORIDE 98 MMOL/L (98-107); CREATININE 4.3 MG/DL (0.55-1.30); PHOSPHORUS 2.8 MG/DL (2.5-4.9); SODIUM 135 MMOL/L (136-145)
--- NOTE | 2019-02-12 07:15 | NUR ---
NURSE NOTES: RECE,D BED SIDE REPORT FROM NOC SHIFT RN. RECE,D PT WITH HOB ELEVATED 45 DEGREE NON-VERBAL TRACH TO VENT TOLERATING WELL CURRENTS VENT SETTINGS, O2 SAT 100%.PT GTF ON HOLD.PT ON SCHEDULE FOR PERMA CATH REMOVAL BYMN DR POLLARD TODAY.FULL BODY ASSESSMENT DONE ,RENDERED TRACH CARE AND ORAL HYGIEN.PT REPOSITIONED Q 2HRS TO PROVIDE COMFORT AND PREVENT SKIN BREAK DOWN.PT HGB IS 7.[address] MONDRAGON MADE AWARE AND NOTIFIED.WILL CONT TO MONITOR.
[2019-02-12 07:27] LABS: HEMATOCRIT 20.3 % (37.0-47.0); HEMOGLOBIN 7.1 G/DL (12.0-16.0); MEAN CORPUSCULAR VOLUME 92 FL (80-99); PLATELET COUNT 58 K/UL (150-450); RED CELL DISTRIBUTION WIDTH 12.2 % (11.6-14.8); WHITE BLOOD COUNT 4.5 K/UL (4.8-10.8)
--- NOTE | 2019-02-12 07:28 | NUR ---
HAND-OFF: Report given to DAVID Aggarwal. Endorsed plan of care.
[2019-02-12] MEDS: Zinc Sulfate 220mg cap GT SCH (09:45)
[2019-02-12] MEDS: Ascorbic Acid 500mg tab GT SCH (09:45)
[2019-02-12] MEDS: Losartan 25mg tab ORAL SCH ×2 (09:46→20:15)
--- NOTE | 2019-02-12 10:20 | NUR ---
RD ASSESSMENT & RECOMMENDATIONS SEE CARE ACTIVITY FOR COMPLETE ASSESSMENT DAILY ESTIMATED NEEDS: Needs based on ESRD on HD, Critical care 63.8kg adj 22-30 kcals/kg 3550-4783 total kcals 1.2-2 g protein/kg 77-128 g total protein Fluid per MD, on HD mL/kg total fluid mLs NUTRITION DIAGNOSIS: 1) Increased kcal and protein needs r/t renal dysfunction as evidenced by pt w/ ESRD on HD 2) Swallowing difficulty r/r respiratory status as evidenced by pt is vent dep via trach, PEG dep. CURRENT TF: NEPRO@ 45ml/hr x20 hrs ENTERAL NUTRITION RECOMMENDATIONS: NEPRO@ 45ml/hr x20 hrs + Prosource x1 daily to provide 900ml, 1620 kcal, 73g + 11g prot, 654ml free H20 - Maintain current TF - Add PROSOURCE 1 packet daily to better meet est prot needs - Flush per MD/ HOB over 30 degrees ADDITIONAL RECOMMENDATIONS: 1) Daily CALIBRATED BED SCALE WTS PER SNF: 222# (100.9kg) from 11/14/18 2) Monitor lytes daily 3) Add NEPHROVITE x1 daily 4) DC ZnSO4 -> unnecessary and prolonged use of Zinc is not recommended 5) DC Vit C-> unnecessary and not recommended due to ESRD 6) Consider long acting insulin for improved BG control
--- NOTE | 2019-02-12 12:45 | NUR ---
DISCHARGE PLANNED [facility] ROOM [address]A ASSISTED T [phone] FOR NURSE TO NURSE REPORT [facility] PLACED ON WILL CALL
--- NOTE | 2019-02-12 13:00 | Hematology/Onc Progress Note ---
Assessment/Plan Assessment/Plan ASSESSMENT: # Anemia of chronic disease due to underlying chronic medical issues, multifactorial, has esrd and on HD --> Anemia workup has been reviewed, sufficicent iron stores --> No evidence of hemolysis is noted, peripheral smear has been reviewed. --> Hgb goal >7. Transfuse prn. --> Epogen 3x week started --> Medications have been reviewed --> low threshold for gi evaluation in case has occult + # Anemia of kidney disease/esrd --> started on epo --> s/p transfusion 02/10 --> per renal # End-stage renal disease, on hemodialysis, and temporary left upper chest wall PermCath access. --> per renal recs # Obese --> rec weight loss, diet modification # Has left dialysis cath # has right thigh fistula # Trached # Peg + # Obese # Nonverbal # Diabetes type 2. The timing of this note does not necessarily reflect the time of the patient was seen. GREATLY APPRECIATE CONSULTATION. Subjective Constitutional: Denies: no symptoms, chills, fever, malaise, weakness, other HEENT: Denies: no symptoms, eye pain, blurred vision, tearing, double vision, ear pain, ear discharge, nose pain, nose congestion, throat pain, throat swelling, mouth pain, mouth swelling, other Cardiovascular: Denies: no symptoms, chest pain, edema, irregular heart rate, lightheadedness, palpitations, syncope, other Respiratory: Denies: no symptoms, cough, shortness of breath, SOB with excertion, SOB at rest, sputum, wheezing, other Gastrointestinal/Abdominal: Denies: no symptoms, abdomen distended, abdominal pain, black stools, tarry stools, blood in stool, constipated, diarrhea, difficulty swallowing, nausea, poor appetite, poor fluid intake, rectal bleeding , vomiting, other Genitourinary: Denies: no symptoms, burning, discharge, frequency, flank pain, hematuria, incontinence, pain, urgency, other Neurologic/Psychiatric: Denies: no symptoms, anxiety, depressed, emotional problems, headache, numbness, paresthesia, pre-existing deficit, seizure, tingling, tremors, weakness, other Endocrine: Denies: no symptoms, excessive sweating, flushing, intolerance to cold, intolerance to heat, increased hunger, increased thirst, increased urine, unexplained weight gain, unexplained weight loss, other Allergies: Coded Allergies: VANCOMYCIN (Verified Allergy, Unknown, unknown, 11/16/18) Subjective 02/12: no events besides plt much lower, will order hit test bc did receive heparin sq Objective Objective Current Medications Medications (Trade) Dose Ordered Sig/Dl Route PRN Reason Start Time Stop Time Status Last Admin Dose Admin Amlodipine Besylate (Norvasc) 2.5 mg BID GT 02/10/19 18:00 03/11/19 08:59 02/12/19 09:44 Ascorbic Acid (Vitamin C) 500 mg DAILY GT 02/09/19 09:00 03/11/19 08:59 02/12/19 09:45 Chlorhexidine Gluconate (Martine-Hex 2%) 1 applic DAILY@1999 TOPIC 02/09/19 20:00 03/11/19 19:59 02/11/19 20:24 Dextrose (Dextrose 50%) 25 ml Q30M PRN IV Hypoglycemia 02/08/19 19:00 03/10/19 18:59 Dextrose (Dextrose 50%) 50 ml Q30M PRN IV Hypoglycemia 02/08/19 19:00 03/10/19 18:59 Epoetin Micha (Epoetin Micha(ESRD on dialysis)) 3,000 unit TUE-TUE-TUE SUBQ 02/12/19 21:00 03/14/19 20:59 Hydralazine HCl (Apresoline) 10 mg Q4H PRN IV bp over 160 syst 02/08/19 17:45 03/10/19 17:44 Hydralazine HCl (Apresoline) 10 mg Q6HR GT 02/10/19 12:00 03/11/19 08:59 02/12/19 12:49 Insulin Aspart (NovoLOG) EVERY 6 HOURS SUBQ 02/09/19 12:00 03/11/19 11:59 02/12/19 05:55 Levetiracetam (Keppra) 1,000 mg DAILY GT 02/08/19 19:00 03/10/19 18:59 02/12/19 09:45 Losartan Potassium (Cozaar) 25 mg Q12HR ORAL 02/09/19 21:00 03/10/19 20:59 02/12/19 09:46 Zinc Sulfate (Zinc Sulfate) 220 mg DAILY GT 02/09/19 09:00 03/11/19 08:59 02/12/19 09:45 Last 24 Hour Vital Signs Date Time Temp Pulse Resp B/P (MAP) Pulse Ox O2 Delivery O2 Flow Rate FiO2 02/12/19 12:49 127/47 02/12/19 12:00 35 02/12/19 12:00 Mechanical Ventilator 02/12/19 12:00 99.3 69 16 127/47 (73) 100 69 02/12/19 11:00 61 14 35 02/12/19 09:46 125/46 02/12/19 09:44 66 125/46 02/12/19 08:56 66 14 35 02/12/19 08:00 99.3 70 17 125/46 (72) 100 70 02/12/19 08:00 67 02/12/19 08:00 35 02/12/19 08:00 Mechanical Ventilator 02/12/19 07:22 67 16 35 02/12/19 05:50 135/60 02/12/19 05:29 81 17 35 02/12/19 04:00 35 02/12/19 04:00 98.1 67 20 135/60 (85) 100 66 02/12/19 04:00 72 02/12/19 04:00 Mechanical Ventilator 02/12/19 03:30 87 18 35 02/12/19 01:30 64 14 35 02/12/19 00:00 Mechanical Ventilator 02/12/19 00:00 68 02/12/19 00:00 98.0 66 20 122/43 (69) 100 66 02/12/19 00:00 35 02/11/19 23:27 122/43 02/11/19 23:01 65 14 35 02/11/19 21:27 80 16 35 02/11/19 20:24 124/42 02/11/19 20:00 35 02/11/19 20:00 65 02/11/19 20:00 Mechanical Ventilator 02/11/19 20:00 97.9 79 20 124/42 (69) 99 69 02/11/19 19:04 84 15 35 02/11/19 17:56 68 100/46 02/11/19 17:56 100/46 02/11/19 16:55 68 17 35 02/11/19 16:00 Mechanical Ventilator 02/11/19 16:00 98.2 69 21 100/46 (64) 99 69 02/11/19 16:00 35 02/11/19 15:10 67 02/11/19 14:53 66 15 35 02/11/19 12:54 74 15 35 02/11/19 12:11 144/54 02/11/19 12:00 35 02/11/19 12:00 98.2 89 21 144/54 (84) 98 89 02/11/19 12:00 Mechanical Ventilator 02/11/19 11:40 76 02/11/19 10:54 69 14 35 02/11/19 08:53 78 14 35 02/11/19 08:49 77 134/47 02/11/19 08:49 134/47 02/11/19 08:00 Mechanical Ventilator 02/11/19 08:00 98.1 77 20 134/47 (76) 99 77 02/11/19 08:00 35 02/11/19 07:42 77 02/11/19 06:56 74 14 35 02/11/19 05:24 76 18 35 02/11/19 05:15 139/52 02/11/19 05:09 77 139/52 (81) 77 02/11/19 04:00 67 02/11/19 04:00 97.8 78 18 119/72 (88) 99 78 02/11/19 04:00 Mechanical Ventilator 02/11/19 04:00 35 02/11/19 03:11 72 24 35 02/11/19 01:30 70 14 35 02/11/19 00:00 75 02/11/19 00:00 Mechanical Ventilator 02/11/19 00:00 35 02/11/19 00:00 98.0 75 16 112/69 (83) 99 75 02/10/19 23:07 68 108/65 (79) 02/10/19 23:06 108/65 02/10/19 22:36 68 14 35 02/10/19 20:56 67 14 35 02/10/19 20:09 134/49 02/10/19 20:00 35 02/10/19 20:00 98.2 71 18 134/49 (77) 98 71 02/10/19 20:00 Mechanical Ventilator 02/10/19 20:00 77 02/10/19 19:11 74 16 35 02/10/19 18:21 72 123/57 02/10/19 18:21 123/57 02/10/19 16:55 72 14 35 02/10/19 16:00 Mechanical Ventilator 02/10/19 16:00 98.2 79 18 123/57 (79) 96 79 02/10/19 16:00 35 02/10/19 15:24 74 02/10/19 14:38 80 16 35 02/10/19 13:04 75 14 35 Intake and Output 02/11/19 02/12/19 19:00 07:00 Intake Total 465 ml 0 ml Output Total 6000 ml 3000 ml Balance -5535 ml -3000 ml Intake Free Water 60 ml Tube Feeding 405 ml 0 ml Output Hemodialysis UF 3000 ml Other 3000 ml 3000 ml Labs Test 02/10/19 04:35 02/11/19 05:10 02/12/19 05:50 White Blood Count 6.0 K/UL (4.8-10.8) 6.0 K/UL (4.8-10.8) 4.5 K/UL (4.8-10.8) Red Blood Count 2.39 M/UL (4.20-5.40) 2.70 M/UL (4.20-5.40) 2.20 M/UL (4.20-5.40) Hemoglobin 7.6 G/DL (12.0-16.0) 8.7 G/DL (12.0-16.0) 7.1 G/DL (12.0-16.0) Hematocrit 22.2 % (37.0-47.0) 25.0 % (37.0-47.0) 20.3 % (37.0-47.0) Mean Corpuscular Volume 93 FL (80-99) 92 FL (80-99) 92 FL (80-99) Mean Corpuscular Hemoglobin 31.9 PG (27.0-31.0) 32.1 PG (27.0-31.0) 32.3 PG (27.0-31.0) Mean Corpuscular Hemoglobin Concent 34.3 G/DL (32.0-36.0) 34.7 G/DL (32.0-36.0) 35.1 G/DL (32.0-36.0) Red Cell Distribution Width 12.7 % (11.6-14.8) 12.7 % (11.6-14.8) 12.2 % (11.6-14.8) Platelet Count 178 K/UL (150-450) 156 K/UL (150-450) 58 K/UL (150-450) Mean Platelet Volume 6.0 FL (6.5-10.1) 6.2 FL (6.5-10.1) 6.6 FL (6.5-10.1) Neutrophils (%) (Auto) % (45.0-75.0) 61.7 % (45.0-75.0) % (45.0-75.0) Lymphocytes (%) (Auto) % (20.0-45.0) 19.9 % (20.0-45.0) % (20.0-45.0) Monocytes (%) (Auto) % (1.0-10.0) 14.0 % (1.0-10.0) % (1.0-10.0) Eosinophils (%) (Auto) % (0.0-3.0) 3.0 % (0.0-3.0) % (0.0-3.0) Basophils (%) (Auto) % (0.0-2.0) 1.4 % (0.0-2.0) % (0.0-2.0) Differential Total Cells Counted 100 100 Neutrophils % (Manual) 61 % (45-75) 54 % (45-75) Lymphocytes % (Manual) 26 % (20-45) 29 % (20-45) Monocytes % (Manual) 11 % (1-10) 11 % (1-10) Eosinophils % (Manual) 1 % (0-3) 4 % (0-3) Basophils % (Manual) 1 % (0-2) 1 % (0-2) Band Neutrophils 0 % (0-8) 1 % (0-8) Nucleated Red Blood Cells /100 WBC 3 /100 WBC Platelet Estimate Adequate Decreased Platelet Morphology Normal Normal Polychromasia 1+ 1+ Sodium Level 133 MMOL/L (136-145) 135 MMOL/L (136-145) 135 MMOL/L (136-145) Potassium Level 3.4 MMOL/L (3.5-5.1) 3.5 MMOL/L (3.5-5.1) 4.0 MMOL/L (3.5-5.1) Chloride Level 96 MMOL/L (98-107) 97 MMOL/L (98-107) 98 MMOL/L (98-107) Carbon Dioxide Level 26 MMOL/L (21-32) 26 MMOL/L (21-32) 29 MMOL/L (21-32) Anion Gap 12 mmol/L (5-15) 12 mmol/L (5-15) 9 mmol/L (5-15) Blood Urea Nitrogen 51 mg/dL (7-18) 62 mg/dL (7-18) 44 mg/dL (7-18) Creatinine 4.2 MG/DL (0.55-1.30) 5.5 MG/DL (0.55-1.30) 4.3 MG/DL (0.55-1.30) Estimat Glomerular Filtration Rate 11.1 mL/min (>60) 8.1 mL/min (>60) 10.8 mL/min (>60) Glucose Level 238 MG/DL (74-106) 243 MG/DL (74-106) 224 MG/DL (74-106) Calcium Level 8.9 MG/DL (8.5-10.1) 9.2 MG/DL (8.5-10.1) 8.4 MG/DL (8.5-10.1) Phosphorus Level 2.3 MG/DL (2.5-4.9) 3.3 MG/DL (2.5-4.9) 2.8 MG/DL (2.5-4.9) Magnesium Level 2.4 MG/DL (1.8-2.4) 2.7 MG/DL (1.8-2.4) Total Bilirubin 0.4 MG/DL (0.2-1.0) 0.4 MG/DL (0.2-1.0) 0.4 MG/DL (0.2-1.0) Aspartate Amino Transf (AST/SGOT) 25 U/L (15-37) 22 U/L (15-37) 23 U/L (15-37) Alanine Aminotransferase (ALT/SGPT) 27 U/L (12-78) 20 U/L (12-78) 12 U/L (12-78) Alkaline Phosphatase 230 U/L (46-116) 222 U/L (46-116) 174 U/L (46-116) C-Reactive Protein, Quantitative 4.7 mg/dL (0.00-0.90) Pro-B-Type Natriuretic Peptide 3169 pg/mL (0-125) Total Protein 7.9 G/DL (6.4-8.2) 7.8 G/DL (6.4-8.2) 6.1 G/DL (6.4-8.2) Albumin 3.2 G/DL (3.4-5.0) 3.2 G/DL (3.4-5.0) 2.4 G/DL (3.4-5.0) Globulin 4.7 g/dL 4.6 g/dL 3.7 g/dL Albumin/Globulin Ratio 0.7 (1.0-2.7) 0.7 (1.0-2.7) 0.6 (1.0-2.7) Hypochromasia 3+ Anisocytosis 1+ Height (Feet): 5 Height (Inches): 1.00 Weight (Pounds): 240 Objective PHYSICAL EXAMINATION: VITAL SIGNS: on a vent HEAD AND NECK: Atraumatic and normocephalic. Trach in place. CHEST: Clear to auscultation. No wheezing. No crackles. HEART: S1, S2. Regular rate and rhythm. ABDOMEN: Soft. Morbidly obese. Limited evaluation. NEUROLOGY: The patient is delirious. Not verbally communicate. MUSCULOSKELETAL: Positive for right-sided AKA and left-sided mid tarsal amputation of the left foot. Right thigh av fistula Sung Hollingsworth MD Feb 12, 2019 13:00
--- NOTE | 2019-02-12 13:24 | Nephrology Progress Note ---
Assessment/Plan Problem List: (1) ESRD (end stage renal disease) (2) Respirator mechanical failure (3) Complications, mechanical, catheter, dialysis (4) Anemia in CKD (chronic kidney disease) Assessment ESRD HTN DM Chronic Respiratory failure PEG+ dialysis access malfunction Plan One unit transfusion today 02/12 Transfusion one unit 02/10 HD done 02/11 DC ?? adjust BP meds Per orders Subjective ROS Limited/Unobtainable: Yes Objective Objective Last 24 Hour Vital Signs Date Time Temp Pulse Resp B/P (MAP) Pulse Ox O2 Delivery O2 Flow Rate FiO2 02/12/19 13:20 75 15 35 02/12/19 12:49 127/47 02/12/19 12:00 35 02/12/19 12:00 Mechanical Ventilator 02/12/19 12:00 99.3 69 16 127/47 (73) 100 69 02/12/19 11:00 61 14 35 02/12/19 09:46 125/46 02/12/19 09:44 66 125/46 02/12/19 08:56 66 14 35 02/12/19 08:00 99.3 70 17 125/46 (72) 100 70 02/12/19 08:00 67 02/12/19 08:00 35 02/12/19 08:00 Mechanical Ventilator 02/12/19 07:22 67 16 35 02/12/19 05:50 135/60 02/12/19 05:29 81 17 35 02/12/19 04:00 35 02/12/19 04:00 98.1 67 20 135/60 (85) 100 66 02/12/19 04:00 72 02/12/19 04:00 Mechanical Ventilator 02/12/19 03:30 87 18 35 02/12/19 01:30 64 14 35 02/12/19 00:00 Mechanical Ventilator 02/12/19 00:00 68 02/12/19 00:00 98.0 66 20 122/43 (69) 100 66 02/12/19 00:00 35 02/11/19 23:27 122/43 02/11/19 23:01 65 14 35 02/11/19 21:27 80 16 35 02/11/19 20:24 124/42 02/11/19 20:00 35 02/11/19 20:00 65 02/11/19 20:00 Mechanical Ventilator 02/11/19 20:00 97.9 79 20 124/42 (69) 99 69 02/11/19 19:04 84 15 35 02/11/19 17:56 68 100/46 02/11/19 17:56 100/46 02/11/19 16:55 68 17 35 02/11/19 16:00 Mechanical Ventilator 02/11/19 16:00 98.2 69 21 100/46 (64) 99 69 02/11/19 16:00 35 02/11/19 15:10 67 02/11/19 14:53 66 15 35 Intake and Output 02/11/19 02/12/19 19:00 07:00 Intake Total 465 ml 0 ml Output Total 6000 ml 3000 ml Balance -5535 ml -3000 ml Intake Free Water 60 ml Tube Feeding 405 ml 0 ml Output Hemodialysis UF 3000 ml Other 3000 ml 3000 ml Laboratory Tests 02/12/19 05:50: White Blood Count 4.5L, Red Blood Count 2.20L, Hemoglobin 7.1L, Hematocrit 20.3L , Mean Corpuscular Volume 92, Mean Corpuscular Hemoglobin 32.3H, Mean Corpuscular Hemoglobin Concent 35.1, Red Cell Distribution Width 12.2, Platelet Count 58#L, Mean Platelet Volume 6.6, Neutrophils (%) (Auto) , Lymphocytes (%) ( Auto) , Monocytes (%) (Auto) , Eosinophils (%) (Auto) , Basophils (%) (Auto) , Differential Total Cells Counted 100, Neutrophils % (Manual) 54, Lymphocytes % ( Manual) 29, Monocytes % (Manual) 11H, Eosinophils % (Manual) 4H, Basophils % ( Manual) 1, Band Neutrophils 1, Nucleated Red Blood Cells 3, Platelet Estimate DecreasedL, Platelet Morphology Normal, Polychromasia 1+, Hypochromasia 3+, Anisocytosis 1+, Sodium Level 135L, Potassium Level 4.0, Chloride Level 98, Carbon Dioxide Level 29, Anion Gap 9, Blood Urea Nitrogen 44H, Creatinine 4.3H, Estimat Glomerular Filtration Rate 10.8, Glucose Level 224H, Calcium Level 8.4L , Phosphorus Level 2.8, Total Bilirubin 0.4, Aspartate Amino Transf (AST/SGOT) 23, Alanine Aminotransferase (ALT/SGPT) 12, Alkaline Phosphatase 174H, Total Protein 6.1L, Albumin 2.4L, Globulin 3.7, Albumin/Globulin Ratio 0.6L Height (Feet): 5 Height (Inches): 1.00 Weight (Pounds): 240 EENT: other - trach Cardiovascular: normal rate Respiratory/Chest: decreased breath sounds Abdomen: distended Nhan Cunha MD Feb 12, 2019 13:24
--- NOTE | 2019-02-12 13:56 | NUR ---
NURSE NOTES: PLACED A TELEPHONE CALL TO DR DAILY AND MADE AWARE AND NOTIFIED REGARDING PT PLT COUNT IS 58. RECEIVED A T.O FROM DR GUTIERREZ TO GIVE 1 UNIT OF PLT TODAY.ALL NEW ORDERS NOTED AND CARRIED OUT. WILL CONT TO MONITOR.`
[2019-02-12] MEDS ORDERED: Lidocaine 1% 10mg/ml/EPI 0.01mg/ml 50ml INJ SCH (14:28)
--- NOTE | 2019-02-12 14:49 | Pre-Procedure Note/Attestation ---
Pre-Procedure Note/Attestation Complete Prior to Procedure Procedure Narrative: permacath removal Indications for Procedure Pre-Operative Diagnosis: renal failure Attestation I attest that I discussed the nature of the procedure; its benefits; risks and complications; and alternatives (and the risks and benefits of such alternatives ), prior to the procedure, with the patient (or the patient's legal malt liquors sales representative). I attest that, if there was a reasonable possibility of needing a blood transfusion, the patient (or the patient's legal malt liquors sales representative) was given the [facility] standardized written summary, pursuant to the [place] Blood Safety Act ([place] Health and Safety Code # 1645, as amended). I attest that I re-evaluated the patient just prior to the surgery and that there has been no change in the patient's H&P, except as documented below: Discussed with pt.'s daughter Ashley Munoz by phone at [phone] Allan Rolon MD Feb 12, 2019 14:49
--- NOTE | 2019-02-12 15:30 | NUR ---
NURSE NOTES: DR MELÉNDEZ ABLE TO REMOVE PERMA-CATH OF LT CHEST WALL AREA. PT TOLERATED WELL PROCEDURE.DRESSING ON LT UPPER CHEST SEEMS DRY AND INTACT. WILL CONT TO MONITOR.
--- NOTE | 2019-02-12 15:41 | NUR ---
RADIOLOGY: TUNNLED DIAYLSIS REMOVED
--- NOTE | 2019-02-12 15:54 | Brief Operative Note ---
Immediate Post Operative Note Operative Note Pre-op Diagnosis: renal failure Procedure: permacath removal Post-op Diagnosis: same as pre-op Surgeon: Jose ROLON Anesthesia: local Specimen: yes - permacath sent to pathology Complications: none Fluids: none Implant(s) used?: No Allan Rolon MD Feb 12, 2019 15:54
--- NOTE | 2019-02-12 16:42 | Diagnostic Imaging Report ---
Indication: Functioning dialysis fistula, dialysis catheter no longer needed Technique: Procedure performed at bedside. Informed consent obtained prior to commencement of the procedure from the patient's daughter. Procedural timeout performed. Sterile prepping and draping. Local anesthesia with partial lidocaine. Using blunt dissection, the cuff was freed from the surrounding tissue. The catheter was then removed by gentle traction. It was sent to pathology. The patient tolerated the procedure well, without immediate complication. Follow-up chest radiograph documents complete removal of the catheter Comparison: none Findings: Follow-up chest radiograph documents complete removal of the catheter Impression: Successful bedside removal of tunneled dialysis catheter, as described
--- NOTE | 2019-02-12 17:25 | General Progress Note ---
Assessment/Plan Status: stable Assessment/Plan: S: Not verbal O: Vent setting reviewed. Seems comfortable. PHYSICAL EXAMINATION:HEAD AND NECK: Atraumatic and normocephalic. Trach in place. CHEST: Clear to auscultation. No wheezing. No crackles.HEART: S1, S2. Regular rate and rhythm. ABDOMEN: Soft. Morbidly obese. Limited evaluation.NEUROLOGY: The patient is delirious. Not verbally communicate. MUSCULOSKELETAL: Positive for right-sided AKA and left-sided mid tarsal amputation of the left foot. LABORATORY DATA: Labs dated 02/10/2019, Meds: reviewed and reconciled ASSESSMENT: 1. Malfunctions of the right thigh AV fistula. 2. End-stage renal disease, on hemodialysis, and temporary left upper chest wall PermCath access. 3. Acute on chronic anemia. 4. Diabetes type 2. 5. Hypertension. 6. Lack of capacity of making medical decisions. 7. GI and DVT prophylaxis. 8. Severe peripheral vascular disease and multiple segmental amputations of the lower extremity. Plan; Tolerating the PEG tube feeding Will monitor electrolyte. Ok to DC to facility post transfusion IR to remove Permcath Subjective Allergies: Coded Allergies: VANCOMYCIN (Verified Allergy, Unknown, unknown, 11/16/18) Objective Last 24 Hour Vital Signs Date Time Temp Pulse Resp B/P (MAP) Pulse Ox O2 Delivery O2 Flow Rate FiO2 02/12/19 17:02 87 14 35 02/12/19 16:00 98.3 81 16 119/48 (71) 100 81 02/12/19 16:00 Mechanical Ventilator 02/12/19 16:00 35 02/12/19 15:18 73 19 35 02/12/19 13:20 75 15 35 02/12/19 12:49 127/47 02/12/19 12:00 35 02/12/19 12:00 Mechanical Ventilator 02/12/19 12:00 68 02/12/19 12:00 99.3 69 16 127/47 (73) 100 69 02/12/19 11:00 61 14 35 02/12/19 09:46 125/46 02/12/19 09:44 66 125/46 02/12/19 08:56 66 14 35 02/12/19 08:00 99.3 70 17 125/46 (72) 100 70 02/12/19 08:00 67 02/12/19 08:00 35 02/12/19 08:00 Mechanical Ventilator 02/12/19 07:22 67 16 35 02/12/19 05:50 135/60 02/12/19 05:29 81 17 35 02/12/19 04:00 35 02/12/19 04:00 98.1 67 20 135/60 (85) 100 66 02/12/19 04:00 72 02/12/19 04:00 Mechanical Ventilator 02/12/19 03:30 87 18 35 02/12/19 01:30 64 14 35 02/12/19 00:00 Mechanical Ventilator 02/12/19 00:00 68 02/12/19 00:00 98.0 66 20 122/43 (69) 100 66 02/12/19 00:00 35 02/11/19 23:27 122/43 02/11/19 23:01 65 14 35 02/11/19 21:27 80 16 35 02/11/19 20:24 124/42 02/11/19 20:00 35 02/11/19 20:00 65 02/11/19 20:00 Mechanical Ventilator 02/11/19 20:00 97.9 79 20 124/42 (69) 99 69 02/11/19 19:04 84 15 35 02/11/19 17:56 68 100/46 02/11/19 17:56 100/46 Intake and Output 02/11/19 02/12/19 19:00 07:00 Intake Total 465 ml 0 ml Output Total 6000 ml 3000 ml Balance -5535 ml -3000 ml Intake Free Water 60 ml Tube Feeding 405 ml 0 ml Output Hemodialysis UF 3000 ml Other 3000 ml 3000 ml Laboratory Tests 02/12/19 05:50: White Blood Count 4.5L, Red Blood Count 2.20L, Hemoglobin 7.1L, Hematocrit 20.3L , Mean Corpuscular Volume 92, Mean Corpuscular Hemoglobin 32.3H, Mean Corpuscular Hemoglobin Concent 35.1, Red Cell Distribution Width 12.2, Platelet Count 58#L, Mean Platelet Volume 6.6, Neutrophils (%) (Auto) , Lymphocytes (%) ( Auto) , Monocytes (%) (Auto) , Eosinophils (%) (Auto) , Basophils (%) (Auto) , Differential Total Cells Counted 100, Neutrophils % (Manual) 54, Lymphocytes % ( Manual) 29, Monocytes % (Manual) 11H, Eosinophils % (Manual) 4H, Basophils % ( Manual) 1, Band Neutrophils 1, Nucleated Red Blood Cells 3, Platelet Estimate DecreasedL, Platelet Morphology Normal, Polychromasia 1+, Hypochromasia 3+, Anisocytosis 1+, Sodium Level 135L, Potassium Level 4.0, Chloride Level 98, Carbon Dioxide Level 29, Anion Gap 9, Blood Urea Nitrogen 44H, Creatinine 4.3H, Estimat Glomerular Filtration Rate 10.8, Glucose Level 224H, Calcium Level 8.4L , Phosphorus Level 2.8, Total Bilirubin 0.4, Aspartate Amino Transf (AST/SGOT) 23, Alanine Aminotransferase (ALT/SGPT) 12, Alkaline Phosphatase 174H, Total Protein 6.1L, Albumin 2.4L, Globulin 3.7, Albumin/Globulin Ratio 0.6L Height (Feet): 5 Height (Inches): 1.00 Weight (Pounds): 240 Sruthi Friedman MD Feb 12, 2019 17:25
--- NOTE | 2019-02-12 17:45 | NUR ---
NURSE NOTES: PT STARTED ON BLOOD TRANSFUSION PER Tena MONDRAGON ORDERS .PT TOLERATING WELL BLOOD TRANSFUSION,NO EVIDENCE OF ANY ADVERSE REACTIONS NOTED AT THIS TIME.WILL CONT TO MONITOR.
--- NOTE | 2019-02-12 19:05 | NUR ---
HAND-OFF: Report given to .MAGDALENO HERNANDEZ.
--- NOTE | 2019-02-12 19:16 | NUR ---
NURSE NOTES: Received report from Max RN, pt. in bed obtunded, no signs or symptoms of acute cardiac or respiratory distress noted, bed in lowest position and call light within easy reach, bed alarm on, side rails up x's3 and safety brakes engaged, side rails padded for seizure precautions- no seizure activity noted, pt. appears to be tolerating current vent settings well- ac 14, TV 500, fIO2 @35% AND PEEP 5, Nephro running via G tube at 45cc/hr- no residual noted, pt is clean and dry, comfort measures provided, pt. has RFA 20G- IV intact and patent- running 1U PRBC at 125mls/hr- per endorsement to run 1 order for platelet after blood is complete. pt. remains stable and no distress noted, pt. has new AV fistula to rt. thigh- for hemodialysis, safety measures continued, will continue with plan of care.
[2019-02-12] MEDS: Dyna-Hex 2% Top Sol 2oz TOPIC SCH (20:14)
--- NOTE | 2019-02-12 20:50 | NUR ---
NURSE NOTES: blood transfusion - pt. appears to remains stable and no distress noted-VS temp 97.8, pulse 70, resp18, b/p 128/60- will continue to monitor pt.and with plan of care.
[2019-02-12] MEDS ORDERED: Epoetin Alfa-EPBX(ESRD on dialysis)3000 units/ml vial SUBQ SCH (21:00)
--- NOTE | 2019-02-12 21:20 | NUR ---
NURSE NOTES: pre-transfusion VS taken before Platelet transfusion, temp 97.8, b/p 129/62, resp 18 and pulse 68, pulse ox 99%-pt. appears to be stable and no signs of distress noted.
--- NOTE | 2019-02-12 21:35 | NUR ---
NURSE NOTES: Post transfusion VS taken during Platelet transfusion, temp 97.7, b/p 138/54, resp 18 and pulse 69, pulse ox 99%-pt. appears to be stable and no signs of distress noted. Will continue to monitor pt. and with plan of care.
[2019-02-13] VITALS (7 sets, daily range): BP systolic 140–147; BP diastolic 61–74
--- NOTE | 2019-02-13 01:00 | NUR ---
NURSE NOTES: Platelet transfusion complete- pt. appears to have tolerated transfusion well - no adverse reactions noted- VS 99%, b/p 140/62, pulse 71, temp 98.1 axillary and respirations 18- will continue to monitor pt. and with plan of care.
[2019-02-13] MEDS: NovoLOG Insulin Flexpen SUBQ SCH ×3 (05:02→18:00)
[2019-02-13] MEDS: HydrALAZINE 10mg Tab GT SCH ×3 (05:03→18:18)
[2019-02-13 06:21] LABS: BASOPHILS % (AUTO) 0.7 % (0.0-2.0); HEMATOCRIT 30.3 % (37.0-47.0); HEMOGLOBIN 10.6 G/DL (12.0-16.0); LYMPHOCYTES % (AUTO) 14.3 % (20.0-45.0); MEAN CORPUSCULAR VOLUME 92 FL (80-99); MONOCYTES % (AUTO) 8.8 % (1.0-10.0); NEUTROPHILS % (AUTO) 75.2 % (45.0-75.0); PLATELET COUNT 155 K/UL (150-450); RED CELL DISTRIBUTION WIDTH 12.6 % (11.6-14.8); WHITE BLOOD COUNT 7.5 K/UL (4.8-10.8)
--- NOTE | 2019-02-13 07:05 | NUR ---
HAND-OFF: Report given to Jasen Santana RN, pt. remains stable and no signs of distress noted. Aware to f/u with Marce at lab regarding specimen collected yesterday.
--- NOTE | 2019-02-13 07:08 | NUR ---
RESPIRATORY NOTE: received pt on vent,trached with portex 8. trach is midline, secured via trach guard/tie. no resp distress noted at this time. alarms are set and audible with ambu bag and back up trach at bedside. will cont to monitor
--- NOTE | 2019-02-13 07:15 | NUR ---
NURSE NOTES: RECEIVED A BED SIDE REPORT FROM TYLORITA BRAND AMBASS[facility]OR PROMOTIONAL MODEL OF NOC SHIFT. RECEIVED PT WITH HOB ELEVATED 45 DEGREE OBTUNDED,TRACH TO VENT. TRACH PATENT AND INTACT AT MID LINE WELL SECURED.PT TOLERATING WELL CURRENTS VENT SETTINGS,RENDERED TRACH CARE AND ORAL HYGIENE,MOD AMT OF TICK WITH SECRETIONS NOTED .PT HGB 10.6 AND PLT 155 M.D BLUN CAME TO SEE THE PT AND MADE AWARE AND NOTIFIED REGARDING NEW LAB,S .M.D STATED PT WILL NOT HAVE H.D TODAY AND WILL BE DISCHARGE TODAY. FULL BODY ASSESSED AND REPOSITIONING THE PT Q2HRS TO PREVENT SKIN BREAK DOWN.PT TOLERATING WELL GTF NEPRO AT 45CC/HRS ,NO RESIDUAL NOTED.NO ACUTE DISTRESS NOTED AT THIS TIME.WILL CONT TO MONITOR.
[2019-02-13 07:36] LABS: ALANINE AMINOTRANSFERASE 30 U/L (12-78); ALBUMIN/GLOBULIN RATIO 0.7 (1.0-2.7); ALKALINE PHOSPHATASE 210 U/L (46-116); ANION GAP 18 mmol/L (5-15); ASPARTATE AMINO TRANSFERASE 41 U/L (15-37); BILIRUBIN,TOTAL 0.6 MG/DL (0.2-1.0); BLOOD UREA NITROGEN 50 mg/dL (7-18); CARBON DIOXIDE 22 MMOL/L (21-32); CHLORIDE 96 MMOL/L (98-107); CREATININE 5.1 MG/DL (0.55-1.30); PHOSPHORUS 3.6 MG/DL (2.5-4.9); POTASSIUM 4.9 MMOL/L (3.5-5.1); SODIUM 136 MMOL/L (136-145)
[2019-02-13] MEDS: Zinc Sulfate 220mg cap GT SCH (09:31)
[2019-02-13] MEDS: Losartan 25mg tab ORAL SCH (09:31)
[2019-02-13] MEDS: Ascorbic Acid 500mg tab GT SCH (09:31)
--- NOTE | 2019-02-13 10:59 | Nephrology Progress Note ---
Assessment/Plan Problem List: (1) ESRD (end stage renal disease) (2) Respirator mechanical failure (3) Complications, mechanical, catheter, dialysis (4) Anemia in CKD (chronic kidney disease) Assessment ESRD HTN DM Chronic Respiratory failure PEG+ dialysis access malfunction Plan One unit transfusion today 02/12 Transfusion one unit 02/10 HD done 02/11 DC ?? next HD in am if in house adjust BP meds Per orders Subjective ROS Limited/Unobtainable: Yes Objective Objective Last 24 Hour Vital Signs Date Time Temp Pulse Resp B/P (MAP) Pulse Ox O2 Delivery O2 Flow Rate FiO2 02/13/19 10:47 79 15 35 02/13/19 09:38 70 14 35 02/13/19 09:31 145/67 02/13/19 09:30 72 145/67 02/13/19 08:00 35 02/13/19 08:00 72 02/13/19 08:00 Mechanical Ventilator 02/13/19 08:00 98.6 70 18 145/67 (93) 100 70 02/13/19 07:07 66 14 35 02/13/19 05:05 75 19 35 02/13/19 05:03 147/74 02/13/19 04:00 35 02/13/19 04:00 Mechanical Ventilator 02/13/19 03:59 97.8 76 20 147/74 (98) 99 76 02/13/19 03:55 69 02/13/19 03:01 75 16 35 02/13/19 01:12 70 19 35 02/13/19 01:00 98.1 71 18 140/62 (88) 99 71 02/13/19 00:00 71 02/13/19 00:00 Mechanical Ventilator 02/13/19 00:00 35 02/13/19 00:00 96.8 72 22 142/66 (91) 100 72 02/12/19 23:15 68 18 35 02/12/19 23:00 138/67 02/12/19 21:35 97.7 69 18 138/54 (82) 99 69 02/12/19 21:20 97.8 68 18 129/62 (84) 99 68 02/12/19 20:59 89 17 35 02/12/19 20:50 97.8 70 18 128/60 (82) 99 70 02/12/19 20:15 124/55 02/12/19 20:00 66 02/12/19 20:00 35 02/12/19 20:00 Mechanical Ventilator 02/12/19 20:00 97.9 66 16 124/55 (78) 99 66 02/12/19 19:07 64 16 35 02/12/19 18:19 87 119/48 02/12/19 18:19 119/48 02/12/19 17:02 87 14 35 02/12/19 16:00 98.3 81 16 119/48 (71) 100 81 02/12/19 16:00 Mechanical Ventilator 02/12/19 16:00 35 02/12/19 16:00 85 02/12/19 15:18 73 19 35 02/12/19 13:20 75 15 35 02/12/19 12:49 127/47 02/12/19 12:00 35 02/12/19 12:00 Mechanical Ventilator 02/12/19 12:00 68 02/12/19 12:00 99.3 69 16 127/47 (73) 100 69 02/12/19 11:00 61 14 35 Intake and Output 02/12/19 02/13/19 19:00 07:00 Intake Total 410 ml 525 ml Balance 410 ml 525 ml Intake Free Water 130 ml 30 ml Tube Feeding 180 ml 495 ml Blood Product 100 ml # Bowel Movements 1 Laboratory Tests 02/13/19 04:09: White Blood Count 7.5#, Red Blood Count 3.30L, Hemoglobin 10.6#L, Hematocrit 30.3#L, Mean Corpuscular Volume 92, Mean Corpuscular Hemoglobin 32.1H, Mean Corpuscular Hemoglobin Concent 35.0, Red Cell Distribution Width 12.6, Platelet Count 155#, Mean Platelet Volume 5.3L, Neutrophils (%) (Auto) 75.2H, Lymphocytes (%) (Auto) 14.3L, Monocytes (%) (Auto) 8.8, Eosinophils (%) (Auto) 1.0, Basophils (%) (Auto) 0.7, Sodium Level 136, Potassium Level 4.9, Chloride Level 96L, Carbon Dioxide Level 22, Anion Gap 18H, Blood Urea Nitrogen 50H, Creatinine 5.1H, Estimat Glomerular Filtration Rate 8.8, Glucose Level 226H, Calcium Level 9.0, Phosphorus Level 3.6, Total Bilirubin 0.6, Aspartate Amino Transf (AST/SGOT) 41H, Alanine Aminotransferase (ALT/SGPT) 30, Alkaline Phosphatase 210H, Total Protein 7.5, Albumin 3.0L, Globulin 4.5, Albumin/ Globulin Ratio 0.7L Height (Feet): 5 Height (Inches): 1.00 Weight (Pounds): 246 General Appearance: no apparent distress Cardiovascular: normal rate Respiratory/Chest: decreased breath sounds Abdomen: distended Nhan Cunha MD Feb 13, 2019 10:59
--- NOTE | 2019-02-13 13:09 | General Progress Note ---
Assessment/Plan Status: stable Assessment/Plan: S: Not verbal O: Vent setting reviewed. Seems comfortable. PHYSICAL EXAMINATION:HEAD AND NECK: Atraumatic and normocephalic. Trach in place. CHEST: Clear to auscultation. No wheezing. No crackles.HEART: S1, S2. Regular rate and rhythm. ABDOMEN: Soft. Morbidly obese. Limited evaluation.NEUROLOGY: The patient is delirious. Not verbally communicate. MUSCULOSKELETAL: Positive for right-sided AKA and left-sided mid tarsal amputation of the left foot. LABORATORY DATA: Labs dated 02/10/2019, Meds: reviewed and reconciled ASSESSMENT: 1. Malfunctions of the right thigh AV fistula. 2. End-stage renal disease, on hemodialysis, and temporary left upper chest wall PermCath access. 3. Acute on chronic anemia. 4. Diabetes type 2. 5. Hypertension. 6. Lack of capacity of making medical decisions. 7. GI and DVT prophylaxis. 8. Severe peripheral vascular disease and multiple segmental amputations of the lower extremity. Plan; Tolerating the PEG tube feeding Will monitor electrolyte as out patient Ok to DC to facility today Post removal of Permcath Subjective Allergies: Coded Allergies: VANCOMYCIN (Verified Allergy, Unknown, unknown, 11/16/18) Objective Last 24 Hour Vital Signs Date Time Temp Pulse Resp B/P (MAP) Pulse Ox O2 Delivery O2 Flow Rate FiO2 02/13/19 12:49 145/67 02/13/19 12:00 Mechanical Ventilator 02/13/19 12:00 35 02/13/19 10:47 79 15 35 02/13/19 09:38 70 14 35 02/13/19 09:31 145/67 02/13/19 09:30 72 145/67 02/13/19 08:00 35 02/13/19 08:00 72 02/13/19 08:00 Mechanical Ventilator 02/13/19 08:00 98.6 70 18 145/67 (93) 100 70 02/13/19 07:07 66 14 35 02/13/19 05:05 75 19 35 02/13/19 05:03 147/74 02/13/19 04:00 35 02/13/19 04:00 Mechanical Ventilator 02/13/19 03:59 97.8 76 20 147/74 (98) 99 76 02/13/19 03:55 69 02/13/19 03:01 75 16 35 02/13/19 01:12 70 19 35 02/13/19 01:00 98.1 71 18 140/62 (88) 99 71 02/13/19 00:00 71 02/13/19 00:00 Mechanical Ventilator 02/13/19 00:00 35 02/13/19 00:00 96.8 72 22 142/66 (91) 100 72 02/12/19 23:15 68 18 35 02/12/19 23:00 138/67 02/12/19 21:35 97.7 69 18 138/54 (82) 99 69 02/12/19 21:20 97.8 68 18 129/62 (84) 99 68 02/12/19 20:59 89 17 35 02/12/19 20:50 97.8 70 18 128/60 (82) 99 70 02/12/19 20:15 124/55 02/12/19 20:00 66 02/12/19 20:00 35 02/12/19 20:00 Mechanical Ventilator 02/12/19 20:00 97.9 66 16 124/55 (78) 99 66 02/12/19 19:07 64 16 35 02/12/19 18:19 87 119/48 02/12/19 18:19 119/48 02/12/19 17:02 87 14 35 02/12/19 16:00 98.3 81 16 119/48 (71) 100 81 02/12/19 16:00 Mechanical Ventilator 02/12/19 16:00 35 02/12/19 16:00 85 02/12/19 15:18 73 19 35 02/12/19 13:20 75 15 35 Intake and Output 02/12/19 02/13/19 19:00 07:00 Intake Total 410 ml 525 ml Balance 410 ml 525 ml Intake Free Water 130 ml 30 ml Tube Feeding 180 ml 495 ml Blood Product 100 ml # Bowel Movements 1 Laboratory Tests 02/13/19 04:09: White Blood Count 7.5#, Red Blood Count 3.30L, Hemoglobin 10.6#L, Hematocrit 30.3#L, Mean Corpuscular Volume 92, Mean Corpuscular Hemoglobin 32.1H, Mean Corpuscular Hemoglobin Concent 35.0, Red Cell Distribution Width 12.6, Platelet Count 155#, Mean Platelet Volume 5.3L, Neutrophils (%) (Auto) 75.2H, Lymphocytes (%) (Auto) 14.3L, Monocytes (%) (Auto) 8.8, Eosinophils (%) (Auto) 1.0, Basophils (%) (Auto) 0.7, Sodium Level 136, Potassium Level 4.9, Chloride Level 96L, Carbon Dioxide Level 22, Anion Gap 18H, Blood Urea Nitrogen 50H, Creatinine 5.1H, Estimat Glomerular Filtration Rate 8.8, Glucose Level 226H, Calcium Level 9.0, Phosphorus Level 3.6, Total Bilirubin 0.6, Aspartate Amino Transf (AST/SGOT) 41H, Alanine Aminotransferase (ALT/SGPT) 30, Alkaline Phosphatase 210H, Total Protein 7.5, Albumin 3.0L, Globulin 4.5, Albumin/ Globulin Ratio 0.7L Height (Feet): 5 Height (Inches): 1.00 Weight (Pounds): 246 Sruthi Friedman MD Feb 13, 2019 13:09
--- NOTE | 2019-02-13 15:30 | NUR ---
NURSE NOTES: PLACED A TELEPHONE CALL TO [facility] AND REPORT GIVEN TO PK RN IN CHARGE. A WAITING FOR [facility] TO PICK THE PATIENT.WILL CONT TO MONITOR.
--- NOTE | 2019-02-13 16:48 | NUR ---
NURSE NOTES:PT WITH TEMP 100 ORALLY .PT MEDICATED WITH TYLENOL 650MG VIA GT PER M.D ORDERS BY CHAYA HERNANDEZ IN CHARGE.WILL CONT TO MONITOR.
--- NOTE | 2019-02-13 17:45 | NUR ---
NURSE NOTES: RE-ASSESSED TEMP 98.4 AXILLARY.NO ACUTE DISTRESS NOTED AT THIS TIME.WILL CONT TO MONITOR.
--- NOTE | 2019-02-13 18:20 | NUR ---
NURSE NOTES: REPORT GIVEN TO RAMIRO KRUGERS STAFF OF [facility] .PT LEFT THE HOSPITAL VIA AMBULANCE CONNECTED WITH ENTERTAINMENT MUSICIAN AND PORTABLE VENTILATOR ON STABLE CONDITION.
[2019-02-13] MEDS ORDERED: NS 275ml ONE (18:39)
[2019-02-13] MEDS ORDERED: Tubing Blood Filter IV ONE (18:39)
--- NOTE | 2019-02-13 22:09 | Hematology/Onc Progress Note ---
Assessment/Plan Assessment/Plan ASSESSMENT: # Anemia of chronic disease due to underlying chronic medical issues, multifactorial, has esrd and on HD --> Anemia workup has been reviewed, sufficicent iron stores --> No evidence of hemolysis is noted, peripheral smear has been reviewed. --> Hgb goal >7. Transfuse prn. --> Epogen 3x week started --> Medications have been reviewed --> low threshold for gi evaluation in case has occult + # Anemia of kidney disease/esrd --> started on epo --> s/p transfusion 02/10 --> per renal # End-stage renal disease, on hemodialysis, and temporary left upper chest wall PermCath access. --> per renal recs # Obese --> rec weight loss, diet modification # Has left dialysis cath # has right thigh fistula # Trached # Peg + # Obese # Nonverbal # Diabetes type 2. The timing of this note does not necessarily reflect the time of the patient was seen. GREATLY APPRECIATE CONSULTATION. Subjective Allergies: Coded Allergies: VANCOMYCIN (Verified Allergy, Unknown, unknown, 11/16/18) Subjective 02/12: no events besides plt much lower, will order hit test bc did receive heparin sq 02/13: Pt stable and no signs of distress DC planning Objective Objective Last 24 Hour Vital Signs Date Time Temp Pulse Resp B/P (MAP) Pulse Ox O2 Delivery O2 Flow Rate FiO2 02/13/19 18:19 77 141/70 02/13/19 18:18 141/70 02/13/19 17:18 99.0 02/13/19 16:45 77 22 35 02/13/19 16:00 35 02/13/19 16:00 Mechanical Ventilator 02/13/19 16:00 73 02/13/19 16:00 99.0 78 18 141/70 (93) 02/13/19 15:27 73 20 35 02/13/19 13:14 72 17 35 02/13/19 12:49 145/67 02/13/19 12:00 Mechanical Ventilator 02/13/19 12:00 98.5 73 17 142/61 (88) 100 02/13/19 12:00 74 02/13/19 12:00 35 02/13/19 10:47 79 15 35 02/13/19 09:38 70 14 35 02/13/19 09:31 145/67 02/13/19 09:30 72 145/67 02/13/19 08:00 35 02/13/19 08:00 72 02/13/19 08:00 Mechanical Ventilator 02/13/19 08:00 98.6 70 18 145/67 (93) 100 70 02/13/19 07:07 66 14 35 02/13/19 05:05 75 19 35 02/13/19 05:03 147/74 02/13/19 04:00 35 02/13/19 04:00 Mechanical Ventilator 02/13/19 03:59 97.8 76 20 147/74 (98) 99 76 02/13/19 03:55 69 02/13/19 03:01 75 16 35 02/13/19 01:12 70 19 35 02/13/19 01:00 98.1 71 18 140/62 (88) 99 71 02/13/19 00:00 71 02/13/19 00:00 Mechanical Ventilator 02/13/19 00:00 35 02/13/19 00:00 96.8 72 22 142/66 (91) 100 72 02/12/19 23:15 68 18 35 02/12/19 23:00 138/67 02/12/19 21:35 97.7 69 18 138/54 (82) 99 69 02/12/19 21:20 97.8 68 18 129/62 (84) 99 68 02/12/19 20:59 89 17 35 02/12/19 20:50 97.8 70 18 128/60 (82) 99 70 02/12/19 20:15 124/55 02/12/19 20:00 66 02/12/19 20:00 35 02/12/19 20:00 Mechanical Ventilator 02/12/19 20:00 97.9 66 16 124/55 (78) 99 66 02/12/19 19:07 64 16 35 02/12/19 18:19 87 119/48 02/12/19 18:19 119/48 02/12/19 17:02 87 14 35 02/12/19 16:00 98.3 81 16 119/48 (71) 100 81 02/12/19 16:00 Mechanical Ventilator 02/12/19 16:00 35 02/12/19 16:00 85 02/12/19 15:18 73 19 35 02/12/19 13:20 75 15 35 02/12/19 12:49 127/47 02/12/19 12:00 35 02/12/19 12:00 Mechanical Ventilator 02/12/19 12:00 68 02/12/19 12:00 99.3 69 16 127/47 (73) 100 69 02/12/19 11:00 61 14 35 02/12/19 09:46 125/46 02/12/19 09:44 66 125/46 02/12/19 08:56 66 14 35 02/12/19 08:00 99.3 70 17 125/46 (72) 100 70 02/12/19 08:00 67 02/12/19 08:00 35 02/12/19 08:00 Mechanical Ventilator 02/12/19 07:22 67 16 35 02/12/19 05:50 135/60 02/12/19 05:29 81 17 35 02/12/19 04:00 35 02/12/19 04:00 98.1 67 20 135/60 (85) 100 66 02/12/19 04:00 72 02/12/19 04:00 Mechanical Ventilator 02/12/19 03:30 87 18 35 02/12/19 01:30 64 14 35 02/12/19 00:00 Mechanical Ventilator 02/12/19 00:00 68 02/12/19 00:00 98.0 66 20 122/43 (69) 100 66 02/12/19 00:00 35 02/11/19 23:27 122/43 02/11/19 23:01 65 14 35 Intake and Output 02/12/19 02/13/19 19:00 07:00 Intake Total 410 ml 525 ml Balance 410 ml 525 ml Intake Free Water 130 ml 30 ml Tube Feeding 180 ml 495 ml Blood Product 100 ml # Bowel Movements 1 Labs Test 02/11/19 05:10 02/12/19 05:50 02/13/19 04:09 White Blood Count 6.0 K/UL (4.8-10.8) 4.5 K/UL (4.8-10.8) 7.5 K/UL (4.8-10.8) Red Blood Count 2.70 M/UL (4.20-5.40) 2.20 M/UL (4.20-5.40) 3.30 M/UL (4.20-5.40) Hemoglobin 8.7 G/DL (12.0-16.0) 7.1 G/DL (12.0-16.0) 10.6 G/DL (12.0-16.0) Hematocrit 25.0 % (37.0-47.0) 20.3 % (37.0-47.0) 30.3 % (37.0-47.0) Mean Corpuscular Volume 92 FL (80-99) 92 FL (80-99) 92 FL (80-99) Mean Corpuscular Hemoglobin 32.1 PG (27.0-31.0) 32.3 PG (27.0-31.0) 32.1 PG (27.0-31.0) Mean Corpuscular Hemoglobin Concent 34.7 G/DL (32.0-36.0) 35.1 G/DL (32.0-36.0) 35.0 G/DL (32.0-36.0) Red Cell Distribution Width 12.7 % (11.6-14.8) 12.2 % (11.6-14.8) 12.6 % (11.6-14.8) Platelet Count 156 K/UL (150-450) 58 K/UL (150-450) 155 K/UL (150-450) Mean Platelet Volume 6.2 FL (6.5-10.1) 6.6 FL (6.5-10.1) 5.3 FL (6.5-10.1) Neutrophils (%) (Auto) 61.7 % (45.0-75.0) % (45.0-75.0) 75.2 % (45.0-75.0) Lymphocytes (%) (Auto) 19.9 % (20.0-45.0) % (20.0-45.0) 14.3 % (20.0-45.0) Monocytes (%) (Auto) 14.0 % (1.0-10.0) % (1.0-10.0) 8.8 % (1.0-10.0) Eosinophils (%) (Auto) 3.0 % (0.0-3.0) % (0.0-3.0) 1.0 % (0.0-3.0) Basophils (%) (Auto) 1.4 % (0.0-2.0) % (0.0-2.0) 0.7 % (0.0-2.0) Sodium Level 135 MMOL/L (136-145) 135 MMOL/L (136-145) 136 MMOL/L (136-145) Potassium Level 3.5 MMOL/L (3.5-5.1) 4.0 MMOL/L (3.5-5.1) 4.9 MMOL/L (3.5-5.1) Chloride Level 97 MMOL/L (98-107) 98 MMOL/L (98-107) 96 MMOL/L (98-107) Carbon Dioxide Level 26 MMOL/L (21-32) 29 MMOL/L (21-32) 22 MMOL/L (21-32) Anion Gap 12 mmol/L (5-15) 9 mmol/L (5-15) 18 mmol/L (5-15) Blood Urea Nitrogen 62 mg/dL (7-18) 44 mg/dL (7-18) 50 mg/dL (7-18) Creatinine 5.5 MG/DL (0.55-1.30) 4.3 MG/DL (0.55-1.30) 5.1 MG/DL (0.55-1.30) Estimat Glomerular Filtration Rate 8.1 mL/min (>60) 10.8 mL/min (>60) 8.8 mL/min (>60) Glucose Level 243 MG/DL (74-106) 224 MG/DL (74-106) 226 MG/DL (74-106) Calcium Level 9.2 MG/DL (8.5-10.1) 8.4 MG/DL (8.5-10.1) 9.0 MG/DL (8.5-10.1) Phosphorus Level 3.3 MG/DL (2.5-4.9) 2.8 MG/DL (2.5-4.9) 3.6 MG/DL (2.5-4.9) Magnesium Level 2.7 MG/DL (1.8-2.4) Total Bilirubin 0.4 MG/DL (0.2-1.0) 0.4 MG/DL (0.2-1.0) 0.6 MG/DL (0.2-1.0) Aspartate Amino Transf (AST/SGOT) 22 U/L (15-37) 23 U/L (15-37) 41 U/L (15-37) Alanine Aminotransferase (ALT/SGPT) 20 U/L (12-78) 12 U/L (12-78) 30 U/L (12-78) Alkaline Phosphatase 222 U/L (46-116) 174 U/L (46-116) 210 U/L (46-116) Total Protein 7.8 G/DL (6.4-8.2) 6.1 G/DL (6.4-8.2) 7.5 G/DL (6.4-8.2) Albumin 3.2 G/DL (3.4-5.0) 2.4 G/DL (3.4-5.0) 3.0 G/DL (3.4-5.0) Globulin 4.6 g/dL 3.7 g/dL 4.5 g/dL Albumin/Globulin Ratio 0.7 (1.0-2.7) 0.6 (1.0-2.7) 0.7 (1.0-2.7) Differential Total Cells Counted 100 Neutrophils % (Manual) 54 % (45-75) Lymphocytes % (Manual) 29 % (20-45) Monocytes % (Manual) 11 % (1-10) Eosinophils % (Manual) 4 % (0-3) Basophils % (Manual) 1 % (0-2) Band Neutrophils 1 % (0-8) Nucleated Red Blood Cells 3 /100 WBC Platelet Estimate Decreased Platelet Morphology Normal Polychromasia 1+ Hypochromasia 3+ Anisocytosis 1+ HIV (1&2) Antibody Rapid Negative (NEGATIVE) Height (Feet): 5 Height (Inches): 1.00 Weight (Pounds): 246 Objective PHYSICAL EXAMINATION: VITAL SIGNS: on a vent HEAD AND NECK: Atraumatic and normocephalic. Trach in place. CHEST: Clear to auscultation. No wheezing. No crackles. HEART: S1, S2. Regular rate and rhythm. ABDOMEN: Soft. Morbidly obese. Limited evaluation. NEUROLOGY: The patient is delirious. Not verbally communicate. MUSCULOSKELETAL: Positive for right-sided AKA and left-sided mid tarsal amputation of the left foot. Right thigh av fistula Kleynberg,Sung L. MD Feb 13, 2019 22:09
--- NOTE | 2019-02-14 09:09 | Discharge Summary ---
Discharge Summary Discharge Summary _ DATE OF ADMISSION: 02/08/2019 DATE OF DISCHARGE: 02/13/2019 DISCHARGED BY: Dr. Friedman REASON FOR ADMISSION: 54 years old female with past medical history of end-stage renal disease, on hemodialysis, chrobnci respiratory failure, ventilator dependent, severe peripheral vascular disease, R BKA, bedbound, HTN, diabetes mellitus, was admitted due to malfunctioning right thigh AV fistula and right thigh fistulogram. CONSULTANTS: air conditioning engineer Dr. Cunha bacon stringer/oncologist Dr. Hollingsworth vascular surgery [facility] COURSE: Patient admitted to [facility]. Patient subsequently undergone on 02/08 right thigh fistulogram and POLICE LIAISON. Electron Beam Welding Machine Operator followed. Hemodialysis provided as per air conditioning engineer recommendation with close monitoring of volumes r, enal parameters and electrolytes. Patient required transfusion during hemodialysis for hemoglobin 5.6. Patient received total of 4 units of packed red blood cells while in the hospital. Hemoglobin and hematocrit were closely monitored with goal to keep hemoglobin above 7. Prior to discharge hemoglobin 10.6 , hematocrit 30.3. Anemia work-up revealed stable iron , ferritin high 1356. Patient started on Epogen 3 times a week. Per bacon stringer no evidence of hemolysis. Ventilator support and tracheostomy care provided. Pulmonary toilet provided as needed. Blood pressure was managed with angiotensin receptor lasha and hydralazine. Blood sugar was managed with sliding scale of insulin. Seizure precaution maintained. Keppra continued. No evidence of seizure activity while in the hospital. Strict aspiration precautions were maintained. G-tube feeding continued. Patient was able to tolerate G-tube feeding. Patient also undergone removal of Perma-Cath by interventional radiologist. Follow-up chest x-ray documented complete removal of the catheter. Patient was stable for discharge to [facility] for continuation of care. FINAL DIAGNOSES: Malfunctioning of the right thigh AV fistula Status post right thigh fistulogram and POLICE LIAISON End-stage renal disease, on hemodialysis Chronic respiratory failure , ventilator dependent Acute on chronic anemia , requiring blood transfusion Anemia of chronic kidney disease, Hypertension Diabetes mellitus Dysphasia feeding by PEG Severe peripheral vascular disease with right BKA DISCHARGE MEDICATIONS: See Medication Reconciliation list. DISCHARGE INSTRUCTIONS: Patient was discharged to the [facility]. Follow up with medical doctor at the facility. I have been assigned to dictate discharge summary for this account. I was not involved in the patient's management. Matilda Najera NP Feb 14, 2019 09:09
== END 2019-02-13 18:40 | DRG 314 ==
LOC: SUR 06:13 → 2W 16:17
PROC: 30233N1 Transfusion of Nonautologous Red Blood Cells into Peripheral Vein, Percutaneous Approach (ICD-10-PCS; principal; 2019-02-08 07:30)
PROC: 5A1955Z Respiratory Ventilation, Greater than 96 Consecutive Hours (ICD-10-PCS; principal; 2019-02-08 07:30)
PROC: 0JPTXXZ Removal of Tunneled Vascular Access Device from Trunk Subcutaneous Tissue and Fascia, External Approach (ICD-10-PCS; 2019-02-12)
PROC: 5A1D70Z Performance of Urinary Filtration, Intermittent, Less than 6 Hours Per Day (ICD-10-PCS; 2019-02-12)
DX: T82.510A Breakdown (mechanical) of surgically created arteriovenous fistula, initial encounter (principal); N18.6 End stage renal disease; J96.10 Chronic respiratory failure, unspecified whether with hypoxia or hypercapnia; Z43.1 Encounter for attention to gastrostomy; Z99.11 Dependence on respirator [ventilator] status; I12.0 Hypertensive chronic kidney disease with stage 5 chronic kidney disease or end stage renal disease; Y83.8 Other surgical procedures as the cause of abnormal reaction of the patient, or of later complication, without mention of misadventure at the time of the procedure; Z99.2 Dependence on renal dialysis; E11.22 Type 2 diabetes mellitus with diabetic chronic kidney disease; Z43.0 Encounter for attention to tracheostomy; I73.9 Peripheral vascular disease, unspecified; Z89.611 Acquired absence of right leg above knee; Z89.432 Acquired absence of left foot; R13.10 Dysphagia, unspecified; Z88.1 Allergy status to other antibiotic agents; Z79.4 Long term (current) use of insulin; D63.1 Anemia in chronic kidney disease; E66.9 Obesity, unspecified
CPT/HCPCS: 36415; 36589; 71045; 76000; 80048; 80053; 80061; 80299; 82550; 82607; 82728; 82746; 82962; 82977; 83036; 83540; 83550; 83735; 83880; 84100; 84443; 84484; 84550; 85007; 85025; 85610; 85730; 86140; 86703; 86706; 86850; 86900; 86901; 86920; 87070; 87081; 93005; 94002; 94003; 94150; 94664; J1815; J2250